=== PATIENT | female | born 1945 | race Caucasian/White ===

== ENCOUNTER → 2017-04-13 | Outpatient (REF) | payer MEDICARE, BC ==
[~2017-04-13] MED LIST: CELE1CAP7 PO; PRED20TA PO; TRAM50TA2 PO
[2017-04-16 00:06] LABS: Lyme Disease IgG/IgM Antibodie <0.91 ISR (0.00-0.90); Lyme Disease IgM Ab Quantitati <0.80 index (0.00-0.79)
== END ==
LOC: M LAB REF 16:16
PROVIDERS: ATTEND Nurse Practitioner Family
DX: R21 Rash and other nonspecific skin eruption (principal)

== ENCOUNTER 2017-05-26 08:44 | Emergency (ER) | payer MEDICARE, BC ==
[~2017-05-26] VITALS: Ht 160 cm; Wt 63.6 kg
[2017-05-26] MEDS ORDERED: TRAM50TA2 PO (08:54)
[2017-05-26] MEDS ORDERED: CELE1CAP7 PO (08:54)
[2017-05-26] MEDS ORDERED: methylPREDNISolone INJ 125 MG/2 ML VIAL (J2930) IM ONE (09:15)
[2017-05-26] MEDS ORDERED: KETOROLAC 30 MG/ML VIAL (J1885) IM ONE (09:15)
[2017-05-26] MEDS ORDERED: PRED20TA PO (09:53)
[2017-05-26 09:58] VITALS: BP 156/91
== END 2017-05-26 10:09 | disposition home or self-care (01) ==
LOC: M ED 08:44
DX: M54.32 Sciatica, left side (principal); M19.90 Unspecified osteoarthritis, unspecified site
CPT/HCPCS: 96372; 99283; J1885; J2930

== ENCOUNTER 2017-06-01 14:19 | Emergency (ER) | payer MEDICARE, BC ==
[~2017-06-01] VITALS: Ht 160 cm; Wt 64.5 kg
[2017-06-01] MEDS ORDERED: methylPREDNISolone INJ 125 MG/2 ML VIAL (J2930) IV ONE (17:00)
[2017-06-01] MEDS ORDERED: KETOROLAC 60 MG/2 ML VIAL (J1885) IM ONE (17:00)
[2017-06-01] MEDS ORDERED: ZOFR4TAB3 PO (17:18)
[2017-06-01] MEDS ORDERED: methylPREDNISolone INJ 125 MG/2 ML VIAL (J2930) IM ONE (17:30)
[2017-06-01] MEDS ORDERED: methylPREDNISolone INJ 125 MG/2 ML VIAL (J2930) As Ordered ONE (17:32)
[2017-06-01] MEDS ORDERED: KETOROLAC 60 MG/2 ML VIAL (J1885) As Ordered ONE (17:32)
[2017-06-01 17:58] VITALS: BP 150/88
== END 2017-06-01 18:24 | disposition home or self-care (01) ==
LOC: M ED 14:19
DX: M54.30 Sciatica, unspecified side (principal)
CPT/HCPCS: 96372; 99283; J1885; J2930

== ENCOUNTER → 2018-01-20 | Outpatient (REF) | payer MEDICARE, BC ==
[2018-01-20 19:33] LABS: GAMMA GLUTAMYLTRANSPEPTIDASE 21 U/L (5-55)
[2018-01-20 19:33] LABS: C REACTIVE PROTEIN QUANTITATIV < 0.30 MG/DL (0.00-0.30)
== END ==
LOC: M LAB REF 16:40
DX: R74.0 Nonspecific elevation of levels of transaminase and lactic acid dehydrogenase [LDH] (principal); M51.36 Other intervertebral disc degeneration, lumbar region
CPT/HCPCS: 82977

== ENCOUNTER → 2018-03-06 | Outpatient (REF) | payer MEDICARE, BC ==
[2018-03-06 19:33] LABS: GAMMA GLUTAMYLTRANSPEPTIDASE 30 U/L (5-55)
== END ==
LOC: M LAB REF 18:55
DX: R79.9 Abnormal finding of blood chemistry, unspecified (principal)
CPT/HCPCS: 82977

== ENCOUNTER → 2019-02-05 | Outpatient (REF) | payer MEDICARE, BC ==
[~2019-02-05] MED LIST changes: +ZOFR4TAB14 PO
[2019-02-05 17:54] LABS: PERCENT SATURATION 11.6 % (13.2-45.0)
[2019-02-05 17:58] LABS: FOLATE 17.3 NG/ML
== END ==
LOC: M LAB REF 16:41
PROVIDERS: ATTEND Family Medicine
DX: D64.9 Anemia, unspecified (principal)

== ENCOUNTER → 2019-12-17 | Outpatient (REF) | payer MEDICARE, BC | LOC: M LAB REF 16:06 | PROVIDERS: ATTEND Family Medicine | DX: R30.0 Dysuria (principal) ==

== ENCOUNTER → 2020-05-16 | Outpatient (REF) | payer MEDICARE, BC | LOC: M LAB REF 16:39 | PROVIDERS: ATTEND Registered Nurse | DX: N39.0 Urinary tract infection, site not specified (principal) ==

== ENCOUNTER → 2020-05-22 | Outpatient (REF) | payer MEDICARE, BC | LOC: M LAB REF 16:09 | PROVIDERS: ATTEND Physician Assistant Medical | DX: N39.0 Urinary tract infection, site not specified (principal) ==

== ENCOUNTER → 2021-01-30 | Outpatient (REF) | payer MEDICARE, BC ==
[2021-01-30 18:52] LABS: PERCENT SATURATION 6.8 % (13.2-45.0)
[2021-01-30 18:59] LABS: FOLATE 9.2 NG/ML
== END ==
LOC: M LAB REF 16:57
PROVIDERS: ATTEND Family Medicine
DX: D64.9 Anemia, unspecified (principal)

== ENCOUNTER → 2021-04-20 | Outpatient (REF) | payer MEDICARE, BC | LOC: M LAB REF 16:44 | PROVIDERS: ATTEND Family Medicine | DX: N39.0 Urinary tract infection, site not specified (principal) ==

== ENCOUNTER 2021-05-01 17:20 | Inpatient (IN) | payer MEDICARE, BC ==
[~2021-05-01] VITALS: Ht 160 cm; Wt 65.2 kg
--- OUTSIDE RECORDS SUMMARY | 2021-05-01 17:32 | CCD | Continuity of Care Document ---
Author Author Love VALDEZ [facility] Unknown Address [address] [place] [address] [place] [address] Phone [phone] Problems Description No Information Available Social History Type Date Description Comments Sex Unknown ETOH Use Denies alcohol use Tobacco Use Start: Unknown Patient has never smoked Allergies, Adverse Reactions, Alerts Description No Known Drug Allergies Medications Active Medications SIG Qnty Indications Ordering Provide r Date Amoxicillin 875mg Tablets take one tablet every 12 hrs.x 10 days. 20tabs J01.10 Jarett Ocasio JR., M.D. 03/31/2021 Valsartan Unknown Pantoprazole Sodium Unknown Vitamin D 3 Unknown Biotin Unknown Vitamin C Unknown Geritol Complete Unknown 00 Nyquil Severe Cold/Flu Unknown Tylenol 11:00 am today Unknown History Medications No Active Medications Unknown - 03/31/2021 Immunizations Description No Information Available Vital Signs Date Vital Result Comment 03/31/2021 3:23pm BP Systolic 153 mmHg BP Diastolic 90 mmHg Heart Rate 64 /min Respiratory Rate 6 /min O2 % BldC Oximetry 96 % Body Temperature 98.4 F Weight 145.00 lb Height 64 inches 5'4" BMI (Body Mass Index) 24.9 kg/m2 Pain Level 5 02/18/2015 5:39pm BP Systolic 174 mmHg BP Diastolic 95 mmHg Heart Rate 59 /min Respiratory Rate 18 /min O2 % BldC Oximetry 97 % Body Temperature 97.0 F Weight 148.00 lb Height 64 inches 5'4" BMI (Body Mass Index) 25.4 kg/m2 Pain Level 8 Results Description No Information Available Procedures Date Code Description Status 03/31/2021 32905 Office/Outpatient New Low MDM 30 -44 Minutes Completed Medical Devices Description No Information Available Encounters Type Date Location Provider Dx Diagnosis Office Visit 03/31/2021 1:15p Main Office CATRACHITO Iyv J01 .10 Acute frontal sinusitis, unspecified R05 Cough Z20.828 Contact w and exposure to ot h viral communicable diseases Assessments Date Code Description Provider 03/31/2021 J01.10 Acute frontal sinusitis, unspeci fied CATRACHITO Ivy 03/31/2021 R05 Cough CATRACHITO Doshi 03/31/2021 Z20.828 Contact with and ([place] spected) exposure to other viral communicable diseases CATRACHITO Ivy Plan of Treatment No Information Available Functional Status Description No Information Available Mental Status Description No Information Available Referrals Description No Information Available
--- OUTSIDE RECORDS SUMMARY | 2021-05-01 17:32 | CCD | Continuity of Care Document ---
Author Author Lab Schedule, [facility] Unknown Address [address] [address] Phone Unavailable Care Team Providers Care Matrix Bath Operator Name Role Phone Renard Abdi MD AUT[facility] [phone] [facility] [phone] Problems Active Problems Provider Date Osteoarthritis Onset: 04/20/2008 Hypertensive disorder Onset: 01/30/2008 Allergic rhinitis Onset: 01/27/2008 Squamous cell carcinoma Onset: 8 Insomnia Onset: Depressive disorder Onset: Osteopenia Onset: Finding of frequency of urination Onset: Social History Type Date Description Comments Sex Unknown ETOH Use Occasionally consumes wine Tobacco Use Start: Unknown Patient has never smoked Allergies and adverse reactions Active Allergies Criticality Reaction | Severity Comments Date Celexa Unable to assess criticality Mild, Nausea n/v 01/20/2012 Zoloft Unable to assess criticality Mild, Nausea n/v 01/20/2012 Medications Active Medications SIG Qnty Indications Ordering Provide r Date Levofloxacin 250mg Tablets 1 tablet by mouth daily for 7 days (normal Creatinine) 7tabs Renard Abdi M.D. 04/23/2021 Hydrocodone Polistirex/Chlorpheniramine Polistirex 10- 8mg/5ML Suer 1 teaspoon twice daily as needed cough 50ml Renard Abdi M.D. 04/03/2021 Trazodone HCL 50mg Tablets take one half tablet by mouth at bedtime 30tabs Renard Abdi M.D. 04/21/2020 Detrol LA 4mg Caps ER 24HR 1 by mouth every evening 90caps CATRACHITO Pagan JR 020 Vitamin D-3 25mcg (1000 Ut) Capsul es 2 by mouth every day otc Renard Abdi M.D. 020 Vitamin B-12 1000mcg Tablets 1 by mouth every day 90taraymond Abdi M.D. 02/02/2019 Celebrex 200mg Capsules 1 by mouth every day 90dario Abdi M.D. 03/03/2018 Ventolin HFA 108(90Base) mcg/Act A erosol 2 puffs every 4 hours as needed for shortness of breath 3units Phyl Xiao, PLUG CUTTER 05/03/2017 Multivitamins Capsules 1 by mouth every day 30dario Abdi M.D. 12/08/2015 Aspir-[address] 1 by mouth every day Renard Abdi M.D. 05/22/2015 Flonase Allergy Relief 50mcg/Act Suspension take as directed. as needed 29.7ml Renard acevedo M.D. 03/15/2013 Lisinopril 10mg Tablets one pill by mouth daily 90tabs Renard Abdi M.D. History Medications Macrobid 100mg Capsules 1 by mouth twice a day x 7 days 14caps Renard Abdi M.D. 04/20/2021 - 04/23/2021 Medications Administered in Office Medication SIG Qnty Indications Ordering Provider Date Administration Of Flu Vaccine Inj ection Renard Abdi M.D. 04/21/2020 Immunizations CPT Code Status Date Vaccine Lot # [id number] Given 04/21/2020 Influenza Vaccin e Quadrivalent Preser/Antibiotic Free Im Use [id number] Given 07/20/2010 Zoster Vaccine 66857 Given 07/22/2008 Adacel- Tetanus Diphtheria P ertussis 68822 Refused 12/08/2017 Pneumovax 23 47587 Refused 12/08/2017 Prevnar 13 19729 Refused 04/25/2013 Influenza Virus Vaccine 41414 Refused 04/11/2012 Influenza Virus Vaccine 34189 Refused 04/17/2008 Influenza Virus Vaccine Vital Signs Date Vital Result Comment 05/22/2020 1:58pm BP Systolic 140 mmHg BP Diastolic 70 mmHg Heart Rate 75 /min Height 65 inches 5'5" Weight 148.00 lb O2 % BldC Oximetry 96 % RM Air BMI (Body Mass Index) 24.6 kg/m2 05/16/2020 1:49pm BP Systolic 142 mmHg RT Arm BP Diastolic 68 mmHg RT Arm Heart Rate 80 /min Height 65 inches 5'5" Weight 148.00 lb BMI (Body Mass Index) 24.6 kg/m2 Results Test Acquired Date Facility Test Result H/L Range Note Laboratory test finding 04/20/2021 [place] [id number] [place] [id number] [phone] Urine Culture FULL REPORT IN L <SEE NOTE> Normal 1, 2 Ua Dipstick Only 04/20/2021 [facility] Mud Trucker: [place] [address] [phone] Urine Color YELLOW Yellow 3 Urine Appearance TURBID Abnormal Clear Urine PH 8.0 units 5.0 - 9.0 Urine Specific [place] 1.010 1.005 - 1.030 Urine Leukocytes MODERATE Abnormal Negative Urine Blood MODERATE Abnormal Negative Urine Protein NEGATIVE Negative -Trace Urine Glucose NEGATIVE mg/dL Negative Urine Nitrite POSITIVE Abnormal Negative Urine Ketone NEGATIVE mg/dL Negative Urine Bilirubin NEGATIVE Negative Urine Urobilinogen 0.2 mg/dL 0.2 - 1.0 Total Iron Binding Capacit 01/30/2021 [place] [id number] [phone] Iron (Fe) 34 g/dL Low 50-170 Total Iron Binding Capacity 498 g/dL High 250-450 Percent Saturation 6.8 % Low 13.2-45.0 Laboratory test finding 01/30/2021 [place] [id number] [phone] Ferritin 8 NG/ML Normal 8-252 Vitamin B12 & Folate 01/30/[address] [address] [phone] Vitamin B12 Level 781 pg/mL Normal 4 Folate 9.2 NG/ML Normal 5 Complete Blood Count 01/30/2021 [facility] Mud Trucker: Dr Jarett Ocasio [place] [id number] [phone] WBC 3.9 x10*3/UL Low 4.1 - 10.9 6 RBC 4.52 x10*6/UL 4.20 - 6.30 Hemoglobin 10.1 g/dL Low 12.0 - 18.0 Hematocrit 32.3 % Low 37.0 - 51.0 MCV 71.4 fL Low 80.0 - 97.0 MCH 22.4 pg Low 26.0 - 32.0 MCHC 31.4 g/dL 31.0 - 38.0 RDW 16.2 % High 11.6 - 13.7 PLT 254 x10*3/UL 140 - 440 MPV 9.7 FL 7.8 - 11.0 Lymph % 36.3 % 10.0 - 58.5 Mid % 8.9 % 1.7 - 9.3 Neut % 54.8 % 37.0 - 92.0 Lymph # 1.4 x10*3/UL 0.6 - 4.1 Mid # 0.4 x10*3/UL 0.1 - 0.6 Neut # 2.1 x10*3/UL 2.0 - 7.8 Comprehensive Chem Profile 01/30/2021 [facility]: [place] [address] [phone] Glucose 79 mg/dL 74 - 99 7 BUN 25 mg/dL High 7 - 18 Creatinine 0.8 mg/dL 0.6 - 1.3 Sodium 142 mEq/L 136 - 145 Potassium 4.2 mEq/L 3.5 - 5.1 Chloride 106 mEq/L 98 - 107 Carbon Dioxide 30 mEq/L 21 - 32 Calcium 9.7 mg/dL 8.5 - 10.1 Alk. Phosphatase 70 mg/dL 46 - 116 Total Bilirubin 0.5 mg/dL 0.2 - 1.0 Ast (Sgot) 42 U/L High 15 - 37 Alt (SGPT) 48 U/L 12 - 78 Albumin 4.0 g/dL 3.4 - 5.0 Total Protein 7.7 g/dL 6.4 - 8.2 A/G Ratio 1.08 CALC 1.00 - 1.90 GFR >= 60 mL/min >60 GFR >= 60 mL/min >60 8 Laboratory test finding 01/30/2021 [facility] Mud Trucker: [place] [address] [phone] Thyroid Stimulating Hormone 1.91 uIU/mL 0.3 6 - 3.74 Ua Dipstick Only 01/30/2021 [facility] Mud Trucker: [place] [address] [phone] Urine Color YELLOW Yellow Urine Appearance SL. HAZY Abnormal Clear Urine PH 5.0 units 5.0 - 9.0 Urine Specific [place] 1.015 1.005 - 1.030 Urine Leukocytes MODERATE Abnormal Negative Urine Blood MODERATE Abnormal Negative Urine Protein 1+ Abnormal Negative -Trace Urine Glucose NEGATIVE mg/dL Negative Urine Nitrite NEGATIVE Negative Urine Ketone NEGATIVE mg/dL Negative Urine Bilirubin NEGATIVE Negative Urine Urobilinogen 0.2 mg/dL 0.2 - 1.0 1 on Macrobid - will change to Levaquin until sees urology (had cx'd appt prior and saw doctors in [place] but no information). JW 2 FULL REPORT IN LAB NOTES (e[facility] W and [place]). ORGANISM 1: KLEBSIELLA PNEUMONIAE COLONY COUNT >100,000 ORGANISM 1: KLEBSIELLA PNEUMONIAE KLEBSIELLA PNEUMONIAE: REACTION TRIMETHOPRIM/SULFAMETHOXAZOLE IV 160mg TMP & 800mg SMXq6h <=20 S TRIMETHOPRIM/SULFAMETHOXAZOLE PO Bactrim DS Bid <=20 S AMPICILLIN IV 500mg q6h >=32 R AMPICILLIN PO 500mg q6h fasting >=32 R GENTAMICIN IV 80mg q8h <=1 S NITROFURANTOIN PO 100mg BID 64 I CEFAZOLIN IV 1gm q8h <=4 S LEVOFLOXACIN IV 500mg qd <=0.12 S LEVOFLOXACIN PO 250mg qd <=0.12 S LEVOFLOXACIN PO 500mg qd <=0.12 S TOBRAMYCIN IV 80mg q8h <=1 S CEFTRIAXONE IV 1gm q24h <=1 S CEFTAZIDIME IV 1gm q8h <=1 S AMPICILLIN/SULBACTAM IV 1.5g q6h 8 S PIPERACILLIN/TAZOBACTAM IV 2.25 gm q6h <=4 S AZTREONAM IV 1gm q8h <=1 S ERTAPENEM IV 1gm qd <=0.5 S MEROPENEM IV 1 gm q8h <=0.25 S MEROPENEM IV 500 mg q8h <=0.25 S TIGECYCLINE IV 50mg q12h 1 S CEFEPIME IV 1 gm q12h <=1 S CEFEPIME IV 2 gm q12h <=1 S EXTD BRD SPCTRM BETA LACTAMASE IV NEGATIVE FOR ESBL 3 started macrobid - [facility] - Nitrate positive, renal function normal on recent check. JW 4 VITAMIN B12 NORMAL RANGE NORMAL 247 - 911 PG/ML INDETERMINATE 211 - 246 PG/ML DEFICIENT LESS THAN 211 PG/ML 5 FOLATE NORMAL RANGE NORMAL GREATER THAN 5.4 NG/ML INDETERMINATE 3.4-5.4 NG/ML DEFICIENT LESS THAN 3.4 NG/ML 6 attempted to reach her (see triage), has appt but is to get records from [place] since most of year there. 7 100-125 mg/dL PRE-DIABET ES/FASTING >126 mg/dL DIABETES/FASTING 8 CHRONIC KIDNEY DISEASE STAGI NG PER NKF STAGE I & II GFR >= 60 NORMAL TO MILDLY DECREASED STAGE III GFR 30-59 MODERATELY DECREASED STAGE IV GFR 15-29 SEVERELY DECREASED STAGE V GFR <15 VERY LITTLE GFR LEFT ESRD GFR <15 ON AERIAL HURRICANE HUNTER Procedures Date Code Description Status 07/27/2016 225051450 Bone Mineral Density Test Comple melly 06/14/2012 [id number] Mammogram Completed Medical Devices Description No Information Available Encounters Description No Information Available Assessments Date Code Description Provider 01/30/2021 D64.9 Anemia, unspecified Renard pandya M.D. 01/30/2021 I12.9 Hypertensive chronic kidney disease with stage 1 through stage 4 chronic kidney disease, or unspecified chronic kidney disease Lab Schedule 01/30/2021 I12.9 Hypertensive chronic kidney disease with stage 1 through stage 4 chronic kidney disease, or unspecified chronic kidney disease Renard Abdi M.D. 01/30/2021 N18.30 Chronic kidney disease, stage 3 unspecified Lab Schedule 01/30/2021 N18.30 Chronic kidney disease, stage 3 unspecified Renard Abdi M.D. 01/30/2021 E78.5 Hyperlipidemia, unspecified Lab Schedule 01/30/2021 E78.5 Hyperlipidemia, unspecified Tee Abdi M.D. Plan of Treatment 04/21/2020 - Renard Abdi M.D.* I12.9 Hypertensive chronic kidney disease w stg 1-4/unsp chr kdny * N18.30 Chronic kidney disease, stage 3 unspecified * E78.5 Hyperlipidemia, unspecified * I35.8 Other nonrheumatic aortic valve disorders * G47.09 Other insomnia * M79.605 Pain in left leg * Z85.828 Personal history of other malignant neoplasm of skin * Z23 Encounter for immunization * * Comments:* 1. Hypertension: Patient is doing well on current medications. We will continue to follow.2. Hyperlipidemia: Patient is doing well. We will follow.3. Malignant neoplasm of skin: No new symptoms. She follows up with hiv/aids care nurse at [place].4. Hypertensive chronic kidney disease: Stable. We will monitor.5. Chronic kidney disease: Stable. We will monitor.6. Nonrheumatic aortic valve disorders: No new symptoms at present. We will monitor.7. Insomnia: Not sleeping well. Zoloft does not work. Prescribed Trazodone. We will monitor.8. Pain in left leg: Improved. Follows with doctor at [place]. We will monitor.Ongoing cares: I am going to see her again in 5 months with comprehensive chem profile, lipid profile. If she has new problems or issues sooner, she will let us know. Functional Status Description No Information Available Mental Status Description No Information Available Referrals Refer to Reason for Referral Status Appt Date [facility] CONSULT FOR RECURRENT UTI'S Patient No tified 03/27/2021 [id number] eZv GRAY, [place] [address] [phone]
--- OUTSIDE RECORDS SUMMARY | 2021-05-01 17:32 | CCD | Continuity of Care Document ---
Author Author Love VALDEZ [facility] Unknown Address [address] [place] [address] [place] [address] Phone [phone] Problems Description No Information Available Social History [...] Available Procedures Date Code Description Status 03/31/2021 01126 Office/Outpatient New Low MDM 30 -44 Minutes Completed Medical Devices Description No Information Available Encounters Type Date Location Provider Dx Diagnosis Office Visit 03/31/2021 1:15p Main Office CATRACHITO Ivy J01 .10 Acute frontal sinusitis, unspecified R05 [...]
--- OUTSIDE RECORDS SUMMARY | 2021-05-01 17:32 | CCD | Continuity of Care Document ---
Author Author Love NGUYEN M.D. Organization Unknown Address [address] [facility] [address] [place] [address] Phone [phone] Care Team Providers Care Cut And Cover Line Worker Name Role Phone Renard Nguyen MD [facility] [phone] Problems Active Problems Provider Date Osteoarthritis Onset: 04/20/2008 Hypertensive disorder Onset: 01/30/2008 Allergic rhinitis Onset: 01/27/2008 Squamous cell carcinoma Onset: 8 Insomnia Onset: Depressive disorder Onset: Osteopenia Onset: Finding of frequency of urination Onset: Social History Type Date Description Comments Sex Unknown ETOH Use Occasionally consumes wine Tobacco Use Start: Unknown Patient has never smoked Allergies, Adverse Reactions, Alerts Active Allergies Criticality Reaction | Severity Comments Date Celexa Unable to assess criticality Mild, Nausea n/v 01/20/2012 Zoloft Unable to assess criticality Mild, Nausea n/v 01/20/2012 Medications Active Medications SIG Qnty Indications Ordering Provide r Date Keflex 250mg Capsules 1 by mouth two times a day x 5 days 10caps CATRACHITO Pagan JR 020 Prednisone 20mg Tablets 1 by mouth every morning for 7 days 7tabs CATRACHITO Pagan JR 11/2019 Trazodone HCL 50mg Tablets take one half tablet by mouth at bedtime 30tabs Renard Nguyen M.D. 04/21/2020 Tussionex Pennkinetic Extended Release 10-8mg/5ML Suer 1/2 to 1 teaspoon at twice a day as needed cough 115ml R05 Renard Nguyen M.D. 04/21/2020 Detrol LA 4mg Caps ER 24HR 1 by mouth every evening 90caps CATRACHITO Pagan JR 020 Vitamin D-3 25mcg (1000 Ut) Capsul es 2 by mouth every day otc Renard Nguyen M.D. 020 Vitamin B-12 1000mcg Tablets 1 by mouth every day 90taraymond Nguyen M.D. 02/02/2019 Celebrex 200mg Capsules 1 by mouth every day 90dario Nguyen M.D. 03/03/2018 Tramadol HCL 50mg Tablets 1tab twice a day as needed pain 60tabs Renard Nguyen M.D. 05/24/2017 Ventolin HFA 108(90Base) mcg/Act A erosol 2 puffs every 4 hours as needed for shortness of breath 3units Dinesh Xiao, ROLLING MILL PLUGGER 05/03/2017 Multivitamins Capsules 1 by mouth every day 30capmoira Nguyen M.D. 12/08/[address]ir-[address] 1 by mouth every day Renard Nguyen M.D. 05/22/2015 Flonase Allergy Relief 50mcg/Act Suspension take as directed. as needed 29.7ml Renard acevedo M.D. 03/15/2013 Lisinopril 10mg Tablets one pill by mouth daily 90tabs Renard Nguyen M.D. Medications Administered in Office Medication SIG Qnty Indications Ordering Provider Date Administration Of Flu Vaccine Inj ection Renard Nguyen M.D. 04/21/2020 Immunizations CPT Code Status Date Vaccine Lot # [id number] Given 04/21/2020 Influenza Vaccin e Quadrivalent Preser/Antibiotic Free Im Use [id number] 56379 Given 07/20/2010 Zoster Vaccine 61716 Given 07/22/2008 Adacel- Tetanus Diphtheria P ertussis (Age64 & Under) 31210 Refused 12/08/2017 Pneumovax 23 10744 Refused 12/08/2017 Prevnar 13 58795 Refused 04/25/2013 Influenza Virus Vaccine 61536 Refused 04/11/2012 Influenza Virus Vaccine 02200 Refused 04/17/2008 Influenza Virus Vaccine Vital Signs [...] Date Facility Test Result H/L Range Note Total Iron Binding Capacit 01/30/2021 [facility] [address] [place], [place] [id number] [phone] Iron (Fe) 34 g/dL Low 50-170 Total Iron Binding Capacity 498 g/dL High 250-450 Percent Saturation 6.8 % Low 13.2-45.0 Laboratory test finding 01/30/2021 [facility] [address] [place], [place] [id number] [phone] Ferritin 8 NG/ML Normal 8-252 Vitamin B12 & Folate 01/30/2021 [facility] [address] [place], [place] [address] [phone] Vitamin B12 Level 781 pg/mL Normal 1 Folate 9.2 NG/ML Normal 2 Complete Blood Count 01/30/2021 [facility] Home Health Lvn: [place] [address] [phone] WBC 3.9 x10*3/UL Low 4.1 - 10.9 RBC 4.52 x10*6/UL 4.20 - 6.30 Hemoglobin [...] 2.0 - 7.8 Comprehensive Chem Profile 01/30/2021 [facility], [facility] Lvn: [place] [address] [phone] Glucose 79 mg/dL 74 - 99 3 BUN 25 mg/dL High 7 - 18 [...] mL/min >60 GFR >= 60 mL/min >60 4 Laboratory test finding 01/30/2021 [facility], Home Health Lvn: [place] [address] [phone] Thyroid Stimulating Hormone 1.91 uIU/mL 0.3 6 - 3.74 Ua Dipstick Only 01/30/2021 [facility] , Home Health Lvn: [place] [address] [phone] Urine Color YELLOW Yellow Urine Appearance SL. HAZY Abnormal Clear Urine PH 5.0 units 5.0 - 9.0 Urine Specific [place] 1.015 1.005 - 1.030 Urine Leukocytes MODERATE Abnormal Negative Urine Blood MODERATE Abnormal Negative Urine Protein 1+ Abnormal Negative -Trace Urine Glucose NEGATIVE mg/dL Negative Urine Nitrite NEGATIVE Negative Urine Ketone NEGATIVE mg/dL Negative Urine Bilirubin NEGATIVE Negative Urine Urobilinogen 0.2 mg/dL 0.2 - 1.0 1 VITAMIN B12 NORMAL RANGE NORMAL 247 - 911 PG/ML INDETERMINATE 211 - 246 PG/ML DEFICIENT LESS THAN 211 PG/ML 2 FOLATE NORMAL RANGE NORMAL GREATER THAN 5.4 NG/ML INDETERMINATE 3.4-5.4 NG/ML DEFICIENT LESS THAN 3.4 NG/ML 3 100-125 mg/dL PRE-DIABET ES/FASTING >126 mg/dL DIABETES/FASTING 4 CHRONIC KIDNEY DISEASE STAGI NG PER NKF STAGE I & II GFR >= 60 NORMAL TO MILDLY DECREASED STAGE III GFR 30-59 MODERATELY DECREASED STAGE IV GFR 15-29 SEVERELY DECREASED STAGE V GFR <15 VERY LITTLE GFR LEFT ESRD GFR <15 ON SUPERVISOR EDGING Procedures Date Code Description Status 07/27/2016 [id number] Bone Mineral Density Test Comple melly 06/14/2012 [id number] Mammogram Completed Medical Devices Description No Information Available Encounters Description No Information Available Assessments Date Code Description Provider 01/30/2021 D64.9 Anemia, unspecified Rneard pandya M.D. 01/30/2021 I12.9 Hypertensive chronic kidney disease with stage 1 through stage 4 chronic kidney disease, or unspecified chronic kidney disease Lab Schedule 01/30/2021 I12.9 Hypertensive chronic kidney disease with stage 1 through stage 4 chronic kidney disease, or unspecified chronic kidney disease Renard Nguyen M.D. 01/30/2021 N18.30 Chronic kidney disease, stage 3 unspecified Lab Schedule 01/30/2021 N18.30 Chronic kidney disease, stage 3 unspecified Renard Nguyen M.D. 01/30/2021 E78.5 Hyperlipidemia, unspecified Lab Schedule 01/30/2021 E78.5 Hyperlipidemia, unspecified Tee Nguyen M.D. Plan of Treatment Future Appointment(s):* 03/30/2021 1:00 pm - [facility] 04/21/2020 - Renard Nguyen M.D.* I12.9 Hypertensive chronic kidney disease w [...] No new symptoms. She follows up with certified bench jeweler technician at [place].4. Hypertensive chronic kidney disease: Stable. We will monitor.5. Chronic kidney disease: Stable. We will monitor.6. Nonrheumatic aortic valve disorders: No new symptoms at present. We will monitor.7. Insomnia: Not sleeping well. Zoloft does not work. Prescribed Trazodone. We will monitor.8. Pain in left leg: Improved. Follows with doctor at [place]. We will monitor.Ongoing cares: I am going to see her again in 5 months with comprehensive chem profile, lipid profile. If she has new problems or issues sooner, she will let us know. Functional Status Description No Information Available Mental Status Description No Information Available Referrals Refer to Reason for Referral Status Appt Date [facility] CONSULT FOR RECURRENT UTI'S Patient No tified 03/27/2021 [id number] Zev RGAY, [place] [address] [phone]
--- OUTSIDE RECORDS SUMMARY | 2021-05-01 17:32 | CCD ---
Continuity of Care Document (CCD) Created on: 04/24/2021 TobiasLove flores External Reference #: [id number] : [id number] Sex: Female Author Author Lab Schedule, [facility] Unknown Address [address] [address] Phone Unavailable Care Team Providers Care Locomotive Oiler Name Role Phone Renard Abdi MD AUTM [phone] [facility] AUTM Problems Active Problems Provider Date Osteoarthritis Onset: [...] for shortness of breath 3units Phyl Xiao, CURRICULUM MANAGER 05/03/2017 Multivitamins Capsules 1 by mouth every [...] CPT Code Status Date Vaccine Lot # [id number] Given 04/21/2020 Influenza Vaccin e Quadrivalent Preser/Antibiotic Free Im Use [id number] 86437 Given 07/20/2010 Zoster Vaccine 32558 Given 07/22/2008 Adacel- Tetanus Diphtheria P ertussis 18257 Refused 12/08/2017 Pneumovax 23 03389 Refused 12/08/2017 Prevnar 13 83918 Refused 04/25/2013 Influenza Virus Vaccine 50326 Refused 04/11/2012 Influenza Virus Vaccine 06526 Refused 04/17/2008 Influenza Virus Vaccine Vital Signs [...] H/L Range Note Laboratory test finding 04/20/2021 [place] [id number] [place] [id number] [phone] Urine Culture FULL REPORT IN L <SEE NOTE> Normal 1, 2 Ua Dipstick Only 04/20/2021 [facility] Educational Recruiter: [place] [address] [phone] Urine Color YELLOW Yellow 3 Urine Appearance TURBID Abnormal Clear Urine PH 8.0 units 5.0 - 9.0 Urine Specific [place] 1.010 1.005 - 1.030 Urine Leukocytes MODERATE Abnormal Negative Urine Blood MODERATE Abnormal Negative Urine Protein NEGATIVE Negative -Trace Urine Glucose NEGATIVE mg/dL Negative Urine Nitrite POSITIVE Abnormal Negative Urine Ketone NEGATIVE mg/dL Negative Urine Bilirubin NEGATIVE Negative Urine Urobilinogen 0.2 mg/dL 0.2 - 1.0 Total Iron Binding Capacit 01/30/2021 [place] [id number] [phone] Iron (Fe) 34 g/dL Low 50-170 Total Iron Binding Capacity 498 g/dL High 250-450 Percent Saturation 6.8 % Low 13.2-45.0 Laboratory test finding 01/30/2021 [place] [id number] [phone] Ferritin 8 NG/ML Normal 8-252 Vitamin B12 & Folate 01/30/[address] [address] [phone] Vitamin B12 Level 781 pg/mL Normal 4 Folate 9.2 NG/ML Normal 5 Complete Blood Count 01/30/2021 [facility] Educational Recruiter: Dr Jarett Ocasio [place] [id number] [phone] WBC 3.9 x10*3/UL Low 4.1 - 10.9 [...] 2.0 - 7.8 Comprehensive Chem Profile 01/30/2021 [facility] Educational Recruiter: Dr J[place] [address] [phone] Glucose 79 mg/dL 74 - 99 7 [...] mL/min >60 8 Laboratory test finding 01/30/2021 [facility] Educational Recruiter: [place] [address] [phone] Thyroid Stimulating Hormone 1.91 uIU/mL 0.3 6 - 3.74 Ua Dipstick Only 01/30/2021 [facility] Educational Recruiter: [place] [address] [phone] Urine Color YELLOW Yellow Urine Appearance SL. HAZY Abnormal Clear Urine PH 5.0 units 5.0 - 9.0 Urine Specific [place] 1.015 1.005 - 1.030 Urine Leukocytes MODERATE [...] cx'd appt prior and saw doctors in [place] but no information). JW 2 FULL REPORT [...] ESBL 3 started macrobid - sent to [facility] - Nitrate positive, renal function normal on recent check. JW 4 VITAMIN B12 NORMAL RANGE NORMAL 247 - 911 PG/ML INDETERMINATE 211 - 246 PG/ML DEFICIENT LESS THAN 211 PG/ML 5 FOLATE NORMAL RANGE NORMAL GREATER THAN 5.4 NG/ML INDETERMINATE 3.4-5.4 NG/ML DEFICIENT LESS THAN 3.4 NG/ML 6 attempted to reach her (see triage), has appt but [place] to get records from [place] since most of year there. 7 100-125 mg/dL PRE-DIABET ES/FASTING >126 mg/dL DIABETES/FASTING 8 CHRONIC KIDNEY DISEASE STAGI NG PER NKF STAGE I & II GFR >= 60 NORMAL TO MILDLY DECREASED STAGE III GFR 30-59 MODERATELY DECREASED STAGE IV GFR 15-29 SEVERELY DECREASED STAGE V GFR <15 VERY LITTLE GFR LEFT ESRD GFR <15 ON MOBILE MECHANIC Procedures Date Code Description Status 07/27/2016 [id number] Bone Mineral Density Test Comple melly 06/14/2012 [id number] Mammogram Completed Medical Devices Description No Information Available Encounters Description No Information Available Assessments Date Code Description Provider 04/20/2021 R35.0 Frequency of micturition Renard Abdi M.D. 04/20/2021 R35.0 Frequency of micturition Lab [facility] 01/30/2021 D64.9 Anemia, unspecified Renard pandya M.D. [...] No new symptoms. She follows up with government sales manager at [place].4. Hypertensive chronic kidney disease: Stable. [...] to Reason for Referral Status Appt Date [facility] CONSULT FOR RECURRENT UTI'S Patient No tified 03/27/2021 [id number], [facility] [place] [address] [phone]
--- OUTSIDE RECORDS SUMMARY | 2021-05-01 17:32 | CCD | Continuity of Care Document ---
Author Author Lab Schedule, [facility] Unknown Address [address] [address] Phone Unavailable Care Team Providers Care Workday Manager Name Role Phone Renard Abdi MD AUTM [phone] Problems Active Problems Provider Date Osteoarthritis Onset: [...] at bedtime 30tabs Renard Abdi M.D. 04/21/2020 Tussionex Pennkinetic Extended Release 10-8mg/5ML Suer 07/19 to 1 teaspoon at twice a day as needed cough 115ml R05 Renard Abdi M.D. 04/21/2020 Detrol LA 4mg Caps ER 24HR 1 by mouth every evening 90caps CATRACHITO Pagan JR 020 Vitamin D-3 25mcg (1000 Ut) Capsul es 2 by mouth every day otc Renard Abdi M.D. 020 Vitamin B-12 1000mcg Tablets 1 by mouth every day 90taraymond Abdi M.D. 02/02/2019 Celebrex 200mg Capsules 1 by mouth every day 90dario Abdi M.D. 03/03/2018 Tramadol HCL 50mg Tablets 1tab twice a day as needed pain 60tabs Renard Abdi M.D. 05/24/2017 Ventolin HFA 108(90Base) mcg/Act A erosol 2 puffs every 4 hours as needed for shortness of breath 3units MAGDALENA Villarreal 05/03/2017 Multivitamins Capsules 1 by mouth every day 30caps Renard Abdi M.D. 12/08/2015 [address]ir-[address] 1 by mouth every day Renard Abdi M.D. 05/22/2015 Flonase Allergy Relief 50mcg/Act Suspension take as directed. as needed 29.7ml Renard acevedo M.D. 03/15/2013 Lisinopril 10mg Tablets one pill by mouth daily 90tabs Renard Abdi M.D. Medications Administered in Office Medication SIG Qnty Indications Ordering Provider Date Administration Of Flu Vaccine Inj ection Renard Abdi M.D. 04/21/2020 Immunizations CPT Code Status Date Vaccine Lot # [id number] Given 04/21/2020 Influenza Vaccin e Quadrivalent Preser/Antibiotic Free Im Use [id number] 02676 Given 07/20/2010 Zoster Vaccine 23630 Given 07/22/2008 Adacel- Tetanus Diphtheria P ertussis (Age64 & Under) 01323 Refused 12/08/2017 Pneumovax 23 04299 Refused 12/08/2017 Prevnar 13 85222 Refused 04/25/2013 Influenza Virus Vaccine 46645 Refused 04/11/2012 Influenza Virus Vaccine 41969 Refused 04/17/2008 Influenza Virus Vaccine Vital Signs [...] Range Note Total Iron Binding Capacit 01/30/2021 [facility] [address] [place] [address] [phone] Iron (Fe) 34 g/dL Low 50-170 Total Iron Binding Capacity 498 g/dL High 250-450 Percent Saturation 6.8 % Low 13.2-45.0 Laboratory test finding 01/30/2021 [facility] [address] [place] [address] [phone] Ferritin 8 NG/ML Normal 8-252 Vitamin B12 & Folate 01/30/2021 [facility] enter [address] [place] [address] [phone] Vitamin B12 Level 781 pg/mL Normal 1 Folate 9.2 NG/ML Normal 2 Complete Blood Count 01/30/2021 [facility] Flare Breaker: [place] [address] [phone] WBC 3.9 x10*3/UL Low 4.1 - 10.9 3 RBC 4.52 x10*6/UL 4.20 - 6.30 Hemoglobin [...] 2.0 - 7.8 Comprehensive Chem Profile 01/30/2021 [facility] Flare Breaker: [place] [address] [phone] Glucose 79 mg/dL 74 - 99 4 BUN 25 mg/dL High 7 - 18 [...] mL/min >60 GFR >= 60 mL/min >60 5 Laboratory test finding 01/30/2021 [facility], Flare Breaker: [place] [address] [phone] Thyroid Stimulating Hormone 1.91 uIU/mL 0.3 6 - 3.74 Ua Dipstick Only 01/30/2021 [facility] , Flare Breaker: [place] [address] [phone] Urine Color YELLOW Yellow Urine Appearance SL. HAZY Abnormal Clear Urine PH 5.0 units 5.0 - 9.0 Urine Specific [place] 1.015 1.005 - 1.030 Urine Leukocytes MODERATE [...] NG/ML DEFICIENT LESS THAN 3.4 NG/ML 3 attempted to reach her (see triage), has appt but is to get records from [place] since most of year there. 4 100-125 mg/dL PRE-DIABET ES/FASTING >126 mg/dL DIABETES/FASTING 5 CHRONIC KIDNEY DISEASE STAGI NG PER NKF STAGE I & II GFR >= 60 NORMAL TO MILDLY DECREASED STAGE III GFR 30-59 MODERATELY DECREASED STAGE IV GFR 15-29 SEVERELY DECREASED STAGE V GFR <15 VERY LITTLE GFR LEFT ESRD GFR <15 ON COMPUTER TAPE LIBRARIAN Procedures Date Code Description Status 07/27/2016 [id number] Bone Mineral Density Test Comple melly 06/14/2012 [id number] Mammogram Completed Medical Devices Description No Information [...] unspecified Tee Abdi M.D. Plan of Treatment Future Appointment(s):* 03/30/2021 1:00 pm - Renard Abdi M.D. at [facility] 04/21/2020 - Renard Abdi M.D.* I12.9 Hypertensive [...] No new symptoms. She follows up with community outreach manager at [place].4. Hypertensive chronic kidney disease: Stable. We will monitor.5. Chronic kidney disease: Stable. We will monitor.6. Nonrheumatic aortic valve disorders: No new symptoms at present. We will monitor.7. Insomnia: Not sleeping well. Zoloft does not work. Prescribed Trazodone. We will monitor.8. Pain in left leg: Improved. Follows with doctor at [place]. We will monitor.Ongoing cares: I am going to see her again in 5 months with comprehensive chem profile, lipid profile. If she has new problems or issues sooner, she will let us know. Functional Status Description No Information Available Mental Status Description No Information Available Referrals Refer to Reason for Referral Status Appt Date [facility] CONSULT FOR RECURRENT UTI'S Patient No tified 03/27/2021 [id number], [facility] [place] [address] [phone]
--- OUTSIDE RECORDS SUMMARY | 2021-05-01 17:32 | CCD | Continuity of Care Document ---
Author Author Lab Schedule, [facility] Unknown Address [address] [address] Phone Unavailable Care Team Providers Care Supply Requirements Officer Name Role Phone Renard Abdi MD AUTM [phone] Problems Active Problems Provider Date Osteoarthritis Onset: [...] SIG Qnty Indications Ordering Provide r Date Macrobid 100mg Capsules 1 by mouth twice a day x 7 days 14caps Renard Abdi M.D. 04/20/2021 Hydrocodone Polistirex/Chlorpheniramine Polistirex 10- 8mg/5ML Suer 1 [...] 1000mcg Tablets 1 by mouth every day 90arpit Abdi M.D. 02/02/2019 Celebrex 200mg Capsules 1 by mouth every day 90dario Abdi M.D. 03/03/2018 Ventolin HFA 108(90Base) mcg/Act A erosol 2 puffs every 4 hours as needed for shortness of breath 3units Phyl MAGDALENA Xiao 05/03/2017 Multivitamins Capsules 1 by mouth every day 30dario Abdi M.D. 12/08/2015 [address]ir-[address] 1 by mouth every day Renard Abdi M.D. 05/22/2015 Flonase Allergy Relief 50mcg/Act Suspension take as directed. as needed 29.7ml Renard acevedo M.D. 03/15/2013 Lisinopril 10mg Tablets one pill by mouth daily 90taraymond Abdi M.D. Amoxicillin 500mg Capsules two times a day for 7 days Unknown Medications Administered in Office Medication SIG Qnty Indications Ordering Provider Date Administration Of Flu Vaccine Inj ection Renard Abdi M.D. 04/21/2020 Immunizations CPT Code Status Date Vaccine Lot # [id number] Given 04/21/2020 Influenza Vaccin e Quadrivalent Preser/Antibiotic Free Im Use [id number] 83095 Given 07/20/2010 Zoster Vaccine 82550 Given 07/22/2008 Adacel- Tetanus Diphtheria P ertussis 36677 Refused 12/08/2017 Pneumovax 23 14299 Refused 12/08/2017 Prevnar 13 36615 Refused 04/25/2013 Influenza Virus Vaccine 72561 Refused 04/11/2012 Influenza Virus Vaccine 83669 Refused 04/17/2008 Influenza Virus Vaccine Vital Signs [...] H/L Range Note Laboratory test finding 04/20/2021 [place] [address] [phone] Urine Culture <pending> Ua Dipstick Only 04/20/2021 [facility] Purchasing Engineer: Dr Jarett Ocasio [place] [id number] [phone] Urine Color YELLOW Yellow 1 Urine Appearance TURBID Abnormal Clear Urine PH 8.0 units 5.0 - 9.0 Urine Specific [place] 1.010 1.005 - 1.030 Urine Leukocytes MODERATE Abnormal Negative Urine Blood MODERATE Abnormal Negative Urine Protein NEGATIVE Negative -Trace Urine Glucose NEGATIVE mg/dL Negative Urine Nitrite POSITIVE Abnormal Negative Urine Ketone NEGATIVE mg/dL Negative Urine Bilirubin NEGATIVE Negative Urine Urobilinogen 0.2 mg/dL 0.2 - 1.0 Total Iron Binding Capacit 01/30/2021 [place] [id number] [phone] Iron (Fe) 34 g/dL Low 50-170 Total Iron Binding Capacity 498 g/dL High 250-450 Percent Saturation 6.8 % Low 13.2-45.0 Laboratory test finding 01/30/[address] [address] [phone] Ferritin 8 NG/ML Normal 8-252 Vitamin B12 & Folate 01/30/2021 [facility] enter [address] [place] [address] [phone] Vitamin B12 Level 781 pg/mL Normal 2 Folate 9.2 NG/ML Normal 3 Complete Blood Count 01/30/2021 [facility] Purchasing Engineer: Dr Jarett Ocasio [place] [id number] [phone] WBC 3.9 x10*3/UL Low 4.1 - 10.9 4 RBC 4.52 x10*6/UL 4.20 - 6.30 Hemoglobin [...] 2.0 - 7.8 Comprehensive Chem Profile 01/30/2021 [facility], Purchasing Engineer: [place] [address] [phone] Glucose 79 mg/dL 74 - 99 5 BUN 25 mg/dL High 7 - 18 [...] mL/min >60 GFR >= 60 mL/min >60 6 Laboratory test finding 01/30/2021 [facility], Purchasing Engineer: [place] [address] [phone] Thyroid Stimulating Hormone 1.91 uIU/mL 0.3 6 - 3.74 Ua Dipstick Only 01/30/2021 [facility] Purchasing Engineer: Dr Jarett Ocasio [place] [id number] [phone] Urine Color YELLOW Yellow Urine Appearance SL. HAZY Abnormal Clear Urine PH 5.0 units 5.0 - 9.0 Urine Specific [place] 1.015 1.005 - 1.030 Urine Leukocytes MODERATE Abnormal Negative Urine Blood MODERATE Abnormal Negative Urine Protein 1+ Abnormal Negative -Trace Urine Glucose NEGATIVE mg/dL Negative Urine Nitrite NEGATIVE Negative Urine Ketone NEGATIVE mg/dL Negative Urine Bilirubin NEGATIVE Negative Urine Urobilinogen 0.2 mg/dL 0.2 - 1.0 1 started macrobid - sent to [facility] - Nitrate positive, renal function normal on recent check. JW 2 VITAMIN B12 NORMAL RANGE NORMAL 247 - 911 PG/ML INDETERMINATE 211 - 246 PG/ML DEFICIENT LESS THAN 211 PG/ML 3 FOLATE NORMAL RANGE NORMAL GREATER THAN 5.4 NG/ML INDETERMINATE 3.4-5.4 NG/ML DEFICIENT LESS THAN 3.4 NG/ML 4 attempted to reach her (see triage), has appt but is to get records from [place] since most of year there. 5 100-125 mg/dL PRE-DIABET ES/FASTING >126 mg/dL DIABETES/FASTING 6 CHRONIC KIDNEY DISEASE STAGI NG PER NKF STAGE I & II GFR >= 60 NORMAL TO MILDLY DECREASED STAGE III GFR 30-59 MODERATELY DECREASED STAGE IV GFR 15-29 SEVERELY DECREASED STAGE V GFR <15 VERY LITTLE GFR LEFT ESRD GFR <15 ON PET WALKER Procedures Date Code Description Status 07/27/2016 [id number] Bone Mineral Density Test Comple melly 06/14/2012 [id number] Mammogram Completed Medical Devices Description No Information [...] No new symptoms. She follows up with loader malt house at [place].4. Hypertensive chronic kidney disease: Stable. We will monitor.5. Chronic kidney disease: Stable. We will monitor.6. Nonrheumatic aortic valve disorders: No new symptoms at present. We will monitor.7. Insomnia: Not sleeping well. Zoloft does not work. Prescribed Trazodone. We will monitor.8. Pain in left leg: Improved. Follows with doctor at [place]. We will monitor.Ongoing cares: I am going to see her again in 5 months with comprehensive chem profile, lipid profile. If she has new problems or issues sooner, she will let us know. Functional Status Description No Information Available Mental Status Description No Information Available Referrals Refer to Reason for Referral Status Appt Date [facility] CONSULT FOR RECURRENT UTI'S Patient No tified 03/27/2021 [id number], [place] [address] [phone]
--- OUTSIDE RECORDS SUMMARY | 2021-05-01 17:32 | CCD | Continuity of Care Document ---
Author Author Lab Schedule, [facility] Unknown Address [address] [address] Phone Unavailable Care Team Providers Care Belling Machine Operator Name Role Phone Renard Abdi MD AUTM [phone] Problems Active Problems Provider Date Osteoarthritis Onset: [...] take as directed. as needed 29.7ml Renard aecvedo M.D. 03/15/2013 Lisinopril 10mg Tablets one pill by mouth daily 90tabs Renard Abdi M.D. Medications Administered in Office Medication SIG Qnty Indications Ordering Provider Date Administration Of Flu Vaccine Inj ection Renard Abdi M.D. 04/21/2020 Immunizations CPT Code Status Date Vaccine Lot # [id number] Given 04/21/2020 Influenza Vaccin e Quadrivalent Preser/Antibiotic Free Im Use [id number] 06995 Given 07/20/2010 Zoster Vaccine 35995 Given 07/22/2008 Adacel- Tetanus Diphtheria P ertussis (Age64 & Under) 95880 Refused 12/08/2017 Pneumovax 23 88826 Refused 12/08/2017 Prevnar 13 55030 Refused 04/25/2013 Influenza Virus Vaccine 93415 Refused 04/11/2012 Influenza Virus Vaccine 30136 Refused 04/17/2008 Influenza Virus Vaccine Vital Signs [...] Range Note Total Iron Binding Capacit 01/30/2021 [facility] [address] [place] [address] [phone] Iron (Fe) 34 g/dL Low 50-170 Total Iron Binding Capacity 498 g/dL High 250-450 Percent Saturation 6.8 % Low 13.2-45.0 Laboratory test finding 01/30/2021 [facility] [address] [place] [address] [phone] Ferritin 8 NG/ML Normal 8-252 Vitamin B12 & Folate 01/30/2021 [facility] enter [address] [place] [address] [phone] Vitamin B12 Level 781 pg/mL Normal 1 Folate 9.2 NG/ML Normal 2 Complete Blood Count 01/30/2021 [facility] Teacher Physically Impaired: [place] [address] [phone] WBC 3.9 x10*3/UL Low 4.1 - 10.9 [...] 2.0 - 7.8 Comprehensive Chem Profile 01/30/2021 [facility] Teacher Physically Impaired: Dr [place] [address] [phone] Glucose 79 mg/dL 74 - 99 3 [...] mL/min >60 4 Laboratory test finding 01/30/2021 [facility], Teacher Physically Impaired: Dr J[place] [address] [phone] Thyroid Stimulating Hormone 1.91 uIU/mL 0.3 6 - 3.74 Ua Dipstick Only 01/30/2021 [facility] , Teacher Physically Impaired: [place] [address] [phone] Urine Color YELLOW Yellow Urine Appearance SL. HAZY Abnormal Clear Urine PH 5.0 units 5.0 - 9.0 Urine Specific [place] 1.015 1.005 - 1.030 Urine Leukocytes MODERATE [...] LITTLE GFR LEFT ESRD GFR <15 ON COMMERCIAL LEASE ADMINISTRATOR Procedures Date Code Description Status 07/27/2016 [id number] Bone Mineral Density Test Comple melly 06/14/2012 [id number] Mammogram Completed Medical Devices Description No Information [...] 1:00 pm - Renard Abdi M.D. at [facility] 04/21/2020 - Renard Abdi M.D.* [...] No new symptoms. She follows up with animal cytologist at [place].4. Hypertensive chronic kidney disease: Stable. We will monitor.5. Chronic kidney disease: Stable. We will monitor.6. Nonrheumatic aortic valve disorders: No new symptoms at present. We will monitor.7. Insomnia: Not sleeping well. Zoloft does not work. Prescribed Trazodone. We will monitor.8. Pain in left leg: Improved. Follows with doctor at [place]. We will monitor.Ongoing cares: I am going to see her again in 5 months with comprehensive chem profile, lipid profile. If she has new problems or issues sooner, she will let us know. Functional Status Description No Information Available Mental Status Description No Information Available Referrals Refer to Reason for Referral Status Appt Date [facility] CONSULT FOR RECURRENT UTI'S Patient No tified 03/27/2021 [id number], [place] [address] [phone]
--- OUTSIDE RECORDS SUMMARY | 2021-05-01 17:32 | CCD | Continuity of Care Document ---
Author Author Lab Schedule, [facility] Unknown Address [address] [address] Phone Unavailable Care Team Providers Care Chiller Hand Name Role Phone Renard Abdi MD AUTM [phone] Problems Active Problems Provider Date Osteoarthritis Onset: [...] SIG Qnty Indications Ordering Provide r Date Hydrocodone Polistirex/Chlorpheniramine Polistirex 10- 8mg/5ML Suer 1 [...] 1000mcg Tablets 1 by mouth every day 90tabs Anahi PearlD. 02/02/2019 Celebrex 200mg Capsules 1 by mouth every day neeraj Abdi M.D. 03/03/2018 Ventolin HFA 108(90Base) mcg/Act A erosol 2 puffs every 4 hours as needed for shortness of breath 3units Dinesh Xiao, [place] [employer]OSS 05/03/2017 Multivitamins Capsules 1 by mouth every day 30dario Abdi M.D. 12/08/2015 Aspir-[address] 1 by mouth every day Renard Abdi M.D. 05/22/2015 Flonase Allergy Relief 50mcg/Act Suspension take as directed. as needed 29.7ml Renard acevedo M.D. 03/15/2013 Lisinopril 10mg Tablets one pill by mouth daily modesta Abdi M.D. Amoxicillin 500mg Capsules two times a day for 7 days Unknown Medications Administered in Office Medication SIG Qnty Indications Ordering Provider Date Administration Of Flu Vaccine Inj ection Renard Abdi M.D. 04/21/2020 Immunizations CPT Code Status Date Vaccine Lot # [id number] Given 04/21/2020 Influenza Vaccin e Quadrivalent Preser/Antibiotic Free Im Use [id number] Given 07/20/2010 Zoster Vaccine 73713 Given 07/22/2008 Adacel- Tetanus Diphtheria P ertussis [id number] Refused 12/08/2017 Pneumovax 23 [id number] Refused 12/08/2017 Prevnar 13 11205 Refused 04/25/2013 Influenza Virus Vaccine 71361 Refused 04/11/2012 Influenza Virus Vaccine [id number] Refused 04/17/2008 Influenza Virus Vaccine Vital Signs [...] Range Note Total Iron Binding Capacit 01/30/2021 [facility] [address] [place] [address] [phone] Iron (Fe) 34 g/dL Low 50-170 Total Iron Binding Capacity 498 g/dL High 250-450 Percent Saturation 6.8 % Low 13.2-45.0 Laboratory test finding 01/30/2021 [facility] [address], [place] [id number] [phone] Ferritin 8 NG/ML Normal 8-252 Vitamin B12 & Folate 01/30/2021 [facility] C enter [address] [place] [address] [phone] Vitamin B12 Level 781 pg/mL Normal 1 Folate 9.2 NG/ML Normal 2 Complete Blood Count 01/30/2021 [facility] ofelia pizarro Livestock Farmer: [place] [address] [phone] WBC 3.9 x10*3/UL Low 4.1 - 10.9 [...] 2.0 - 7.8 Comprehensive Chem Profile 01/30/2021 [facility] Livestock Farmer: [place] [address] [phone] Glucose 79 mg/dL 74 - 99 4 [...] mL/min >60 5 Laboratory test finding 01/30/2021 [facility] [employer] [facility], Livestock Farmer: [place] [address] [phone] Thyroid Stimulating Hormone 1.91 uIU/mL 0.3 6 - 3.74 Ua Dipstick Only 01/30/2021 [facility] , Livestock Farmer: [place] [address] [phone] Urine Color YELLOW Yellow Urine Appearance SL. HAZY Abnormal Clear Urine PH 5.0 units 5.0 - 9.0 Urine Specific [place] 1.015 1.005 - 1.030 Urine Leukocytes MODERATE [...] appt but [place] to get records from [place] since most of year there. 4 100-125 mg/dL PRE-DIABET ES/FASTING >126 mg/dL DIABETES/FASTING 5 CHRONIC KIDNEY DISEASE STAGI NG PER NKF STAGE I & II GFR >= 60 NORMAL TO MILDLY DECREASED STAGE III GFR 30-59 MODERATELY DECREASED STAGE IV GFR 15-29 SEVERELY DECREASED STAGE V GFR <15 VERY LITTLE GFR LEFT ESRD GFR <15 ON STAIN SPRAYER Procedures Date Code Description Status 07/27/2016 [id number] Bone Mineral Density Test Comple melly 06/14/2012 [id number] Mammogram Completed Medical Devices Description No Information [...] No new symptoms. She follows up with ball machine operator at [place].4. Hypertensive chronic kidney disease: Stable. We will monitor.5. Chronic kidney disease: Stable. We will monitor.6. Nonrheumatic aortic valve disorders: No new symptoms at present. We will monitor.7. Insomnia: Not sleeping well. Zoloft does not work. Prescribed Trazodone. We will monitor.8. Pain in left leg: Improved. Follows with doctor at [place]. We will monitor.Ongoing cares: I am going to see her again in 5 months with comprehensive chem profile, lipid profile. If she has new problems or issues sooner, she will let us know. Functional Status Description No Information Available Mental Status Description No Information Available Referrals Refer to Reason for Referral Status Appt Date [facility] CONSULT FOR RECURRENT UTI'S Patient No tified 03/27/2021 [id number] [address], [facility] [place] [address] [phone]
--- OUTSIDE RECORDS SUMMARY | 2021-05-01 17:32 | CCD | Continuity of Care Document ---
Author Author [facility] Unknown Address [address] [place] [address], [address] [place] [address] Phone [phone] Care Team Providers [employer] Consultant Name Role Phone Renard Abdi MD [facility] [phone] Problems Active Problems Provider Date Essential hypertension CATRACHITO Gomes Onset: 02/02/2021 Social History Type Date Description Comments Sex Unknown Allergies, Adverse Reactions, Alerts Description No Known Drug Allergies Medications Active Medications SIG Qnty Indications Ordering Provide r Date Naprosyn 500mg Tablets 1 by mouth twice a day 60tabs M25.561 Mendoza Morgan MD 02/02/2021 Immunizations Description No Information Available Vital Signs Date Vital Result Comment 02/02/2021 4:11pm Body Temperature 96.9 F Height 63 inches 5'3" Weight 148.00 lb BMI (Body Mass Index) 26.2 kg/m2 Results Description No Information Available Procedures Date Code Description Status 02/02/2021 13908 Office/Outpatient New Moderate M DM 45-59 Minutes Completed 02/02/2021 08183 X-Ray Knee Complete W/Obliques & Tunnel And/Or Standing Views Completed Medical Devices Description No Information Available Encounters Type Date Location Provider Dx Diagnosis Office Visit 02/02/2021 3:15p [place] CATRACHITO Gomes M25.561 Pain in right knee M17.11 Unilateral primary osteoarth ritis, right knee Assessments Date Code Description Provider 02/02/2021 M25.561 Pain in right knee CATRACHITO García 02/02/2021 M17.11 Unilateral primary osteoarthriti s, right knee CATRACHITO Gomes Plan of Treatment Future Appointment(s):* 02/19/2021 3:00 pm - CATRACHITO Gomes at [place] 02/02/2021 - CATRACHITO Gomes* M25.561 Pain in right knee* New Medication:* Naprosyn 500 mg - 1 by mouth twice a day * Follow up:* in 2 weeks with IID * M17.11 Unilateral primary osteoarthritis, right knee Functional Status Description No Information Available Mental Status Description No Information Available Referrals Description No Information Available
--- OUTSIDE RECORDS SUMMARY | 2021-05-01 17:32 | CCD | Continuity of Care Document ---
Author Author [facility] Unknown Address [address] [place] [address] [place] [address] Phone [phone] Problems Description No Information Available Social History [...] Available Procedures Date Code Description Status 03/31/2021 68258 Office/Outpatient New Low MDM 30 -44 Minutes [...]
--- OUTSIDE RECORDS SUMMARY | 2021-05-01 17:32 | CCD | Continuity of Care Document ---
Author Author [facility] Unknown Address [address] [place] [address] [place] [address] Phone [phone] Problems Description No Information Available Social History [...] Available Procedures Date Code Description Status 03/31/2021 24933 Office/Outpatient New Low MDM 30 -44 Minutes [...]
--- OUTSIDE RECORDS SUMMARY | 2021-05-01 17:32 | CCD | Continuity of Care Document ---
Author Author [facility] Unknown Address [address] [place] [address] [place] [address] Phone [phone] Problems Description No Information Available Social History [...] Available Procedures Date Code Description Status 03/31/2021 27197 Office/Outpatient New Low MDM 30 -44 Minutes [...]
--- OUTSIDE RECORDS SUMMARY | 2021-05-01 17:33 | CCD ---
Author Author [facility] Organization [facility] Address Unknown Phone Unavailable Care Team Providers Care Outreach Manager Name Role Phone Annette, Angelica MEDICAL RADIATION TECH Unavailable Unavailable Annette, Angelica MEDICAL RADIATION TECH Unavailable Unavailable Annette, Angelica MEDICAL RADIATION TECH Unavailable Unavailable Annette, Angelica MEDICAL RADIATION TECH Unavailable Unavailable Annette, Angelica MEDICAL RADIATION TECH Unavailable Unavailable Annette, Angelica MEDICAL RADIATION TECH Unavailable Unavailable Annette, Angelica MEDICAL RADIATION TECH Unavailable Unavailable Annette, Angelica MEDICAL RADIATION TECH Unavailable Unavailable Annette, Angelica MEDICAL RADIATION TECH Unavailable Unavailable Annette, Angelica MEDICAL RADIATION TECH Unavailable Unavailable Annette, Angelica MEDICAL RADIATION TECH Unavailable Unavailable Annette, Angelica MEDICAL RADIATION TECH Unavailable Unavailable Annette, Angelica MEDICAL RADIATION TECH Unavailable Unavailable Annette, Angelica MEDICAL RADIATION TECH Unavailable Unavailable Annette, Angelica MEDICAL RADIATION TECH Unavailable Unavailable Annette, Angelica MEDICAL RADIATION TECH Unavailable Unavailable Annette, Angelica MEDICAL RADIATION TECH Unavailable Unavailable Annette, Angelica MEDICAL RADIATION TECH Unavailable Unavailable Annette, Angelica MEDICAL RADIATION TECH Unavailable Unavailable Annette, Angelica MEDICAL RADIATION TECH Unavailable Unavailable Annette, Angelica MEDICAL RADIATION TECH Unavailable Unavailable Annette, Angelica MEDICAL RADIATION TECH Unavailable Unavailable Annette, Angelica MEDICAL RADIATION TECH Unavailable Unavailable Annette, Angelica MEDICAL RADIATION TECH Unavailable Unavailable Annette, Angelica MEDICAL RADIATION TECH Unavailable Unavailable Annette, Angelica MEDICAL RADIATION TECH Unavailable Unavailable Annette, Angelica MEDICAL RADIATION TECH Unavailable Unavailable Annette, Angelica MEDICAL RADIATION TECH Unavailable Unavailable Annette, Angelica MEDICAL RADIATION TECH Unavailable Unavailable Annette, Angelica MEDICAL RADIATION TECH Unavailable Unavailable Annette, Angelica MEDICAL RADIATION TECH Unavailable Unavailable Annette, Angelica MEDICAL RADIATION TECH Unavailable Unavailable Annette, Angelica MEDICAL RADIATION TECH Unavailable Unavailable Annette, Angleica MEDICAL RADIATION TECH Unavailable Unavailable Annette, Angelica MEDICAL RADIATION TECH Unavailable Unavailable Trinidad F Renard JARRELL Unavailable Unavailable Trinidad F Renard JARRELL Unavailable Unavailable Trinidad F Renard JARRELL Unavailable Unavailable White F Renard JARRELL Unavailable Unavailable White F Renard JARRELL Unavailable Unavailable White F Renard JARRELL Unavailable Unavailable White F Renard JARRELL Unavailable Unavailable White F Renard JARRELL Unavailable Unavailable Trinidad F Renard JARRELL Unavailable Unavailable White F Renard JARRELL Unavailable Unavailable White F Renard JARRELL Unavailable Unavailable White F Renard JARRELL Unavailable Unavailable White F Renard JARRELL Unavailable Unavailable White F Renard JARRELL Unavailable Unavailable White F Renard JARRELL Unavailable Unavailable Trinidad F Renard JARRELL Unavailable Unavailable Trinidad F Renard JARRELL Unavailable Unavailable Trinidad F Renard JARRELL Unavailable Unavailable Trinidad F Renard JARRELL Unavailable Unavailable White F Renard JARRELL Unavailable Unavailable Trinidad F Renard JARRELL Unavailable Unavailable Trinidad F Renard JARRELL Unavailable Unavailable Trinidad F Renard JARRELL Unavailable Unavailable Trinidad F Renard JARRELL Unavailable Unavailable Trinidad F Renard JARRELL Unavailable Unavailable Trinidad F Renard AJRRELL Unavailable Unavailable Trinidad F Renard JARRELL Unavailable Unavailable Trinidad F Renard JARRELL Unavailable Unavailable Trinidad F Renard JARRELL Unavailable Unavailable Trinidad F Renard JARRELL Unavailable Unavailable Trinidad F Renard JARRELL Unavailable Unavailable Trinidad F Renard JARRELL Unavailable Unavailable Gosia Abdi MD Unavailable Unavailable Gosia Abdi MD Unavailable Unavailable Trinidad F Renard JARRELL Unavailable Unavailable Trinidad F Renard JARRELL Unavailable Unavailable Trinidad F Renard JARRELL Unavailable Unavailable Trinidad F Renard JARRELL Unavailable Unavailable Gosia Abdi MD Unavailable Unavailable Gosia Abdi MD Unavailable Unavailable Gosia Abdi MD Unavailable Unavailable Gosia Abdi MD Unavailable Unavailable Gosia Abdi MD Unavailable Unavailable Trinidad F Renard JARRELL Unavailable Unavailable Trinidad F Renard JARRELL Unavailable Unavailable Trinidad F Renard JARRELL Unavailable Unavailable Trinidad F Renard JARRELL Unavailable Unavailable Trinidad F Renard JARRELL Unavailable Unavailable Trinidad F Renard JARRELL Unavailable Unavailable Trinidad F Renard JARRELL Unavailable Unavailable Trinidad F Renard JARRELL Unavailable Unavailable Trinidad F Renard JARRELL Unavailable Unavailable Trinidad F Renard JARRELL Unavailable Unavailable Trinidad F Renard JARRELL Unavailable Unavailable Trinidad F Renard JARRELL Unavailable Unavailable Trinidad F Renard JARRELL Unavailable Unavailable Trinidad F Renard JARRELL Unavailable Unavailable Trinidad F Renard JARRELL Unavailable Unavailable WhiteGosia MD Unavailable Unavailable Gosia Abdi MD Unavailable Unavailable Gosia Abdi MD Unavailable Unavailable Gosia Abdi MD Unavailable Unavailable Gosia Abdi MD Unavailable Unavailable Gosia Abdi MD Unavailable Unavailable Gosia Abdi MD Unavailable Unavailable Gosia Abdi MD Unavailable Unavailable Gosia Abdi MD Unavailable Unavailable Gosia Abdi MD Unavailable Unavailable Gosia Abdi MD Unavailable Unavailable Gosia Abdi MD Unavailable Unavailable Gosia Abdi MD Unavailable Unavailable Gosia Abdi MD Unavailable Unavailable Gosia Abdi MD Unavailable Unavailable Gosia Abdi MD Unavailable Unavailable Gosia Abdi MD Unavailable Unavailable Gosia Abdi MD Unavailable Unavailable Gosia Abdi MD Unavailable Unavailable LETTIERE, A KUNAL PA Unavailable Unavailable LETTIERE, A KUNAL PA Unavailable Unavailable LETTIERE, A KUNAL PA Unavailable Unavailable LETTIERE, A KUNAL PA Unavailable Unavailable LETTIERE, A KUNAL PA Unavailable Unavailable LETTIERE, A KUNAL PA Unavailable Unavailable LETTIERE, A KUNAL PA Unavailable Unavailable LETTIERE, A KUNAL PA Unavailable Unavailable LETTIERE, A KUNAL PA Unavailable Unavailable LETTIERE, A KUNAL PA Unavailable Unavailable LETTIERE, A KUNAL PA Unavailable Unavailable LETTIERE, A KUNAL PA Unavailable Unavailable LETTIERE, A KUNAL PA Unavailable Unavailable LETTIERE, A KUNAL PA Unavailable Unavailable LETTIERE, A KUNAL PA Unavailable Unavailable LETTIERE, A KUNAL PA Unavailable Unavailable LETTIERE, A KUNAL PA Unavailable Unavailable LETTIERE, A KUNAL PA Unavailable Unavailable LETTIERE, A KUNAL PA Unavailable Unavailable LETTIERE, A KUNAL PA Unavailable Unavailable LETTIERE, A KUNAL PA Unavailable Unavailable LETTIERE, A KUNAL PA Unavailable Unavailable LETTIERE, A KUNAL PA Unavailable Unavailable LETTIERE, A KUNAL PA Unavailable Unavailable LETTIERE, A KUNAL PA Unavailable Unavailable LETTIERE, A KUNAL PA Unavailable Unavailable LETTIERE, A KUNAL PA Unavailable Unavailable LETTIERE, A KUNAL PA Unavailable Unavailable LETTIERE, A KUNAL PA Unavailable Unavailable LETTIERE, A KUNAL PA Unavailable Unavailable LETTIERE, A KUNAL PA Unavailable Unavailable PICKERAL JR, J NED PA-C Unavailable Unavailable PICKERAL JR, J NED PA-C Unavailable Unavailable PICKERAL JR, J NED PA-C Unavailable Unavailable PICKERAL JR, J NED PA-C Unavailable Unavailable PICKERAL JR, J NED PA-C Unavailable Unavailable PICKERAL JR, J NED PA-C Unavailable Unavailable PICKERAL JR, J NED PA-C Unavailable Unavailable PICKERAL JR, J NED PA-C Unavailable Unavailable PICKERAL JR, J NED PA-C Unavailable Unavailable PICKERAL JR, J NED PA-C Unavailable Unavailable PICKERAL JR, J NED PA-C Unavailable Unavailable PICKERAL JR, J NED PA-C Unavailable Unavailable PICKERAL JR, J NED PA-C Unavailable Unavailable PICKERAL JR, J NED PA-C Unavailable Unavailable PICKERAL JR, J NED PA-C Unavailable Unavailable PICKERAL JR, J NED PA-C Unavailable Unavailable PICKERAL JR, J NED PA-C Unavailable Unavailable PICKERAL JR, J NED PA-C Unavailable Unavailable PICKERAL JR, J NED PA-C Unavailable Unavailable PICKERAL JR, J NED PA-C Unavailable Unavailable PICKERAL JR, J NED PA-C Unavailable Unavailable PICKERAL JR, J NED PA-C Unavailable Unavailable PICKERAL JR, J NED PA-C Unavailable Unavailable PICKERAL JR, J NED PA-C Unavailable Unavailable PICKERAL JR, J NED PA-C Unavailable Unavailable PICKERAL JR, J NED PA-C Unavailable Unavailable PICKERAL JR, J NED PA-C Unavailable Unavailable DRAZEK, I GISSELL PA Unavailable Unavailable DRAZEK, I GISSELL PA Unavailable Unavailable DRAZEK, I GISSELL PA Unavailable Unavailable DRAZEK, I GISSELL PA Unavailable Unavailable DRAZEK, I GISSELL PA Unavailable Unavailable DRAZEK, I GISSELL PA Unavailable Unavailable DRAZEK, I GISSELL PA Unavailable Unavailable DRAZEK, I GISSELL PA Unavailable Unavailable DRAZEK, I GISSELL PA Unavailable Unavailable DRAZEK, I GISSELL PA Unavailable Unavailable DRAZEK, I GISSELL PA Unavailable Unavailable DRAZEK, I GISSELL PA Unavailable Unavailable DRAZEK, I GISSELL PA Unavailable Unavailable DRAZEK, I GISSELL PA Unavailable Unavailable DRAZEK, I GISSELL PA Unavailable Unavailable DRAZEK, I GISSELL PA Unavailable Unavailable DRAZEK, I GISSELL PA Unavailable Unavailable DRAZEK, I GISSELL PA Unavailable Unavailable DRAZEK, I GISSELL PA Unavailable Unavailable DRAZEK, I GISSELL PA Unavailable Unavailable DRAZEK, I GISSELL PA Unavailable Unavailable DRAZEK, I GISSELL PA Unavailable Unavailable DRAZEK, I GISSELL PA Unavailable Unavailable DRAZEK, I GISSELL PA Unavailable Unavailable DRAZEK, I GISSELL PA Unavailable Unavailable DRAZEK, I GISSELL PA Unavailable Unavailable DRAZEK, I GISSELL PA Unavailable Unavailable DRAZEK, I GISSELL PA Unavailable Unavailable DRAZEK, I GISSELL PA Unavailable Unavailable DRAZEK, I GISSELL PA Unavailable Unavailable Re-disclosure Warning The records that you are about to access may contain information from federally-assisted alcohol or drug abuse programs. If such information is present, then the following federally mandated warning applies: This information has been disclosed to you from records protected by federal confidentiality rules (42 CFR part 2). The federal rules prohibit you from making any further disclosure of this information unless further disclosure is expressly permitted by the written consent of the person to whom it pertains or as otherwise permitted by 42 CFR part 2. A general authorization for the release of medical or other information is NOT sufficient for this purpose. The Federal rules restrict any use of the information to criminally investigate or prosecute any alcohol or drug abuse patient.The records that you are about to access may contain highly sensitive health information, the redisclosure of which is protected by Article 27-F of the [facility] Public Health law. If you continue you may have access to information: Regarding HIV / AIDS; Provided by facilities licensed or operated by the [facility] Office of Mental Health; or Provided by the [facility] Office for People With Developmental Disabilities. If such information is present, then the following [facility] mandated warning applies: This information has been disclosed to you from confidential records which are protected by state law. State law prohibits you from making any further disclosure of this information without the specific written consent of the person to whom it pertains, or as otherwise permitted by law. Any unauthorized further disclosure in violation of state law may result in a fine or long-term sentence or both. A general authorization for the release of medical or other information is NOT sufficient authorization for further disc losure. Family History Family Member Name Family Member Gender Family Member Status Date o f Status Description Data Source(s) Unknown Female Problem [facility] ([facility]) Unknown Unknown Encounters Encounter Providers Location Date Indications Data Source(s ) Outpatient Attender: KUNAL ryan 03/31/2021 01:15:00 PM EDT [facility] ([facility] Outpatient Attender: GISSELL WINSTON Physical [facility] 02/02/2021 0 3:15:00 PM EDT [facility] ([facility] Outpatient Attender: NED Weber 1 07/22/2019 01:00:00 PM EST [facility] ([facility] ) Outpatient Attender: Angelica Weber 01:40:00 PM EDT [facility] ([facility] ) Outpatient Attender: Renard Weber 04/21 01:30:00 PM EDT [facility] ([facility] ) Outpatient Attender: NED Weber 0 04/14/2020 03:00:00 PM EDT [facility] ([facility] ) Outpatient Attender: Renard Weber 03/05 11:30:00 AM EDT [facility] ([facility] ) Immunizations Vaccine Date Status Description Data Source(s) COVID-19 VACC, MRNA(PFIZER)/PF 01/10/2021 12:00:00 AM EDT completed [facility] COVID-19 VACCINE Pfizer 01/09/2021 12:00:00 AM EDT completed [facility] Vaccine Series Complete: NOThis Data was Submitted to [facility] Via [facility]. Influenza, injectable, MDCK, preservative free, destiny valent 04/21/2020 01:37:00 PM EDT completed [facility] Medications Medication Brand Name Start Date Product Form Dose Route Admi nistrative Instructions Pharmacy Instructions Status Indications Reaction Description Data Source(s) 50 mg 04/28/2021 12:00:00 AM EDT tablet 30 TAKE ONE TABLET BY MOUTH THREE TIMES A DAY NEEDED FOR SEVERE PAIN MAXIMUM DAILY DOSE = 3 TAKE ONE TABLET BY MOUTH THREE TIMES A DAY NEEDED FOR SEVERE PAIN MAXIMUM DAILY DOSE = 3 SOLD: 04/28/2021 [facility] 4 mg 04/28/2021 12:00:00 AM EDT tablets,dose pack 21 USE DIRECTED USE DIRECTED SOLD: 04/28/2021 [facility] 250 mg 04/23/2021 12:00:00 AM EDT tablet 7 TAKE ONE TABLET BY MOUTH EVERY DAY FOR 7 DAYS TAKE ONE TABLET BY MOUTH EVERY DAY FOR 7 DAYS SOLD: 04/26/2021 [facility] Levofloxacin 250 MG Oral Tablet Levofloxacin 04/23/2021 12:00:00 AM E DT ORAL active [facility] ([facility]) NITROFURANTOIN, MACROCRYSTALS 25 MG / Ni trofurantoin, Monohydrate 75 MG Oral Capsule [Macrobid] Macrobid 04/20/2021 12:00:00 AM EDT ORAL completed [facility] ([facility] ) NITROFURANTOIN, MACROCRYSTALS 25 MG / Ni trofurantoin, Monohydrate 75 MG Oral Capsule 100 mg NITROFURANTOIN MONOHYD/M-CRYST 04/20/2021 12:00:00 AM EDT ca psule 14 TAKE ONE CAPSULE BY MOUTH TWICE A DAY WITH FOOD FOR 7 DAYS TAKE ONE CAPSULE BY MOUTH TWICE A DAY WITH FOOD FOR 7 DAYS SOLD: 04/20/2021 [facility] 12 HR CHLORPHENIRAMINE POLISTIREX 1.6 MG /ML / HYDROCODONE POLISTIREX 2 MG/ML Extended Release Suspension 10-8 mg/5 mL HYDROCODONE/CHLORPHEN P-STIREX 04/03/2021 12:00:00 AM EDT suspension,extended rel 12 hr 50 TAKE 5ML BY MOUTH TWO TIMES A DAY NEEDED FOR COUGH MAXIMUM DAILY DOSE = 10ML TAKE 5ML BY MOUTH TWO TIMES A DAY NEEDED FOR COUGH MAXIMUM DAILY DOSE = 10ML SOLD: 04/04/2021 [facility] 12 HR CHLORPHENIRAMINE POLISTIREX 1.6 MG /ML / HYDROCODONE POLISTIREX 2 MG/ML Extended Release Suspension Hydrocodone Polistirex/Chlorpheniramine Polistirex 04/03/2021 12:00:00 AM EDT active [facility] ([facility]) Amoxicillin 875 MG Oral Tablet Amoxicillin 03/31/2021 12:00:00 AM EDT active [facility] ([facility]) No Active Medications 03/31/2021 12:00:00 AM EDT completed [facility] ([facility]) 875 mg 03/31/2021 12:00:00 AM EDT tablet 20 TAKE ONE TABLET BY MOUTH EVERY 12 HOURS FOR 10 DAYS TAKE ONE TABLET BY MOUTH EVERY 12 HOURS FOR 10 DAYS SO LD: 03/31/2021 [facility] Naproxen 500 MG Oral Tablet [Naprosyn] Naprosyn 02/02/2021 12:00:00 AM EDT ORAL active [facility] ([facility]) 500 mg 02/02/2021 12:00:00 AM EDT tablet 60 TAKE ONE TABLET BY MOUTH TWICE A DAY TAKE ONE TABLET BY MOUTH TWICE A DAY SOLD: 02/02/2021 [facility] Cephalexin 250 MG Oral Capsule [Keflex] Keflex 05/23/2020 12:00:0 0 AM EST ORAL active [facility] ([facility]) 250 mg 05/23/2020 12:00:00 AM EST capsule 10 TAKE ONE CAPSULE BY MOUTH TWICE A DAY FOR 5 DAYS TAKE ONE CAPSULE BY MOUTH TWICE A DAY FOR 5 DAYS SOLD: 05/23/2020 [facility] 20 mg 05/22/2020 12:00:00 AM EST tablet 7 TAKE ONE TABLET BY MOUTH EVERY MORNING FOR 7 DAYS TAKE ONE TABLET BY MOUTH EVERY MORNING FOR 7 DAYS SOLD : 05/23/2020 [facility] Prednisone 20 MG Oral Tablet Prednisone 05/22/2020 12:00:00 AM EST ORAL active [facility] ([facility]) NITROFURANTOIN, MACROCRYSTALS 25 MG / Ni trofurantoin, Monohydrate 75 MG Oral Capsule Nitrofurantoin Monohyd Macro 05/16/2020 12:00:00 AM EDT ORAL completed [facility] ([facility]) 100 mg 05/16/2020 12:00:00 AM EDT capsule 14 TAKE ONE CAPSULE BY MOUTH TWICE A DAY FOR 7 DAYS TAKE ONE CAPSULE BY MOUTH TWICE A DAY FOR 7 DAYS SOLD: 05/16/2020 [facility] 50 mg 04/22/2020 12:00:00 AM EDT tablet 30 TAKE 1/2 TABLET BY MOUTH AT BEDTIME TAKE 1/2 TABLET BY MOUTH AT BEDTIME SOLD: 04/29/2020 [facility] 50 mg 04/22/2020 12:00:00 AM EDT tablet 30 TAKE 1/2 TABLET BY MOUTH AT BEDTIME TAKE 1/2 TABLET BY MOUTH AT BEDTIME SOLD: 07/07/2020 [facility] Administration Of Flu Vaccine 04/21/2020 12:00:00 AM EDT completed [facility]) Medication administered onsite 10-8 mg/5 mL 04/21/2020 12:00:00 AM EDT suspension,extended rel 12 hr 115 TAKE 2 & 1/2 - 5 ML BY MOUTH TWO TIMES A DAY NEEDED FOR COUGH MAXIMUM DAILY DOSE = 10 ML TAKE 2 & 1/2 - 5 ML BY MOUTH TWO TIMES A DAY NEEDED FOR COUGH MAXIMUM DAILY DOSE = 10 ML SOLD: 04/29/2020 [facility] 12 HR CHLORPHENIRAMINE POLISTIREX 1.6 MG /ML / HYDROCODONE POLISTIREX 2 MG/ML Extended Release Suspension [Tussionex] Tussionex Pennkinetic Extended Release 04/21/2020 12:00:00 AM EDT active [facility] ([facility]) Trazodone Hydrochloride 50 MG Oral Tablet Trazodone HCL 04/21/2020 12:00:00 AM EDT ORAL active [facility] ([facility]) 12 HR CHLORPHENIRAMINE POLISTIREX 1.6 MG /ML / HYDROCODONE POLISTIREX 2 MG/ML Extended Release Suspension [Tussionex] Tussionex Pennkinetic Extended Release 04/21/2020 12:00:00 AM EDT completed [facility] ([facility]) Prednisone 10 MG Oral Tablet Prednisone 04/14/2020 12:00:00 AM EDT ORAL completed [facility] ([facility]) 10 mg 04/14/2020 12:00:00 AM EDT tablet 31 TAKE FOUR TABLETS BY MOUTH EVERY DAY FOR 3 DAYS THEN THREE DAILY FOR 3 DAYS THEN TWO DAILY FOR 3 DAYS THEN ONE DAILY FOR 3 DAYS TAKE FOUR TABLETS BY MOUTH EVERY DAY FOR 3 DAYS THEN THREE DAILY FOR 3 DAYS THEN TWO DAILY FOR 3 DAYS THEN ONE DAILY FOR 3 DAYS SOLD: 04/14/2020 [facility] Cephalexin 250 MG Oral Capsule Cephalexin 04/14/2020 12:00:00 AM EDT ORAL completed [facility] ([facility]) 24 HR tolterodine tartrate 4 MG Extended Release Oral Capsule [Detrol] Detrol LA 04/14/2020 12:00:00 AM EDT ORAL active [facility] ([facility]) 250 mg 04/14/2020 12:00:00 AM EDT capsule 10 TAKE ONE CAPSULE BY MOUTH TWICE A DAY FOR 5 DAYS TAKE ONE CAPSULE BY MOUTH TWICE A DAY FOR 5 DAYS SOLD: 04/14/2020 [facility] 50 mg 03/05/2020 12:00:00 AM EDT tablet 60 TAKE ONE TABLET BY MOUTH TWICE A DAY NEEDED FOR PAIN MAXIMUM DAILY DOSE = TWO TABLETS TAKE ONE TABLET BY MOUTH TWICE A DAY NEEDED FOR PAIN MAXIMUM DAILY DOSE = TWO TABLETS SOLD: 03/06/2020 [facility] Cholecalciferol 1000 UNT Oral Capsule Vitamin D-3 03/05/2020 12:00 :00 AM EDT ORAL active [facility] ([facility]) Codeine Phosphate 2 MG/ML / Guaifenesin 20 MG/ML Oral Solution Guaifenesin-Codeine 02/11/2020 12:00:00 AM EDT ORAL com pleted [facility] ([facility]) Prednisone 10 MG Oral Tablet Prednisone 02/11/2020 12:00:00 AM EDT ORAL completed [facility] ([facility]) Ciprofloxacin 500 MG Oral Tablet Ciprofloxacin HCL 12/31/2019 12:00 :00 AM EDT ORAL completed [facility] ([facility]) Ciprofloxacin 250 MG Oral Tablet [Cipro] Cipro 12/17/2019 12:00:00 AM EDT completed [facility] ([facility]) Insurance Providers Payer name Policy type / Coverage type Policy ID Covered alliance party ID Covered alliance party's relationship to potter Policy Potter Plan Information Medicare Natl Govt Servic Medicare Primary [id number] Self [id number] Medicare Natl Govt Servic Medicare Primary [id number] Self [id number] Medicare Natl Govt Servic Medicare Primary [id number] Self [id number] Medicare Natl Govt Servic Medicare Primary [id number] Self Medicare Natl Govt Servic Medicare Primary [id number] Self [id number] Medicare Natl Govt Servic Medicare Primary [id number] Self [id number] Medicare Natl Govt Servic Medicare Primary [id number] Self [id number] MEDICARE [id number] SP [id number] A [facility] [id number] Self [id number] [place] 200/700 [id number] [facility] [id number] Self [id number] O UNAVAILABLE UNAVAILA BLE BS [facility] [id number] Self [id number] [facility] [id number] Self [id number] [facility] [id number] Self 20 0 BS/W/Id#Prefix/W ALL #'S Medigap Part B [id number] Self Medicare Natl Gov't Servi Medicare Primary [id number] Self MEDICARE [id number] SP [id number] [employer] [place] 200/700 [id number] SP [id number] MEDICARE C [id number] S [id number] EXCELLUS BCBS B [id number] S [id number] MEDICARE C [id number] S [id number] A [facility] [id number] Self [id number] [facility] [id number] Self [id number] Problems, Conditions, and Diagnoses Code Display Name Description Problem Type Effective Dates Data Source(s) [id number] Essential hypertension Essential hypertension Problem 02/02/2021 12:00:00 AM EDT [facility] ([facility]) Surgeries/Procedures Procedure Description Date Indications Data Source(s) OFFICE OUTPATIENT NEW 30 MINUTES 03/31/2021 12:00:00 A M EDT [facility] ([facility]) RADIOLOGIC EXAM KNEE COMPLETE 4/MORE VIEWS 02/02/2021 12:00:00 AM EDT [facility] ([facility]) OFFICE OUTPATIENT NEW 45 MINUTES 02/02/2021 12:00:00 A M EDT [facility] ([facility]) Results ID Date Data Source [id number] 04/20/2021 01:12:00 PM EDT [facility] ([facility]) Name Value Range Interpretation Code Description Data Susie rce(s) Supporting Document(s) Bacteria identified in Urine by Culture Laboratory test [facility] on Macrobid - will change to [facility] sees urology (had cx'd appt prior and saw doctors in [place] but no information). JW ID Date Data Source [id number] 04/20/2021 12:54:00 PM EDT [facility] ([facility]) Name Value Range Interpretation Code Description Data Susie rce(s) Supporting Document(s) Urine Color Laboratory test result [facility] ([facility]) started macrobid - sent to [facility] - Nit rate positive, renal function normal on recent check. Urine Appearance Laboratory test result Abnormal (applies to non-numeric results) [facility] ([facility]) started macrobid [facility] - Nit rate positive, renal function normal on recent check. Urine PH 8.0 units 5.0-9.0 [facility] - Nit [facility] positive, renal function normal on recent check. Specific gravity of Urine 1.010 1.005-1.030 [facility] ([facility]) started macrobid - [facility] - Nit rate positive, renal function normal on recent check. Urine Leukocytes Laboratory test result Abnormal (applies to non-numeric results) [facility] ([facility]) started macrobid [facility] - Nit rate positive, renal function normal on recent check. Urine Blood Laboratory test result Abnormal (applies to non-numeric results) [facility] ([facility]) started macrobid - sent to [facility] - Nit rate positive, renal function normal on recent check. Urine Protein Laboratory test result 0-0 [facility] ([facility]) started macrobid - sent to [facility] - Nit rate positive, renal function normal on recent check. Urine Nitrite Laboratory test result Abnormal (applies to non-numeric results) [facility] ([facility]) started macrobid - sent to [facility] - Nit rate positive, renal function normal on recent check. Glucose [Presence] in Urine Laboratory test result [facility] ([facility]) started macrobid - sent to [facility] - Nit rate positive, renal function normal on recent check. Urine Ketone Laboratory test result [facility] ([facility]) started macrobid - sent to [facility] - Nit rate positive, renal function normal on recent check. Bilirubin.total [Mass/volume] in Serum or Plasma Laboratory test resu lt [facility] ([facility]) started macrobid - sent to [facility] - Nit rate positive, renal function normal on recent check. Urine Urobilinogen 0.2 mg/dL 0.2-1.0 [facility] ([facility]) started macrobid - sent to [facility] - Nit rate positive, renal function normal on recent check. ID Date Data Source [id number] 03/31/2021 12:00:00 AM EDT [facility] Name Value Range Interpretation Code Description Data Susie e(s) Supporting Document(s) SARS-CoV2 Rapid Antigen Negative [facility] This lab was reported by [facility]. ID Date Data Source [id number] 01/30/2021 10:30:00 AM EDT [facility] ([facility]) Name Value Range Interpretation Code Description Data Susie rce(s) Supporting Document(s) Vitamin B12 Level 781 pg/mL [facility] ([facility]) VITAMIN B12 NORMAL RANGE NORMAL 247 - 911 PG/ML INDETERMINATE 211 - 246 PG/ML DEFICIENT LESS THAN 211 PG/ML Folate 9.2 ng/mL [facility] ([facility]) FOLATE NORMAL RANGE NORMAL GREATER THAN 5.4 NG/ML INDETERMINATE 3.4-5.4 NG/ML DEFICIENT LESS THAN 3.4 NG/ML ID Date Data Source [id number] 01/30/2021 10:30:00 AM EDT [facility] ([facility]) Name Value Range Interpretation Code Description Data Susie rce(s) Supporting Document(s) Ferritin [Mass/volume] in Serum or Plasma 8 ng/mL 8-252 [facility]) ID Date Data Source [id number] 01/30/2021 10:30:00 AM EDT [facility] ([facility]) Name Value Range Interpretation Code Description Data Susie rce(s) Supporting Document(s) Iron (Fe) 34 ug/dL 50-170 [facility] ([facility]) Percent Saturation 6.8 % 13.2-45.0 [facility] ([facility] Total Iron Binding Capacity 498 ug/dL 250-450 [facility] ([facility]) ID Date Data Source [id number] 01/30/2021 10:29:00 AM EDT [facility] ([facility]) Name Value Range Interpretation Code Description Data Susie rce(s) Supporting Document(s) Urine Color Laboratory test result [facility] ([facility]) attempted to reach her (see triage), has appt but is to get records from [place] since most of year there. Urine PH 5.0 units 5.0-9.0 [facility] ([facility]) attempted to reach her (see triage), has appt but is to get records from [place] since most of year there. Urine Appearance Laboratory test result Abnormal (applies to non-numeric results) [facility] ([facility]) attempted to reach her (see triage), [place] appt but [place] to get records [place] since most of year there. Urine Blood Laboratory test result Abnormal (applies to non-numeric results) [facility] ([facility]) attempted to reach her (see triage), [place] appt [place] most [place] there. Urine Leukocytes Laboratory test result Abnormal (applies to non-numeric results) [facility] ([facility]) attempted to reach her (see triage), has appt but is to get records from [place] since most of year there. Specific gravity of Urine 1.015 1.005-1.030 [facility] ([facility]) attempted to reach her (see triage), [place] appt but [place] most [place] year there. Glucose [Presence] in Urine Laboratory test result [facility] ([facility]) attempted to reach her (see triage), [place] appt [place] there. Urine Protein Laboratory test result 0-0 Abnormal (applies to non-numeric results) [facility] ([facility]) attempted to reach her (see triage), [place] appt but [place] most [place] there. Urine Ketone Laboratory test result [facility] ([facility]) attempted to reach her (see triage), [place] appt but [place] most [place] there. Urine Nitrite Laboratory test result [facility] ([facility]) attempted to reach her (see triage), [place] appt [place] there. Urine Urobilinogen 0.2 mg/dL 0.2-1.0 [facility] ([facility]) attempted to reach her (see triage), [place] appt [place] there. Bilirubin.total [Mass/volume] in Serum or Plasma Laboratory test resu lt [facility] ([facility]) attempted to reach her (see triage), [place] appt [place] most [place] there. ID Date Data Source [id number] 01/30/2021 10:29:00 AM EDT [facility] ([facility]) Name Value Range Interpretation Code Description Data Susie rce(s) Supporting Document(s) Thyrotropin [Units/volume] in Serum or Plasma by Detec tion limit <= 0.05 mIU/L 1.91 uIU/mL 0.36-3.74 [facility] ([facility] ) attempted to reach her (see triage), [place] appt [place] most [place] there. ID Date Data Source [id number] 01/30/2021 10:29:00 AM EDT [facility] ([facility]) Name Value Range Interpretation Code Description Data Susie rce(s) Supporting Document(s) Urea nitrogen [Mass/volume] in Serum or Plasma 25 mg/dL 7-18 [facility] ([facility]) attempted to reach her (see triage), [place] appt [place] there. Glucose [Mass/volume] in Serum or Plasma 79 mg/dL 74-99 [facility] ([facility]) attempted to reach her (see triage), [place] appt [place] there. Creatinine 0.8 mg/dL 0.6-1.3 [facility] attempted to reach her (see triage), [place] appt [place] there. Potassium [Moles/volume] in Serum or Plasma 4.2 meq/L 3.5-5.1 [facility] ([facility]) attempted to reach her (see triage), [place] appt [place]. Sodium [Moles/volume] in Serum or Plasma 142 meq/L 136-145 [facility] ([facility]) attempted to reach her (see triage), [place] appt [place]. Calcium [Mass/volume] in Serum or Plasma 9.7 mg/dL 8.5-10.1 [facility] ([facility]) attempted to reach her (see triage), [place] appt [place]. Chloride [Moles/volume] in Serum or Plasma 106 meq/L 98-107 [facility] ([facility]) attempted to reach her (see triage), [place] appt [place]. Carbon dioxide, total [Moles/volume] in Serum or Plasma 30 meq/L 21 -32 [facility] ([facility]) attempted to reach her (see triage), [place] appt [place] most [place] there. Total Bilirubin 0.5 mg/dL 0.2-1.0 [facility] ([facility]) attempted to reach her (see triage), [place] appt [place] there. Alkaline phosphatase isoenzyme [Units/volume] in Serum or Pl asma 70 mg/dL 46-116 [facility] ([facility]) attempted to reach her (see triage), [place] appt [place]. Aspartate aminotransferase [Enzymatic activity/volume] in Serum or Plasma 42 U/L 15-37 [facility] ([facility] ) attempted to reach her (see triage), [place] appt [place] there. Alanine aminotransferase [Enzymatic activity/volume] in Seru m or Plasma 48 U/L 12-78 [facility] ([facility]) attempted to reach her (see triage), [place] appt [place]. Albumin [Mass/volume] in Serum or Plasma 4.0 g/dL 3.4-5.0 [facility] ([facility]) attempted to reach her (see triage), [place] appt [place]. A/G Ratio 1.08 CALC 1.00-1.90 [facility] ([facility]) attempted to reach her (see triage), [place] appt [place]. Proteinase 3 Ab [Units/volume] in Serum 7.7 g/dL 6.4-8.2 [facility] ([facility]) attempted to reach her (see triage), [place] appt [place] there. Glomerular filtration rate/1.73 sq M pre dicted among non-blacks [Volume Rate/Area] in Serum or Plasma by Creatinine-based formula (MDRD) Laboratory test result [facility] ([facility] ) attempted to reach her (see triage), [place] appt [place] most [place] there. Glomerular filtration rate/1.73 sq M pre dicted among blacks [Volume Rate/Area] in Serum or Plasma by Creatinine-based formula (MDRD) Laboratory test result [facility] ([facility]) attempted to reach her (see triage), [place] appt but [place] most [place] there. ID Date Data Source [id number] 01/30/2021 10:29:00 AM EDT [facility] ([facility]) Name Value Range Interpretation Code Description Data Susie rce(s) Supporting Document(s) Leukocytes [#/volume] in Blood by Automated count 3.9 x10*3/UL 4.1-10 .9 [facility] ([facility]) attempted to reach her (see triage), [place] appt [place] most [place] there. Erythrocytes [#/volume] in Blood by Automated count 4.52 x10*6/UL 4.2 0-6.30 [facility] ([facility]) attempted to reach her (see triage), [place] appt [place] most [place] there. Hematocrit [Volume Fraction] of Blood by Automated count 32.3 % 3 7.0-51.0 [facility] ([facility]) attempted to reach her (see triage), [place] appt but [place] most [place] there. Hemoglobin [Mass/volume] in Blood 10.1 g/dL 12.0-18.0 [facility] ([facility]) attempted to reach her (see triage), [place] appt [place] there. MCH 22.4 pg 26.0-32.0 [facility] ([facility]) attempted to reach her (see triage), has appt but [place] most [place] year there. MCV 71.4 fL 80.0-97.0 [facility] ([facility]) attempted to reach her (see triage), [place] appt [place] most [place] there. Erythrocyte distribution width [Ratio] by Automated count 16.2 % 11.6-13.7 [facility] ([facility]) attempted to reach her (see triage), [place] appt [place]. MCHC 31.4 g/dL 31.0-38.0 [facility] ([facility]) attempted to reach her (see triage), [place] appt [place] there. Platelets [#/volume] in Blood by Automated count 254 x10*3/UL 140-440 [facility] ([facility]) attempted to reach her (see triage), [place] appt [place] most [place] year there. MPV 9.7 FL 7.8-11.0 [facility] [facility] attempted to reach her (see triage), [place] appt [place] there. Lymph % 36.3 % 10.0-58.5 [facility] attempted to reach her (see triage), [place] appt but [place] most [place] there. Mid % 8.9 % 1.7-9.3 [facility] attempted to reach her (see triage), [place] appt but [place] most [place] there. Neut % 54.8 % 37.0-92.0 [facility] attempted to reach her (see triage), [place] appt [place] there. Lymph # 1.4 x10*3/UL 0.6-4.1 [facility] ([facility]) attempted to reach her (see triage), has appt but [place] most [place] there. Mid # 0.4 x10*3/UL 0.1-0.6 [facility] ([facility]) attempted to reach her (see triage), [place] appt [place] there. Neut # 2.1 x10*3/UL 2.0-7.8 [facility] ([facility]) attempted to reach her (see triage), has appt but [place] most [place] year there. ID Date Data Source [id number] 05/22/2020 02:04:00 PM EST [facility] ([facility]) Name Value Range Interpretation Code Description Data Susie rce(s) Supporting Document(s) Bacteria identified in Urine by Culture Laboratory test result [facility] ([facility]) FULL REPORT IN LAB NOTES ([facility] and [facility] ). NO GROWTH CLINICAL SIGNIFICANCE 1 ORGANISM ID Date Data Source [id number] 05/22/2020 02:04:00 PM EST [facility] ([facility]) Name Value Range Interpretation Code Description Data Susie rce(s) Supporting Document(s) Urine Appearance Laboratory test result [facility] ([facility]) Urine Color Laboratory test result [facility] ([facility]) Urine PH 6.0 units 5.0-9.0 [facility] [facility] Urine Leukocytes Laboratory test result Abnormal (applies to non-numeric results) [facility]) Specific gravity of Urine 1.020 1.005-1.030 [facility] ([facility]) Urine Blood Laboratory test result [facility] ([facility]) Glucose [Presence] in Urine Laboratory test result [facility] ([facility]) Urine Protein Laboratory test result 0-0 Abnormal (applies to non-numeric results) [facility] Urine Ketone Laboratory test result [facility] ([facility]) Urine Urobilinogen 0.2 mg/dL 0.2-1.0 [facility] ([facility]) Urine Nitrite Laboratory test result [facility] ([facility]) Bilirubin.total [Mass/volume] in Serum or Plasma Laboratory test resu lt [facility] ([facility]) ID Date Data Source [id number] 05/16/2020 01:44:00 PM EDT [facility]) Name Value Range Interpretation Code Description Data [facility] rce(s) Supporting Document(s) Bacteria identified in Urine by Culture Laboratory test result [facility] ([facility]) FULL REPORT IN LAB NOTES ([facility] and [facility] ). SPECIMEN APPEARS CONTAMINATED ID Date Data Source [id number] 05/16/2020 01:44:00 PM EDT [facility] Name Value Range Interpretation Code Description Data [facility] rce(s) Supporting Document(s) Urine PH 6.0 units 5.0-9.0 [facility] [facility]) Urine Color Laboratory test result Abnormal (applies to non-numeric results) [facility]) Urine Appearance Laboratory test result Abnormal (applies to non-numeric results) [facility]) Specific gravity of Urine 1.025 1.005-1.030 [facility] ([facility]) Urine Blood Laboratory test result Abnormal (applies to non-numeric results) [facility] ([facility]) Urine Protein Laboratory test result 0-0 Abnormal (applies to non-numeric results) [facility] ([facility]) Urine Leukocytes Laboratory test result Abnormal (applies to non-numeric results) [facility] ([facility]) Glucose [Presence] in Urine Laboratory test result [facility] ([facility]) Urine Nitrite Laboratory test result [facility] ([facility]) Urine Ketone Laboratory test result [facility] ([facility]) Urine Urobilinogen 0.2 mg/dL 0.2-1.0 [facility] ([facility]) Bilirubin.total [Mass/volume] in Serum or Plasma Laboratory test resu lt [facility] ([facility]) ID Date Data Source [id number] 04/21/2020 01:25:00 PM EDT [facility] ([facility]) Name Value Range Interpretation Code Description Data Susie rce(s) Supporting Document(s) Triglyceride [Mass/volume] in Serum or Plasma 83 mg/dL 30-150 [facility] ([facility]) Cholesterol [Mass/volume] in Serum or Plasma 150 mg/dL 131-200 [facility] ([facility]) Cholesterol in HDL [Mass/volume] in Serum or Plasma 60 mg/dL 35-60 [facility] ([facility]) Cholesterol in LDL [Mass/volume] in Serum or Plasma by calcu lation 73 CALC 50-159 [facility] ([facility]) ID Date Data Source [id number] 04/21/2020 01:25:00 PM EDT [facility] ([facility]) Name Value Range Interpretation Code Description Data Susie rce(s) Supporting Document(s) Glucose [Mass/volume] in Serum or Plasma 179 mg/dL 74-99 [facility] ([facility]) 100-125 mg/dL PRE-DIABETES/FASTING >126 mg/dL DIABETES/FASTING Urea nitrogen [Mass/volume] in Serum or Plasma 25 mg/dL 7-18 [facility] ([facility]) Creatinine 1.0 mg/dL 0.6-1.3 [facility] Sodium [Moles/volume] in Serum or Plasma 141 meq/L 136-145 [facility] ([facility]) Potassium [Moles/volume] in Serum or Plasma 4.2 meq/L 3.5-5.1 [facility] ([facility]) Chloride [Moles/volume] in Serum or Plasma 104 meq/L 98-107 [facility] ([facility]) Carbon dioxide, total [Moles/volume] in Serum or Plasma 26 meq/L 21 -32 [facility] ([facility]) Total Bilirubin 0.4 mg/dL 0.2-1.0 [facility] ([facility]) Calcium [Mass/volume] in Serum or Plasma 9.2 mg/dL 8.5-10.1 [facility] ([facility]) Alkaline phosphatase isoenzyme [Units/volume] in Serum or Pl asma 60 mg/dL 46-116 [facility] ([facility]) Alanine aminotransferase [Enzymatic activity/volume] in Seru m or Plasma 53 U/L 12-78 [facility] ([facility]) Albumin [Mass/volume] in Serum or Plasma 3.9 g/dL 3.4-5.0 [facility] ([facility]) Aspartate aminotransferase [Enzymatic activity/volume] in Serum or Plasma 44 U/L 15-37 [facility] ([facility] ) Glomerular filtration rate/1.73 sq M pre dicted among non-blacks [Volume Rate/Area] in Serum or Plasma by Creatinine-based formula (MDRD) 54 mL/min [facility]) Proteinase 3 Ab [Units/volume] in Serum 7.7 g/dL 6.4-8.2 [facility]) A/G Ratio 1.03 CALC 1.00-1.90 [facility]) Glomerular filtration rate/1.73 sq M pre dicted among blacks [Volume Rate/Area] in Serum or Plasma by Creatinine-based formula (MDRD) Laboratory test result [facility] ([facility]) <content>CHRONIC KIDNEY DISEASE STAGING PER NKF</content>
<content></content>
<content>STAGE I & II GFR >= 60 NORMAL TO MILDLY DECREASED</content>
<content>STAGE III GFR 30-59 MODERATELY DECREASED</content>
<content>STAGE IV GFR 15-29 SEVERELY DECREASED</content>
<content>STAGE V GFR <15 VERY LITTLE GFR LEFT</content>
<content>ESRD GFR <15 ON MEDICAL ANTHROPOLOGY DIRECTOR</content>
<content></content> ID Date Data Source [id number] 04/14/2020 02:51:00 PM EDT [facility] ([facility]) Name Value Range Interpretation Code Description Data Susie rce(s) Supporting Document(s) Urine Appearance Laboratory test result Abnormal (applies to non-numeric results) [facility] ([facility]) Urine PH 7.0 units 5.0-9.0 [facility]) Urine Color Laboratory test result [facility] ([facility]) Specific gravity of Urine 1.015 1.005-1.030 [facility] ([facility]) Urine Blood Laboratory test result Abnormal (applies to non-numeric results) [facility] ([facility]) Urine Leukocytes Laboratory test result Abnormal (applies to non-numeric results) [facility] ([facility]) Urine Protein Laboratory test result 0-0 Abnormal (applies to non-numeric results) [facility] ([facility]) Glucose [Presence] in Urine Laboratory test result [facility] ([facility]) Urine Nitrite Laboratory test result [facility] ([facility]) Bilirubin.total [Mass/volume] in Serum or Plasma Laboratory test resu lt [facility] ([facility]) Urine Ketone Laboratory test result [facility] ([facility]) Urine Urobilinogen 0.2 mg/dL 0.2-1.0 [facility] ([facility]) Procedure Social History No Information Vital Signs ID Date Data Source UNK Name Value Range Interpretation Code Description Data Source(s) Body height 64 [in_i] 64 [in_i] [facility] ([facility], [facility]) 5'4" Systolic blood pressure 153 mm[Hg] 153 mm[Hg] [facility] ([facility], [facility]) Diastolic blood pressure 90 mm[Hg] 90 mm[Hg] [facility] ([facility], [facility]) Heart rate 64 /min 64 /min [facility], [facility]) Respiratory rate 6 /min 6 /min [facility] ( [facility], [facility]) Oxygen saturation in Arterial blood by Pulse oximetry 96 % 96 % [facility] ([facility] [facility]) Body temperature 98.4 [degF] 98.4 [degF] [facility] ([facility], [facility]) Body weight 145.00 [lb_av] 145.00 [lb_av] [facility] ([facility], [facility]) Body mass index (BMI) [Ratio] 24.9 kg/m2 24.9 k g/m2 [facility] ([facility], [facility]) Body temperature 96.9 [degF] 96.9 [degF] [facility] ([facility] ) Body height 63 [in_i] 63 [in_i] [facility] ([facility]) 5'3" Body weight 148.00 [lb_av] 148.00 [lb_av] [facility] ([facility]) Body mass index (BMI) [Ratio] 26.2 kg/m2 26.2 k g/m2 [facility] ([facility] ) Systolic blood pressure 140 mm[Hg] 140 mm[Hg] [facility] ([facility]) Diastolic blood pressure 70 mm[Hg] 70 mm[Hg] [facility] ([facility]) Heart rate 75 /min 75 /min [facility] ([facility]) Body height 65 [in_i] 65 [in_i] [facility] ([facility]) 5'5" Oxygen saturation in Arterial blood by Pulse oximetry 96 % 96 % [facility] ([facility]) Air Body weight 148.00 [lb_av] 148.00 [lb_av] [facility] ([facility]) Body mass index (BMI) [Ratio] 24.6 kg/m2 24.6 k g/m2 [facility] ([facility]) Body mass index (BMI) [Ratio] 24.6 kg/m2 24.6 k g/m2 [facility] ([facility]) Systolic blood pressure 142 mm[Hg] 142 mm[Hg] [facility] ([facility]) RT Arm Diastolic blood pressure 68 mm[Hg] 68 mm[Hg] [facility] ([facility]) RT Arm Heart rate 80 /min 80 /min [facility] ([facility]) Body height 65 [in_i] 65 [in_i] MEDENT ([facility]) 5'5" Body weight 148.00 [lb_av] 148.00 [lb_av] MEDEN T ([facility]) Systolic blood pressure 126 mm[Hg] 126 mm[Hg] M EDENT ([facility]) Diastolic blood pressure 770 mm[Hg] 770 mm[Hg] MEDENT ([facility]) Heart rate 78 /min 78 /min MED[facility] ([facility]) Body weight 147.00 [lb_av] 147.00 [lb_av] MEDEN T ([facility]) Body mass index (BMI) [Ratio] 24.5 kg/m2 24.5 k g/m2 MED[facility] ([facility]) Body height 65 [in_i] 65 [in_i] MEDENT ([facility]) 5'5" Heart rate 73 /min 73 /min MEDENT ([facility]) Systolic blood pressure 118 mm[Hg] 118 mm[Hg] EDENT ([facility]) Diastolic blood pressure 70 mm[Hg] 70 mm[Hg] MEDENT ([facility]) Body temperature 98.2 [degF] 98.2 [degF] [facility] ([facility]) Body height 65 [in_i] 65 [in_i] [facility] 5'5" Body mass index (BMI) [Ratio] 24.3 kg/m2 24.3 k g/m2 MEDENT ([facility]) Body weight 146.00 [lb_av] 146.00 [lb_av] MEDEN T ([facility]) Systolic blood pressure 126 mm[Hg] 126 mm[Hg] [facility] Diastolic blood pressure 72 mm[Hg] 72 mm[Hg] MEDENT ([facility]) Heart rate 78 /min 78 /min MEDENT ([facility]) Body height 65 [in_i] 65 [in_i] MEDENT ([facility]) 5'5" Body weight 146.00 [lb_av] 146.00 [lb_av] HANY [facility] ([facility]) Body mass index (BMI) [Ratio] 24.3 kg/m2 24.3 k g/m2 DALY ([facility])
--- OUTSIDE RECORDS SUMMARY | 2021-05-01 17:33 | CCD ---
Continuity of Care Document (CCD) Created on: 02/06/2021 TobiasLove thao External Reference #: [id number] : [id number] Sex: Female Author Author Lab Schedule, [facility] Unknown Address [address] [address] Phone Unavailable Care Team Providers Care Journalism Professor Name Role Phone Renard Abdi MD AUTM [phone] Problems Active Problems Provider Date Osteoarthritis Onset: 04/20/2008 Hypertensive disorder Onset: 01/30/2008 Allergic rhinitis Onset: 01/27/2008 Squamous cell carcinoma Onset: 8 Insomnia Onset: Depressive disorder Onset: Osteopenia Onset: Finding of frequency of urination Onset: Social History Type Date Description Comments Sex Unknown ETOH Use Occasionally consumes wine Tobacco Use Start: Unknown Patient has never smoked Allergies, Adverse Reactions, Alerts Active Allergies Reaction Severity Comments Date Celexa Mild, Nausea n/v 01/20/2012 Zoloft Mild, Nausea n/v 01/20/2012 Medications Active Medications [...] needed for shortness of breath 3units Phyl Dameon, MAGDALENA 05/03/2017 Multivitamins Capsules 1 by mouth every [...] CPT Code Status Date Vaccine Lot # 32759 Given 04/21/2020 Influenza Vaccin e Quadrivalent Preser/Antibiotic Free Im Use [id number] Given 07/20/2010 Zoster Vaccine 53596 Given 07/22/2008 Adacel- Tetanus Diphtheria P ertussis (Age64 & Under) 08985 Refused 12/08/2017 Pneumovax 23 29289 Refused 12/08/2017 Prevnar 13 16470 Refused 04/25/2013 Influenza Virus Vaccine 85870 Refused 04/11/2012 Influenza Virus Vaccine 91364 Refused 04/17/2008 Influenza Virus Vaccine Vital Signs [...] Range Note Total Iron Binding Capacit 01/30/2021 [facility] [address] [place] [address] [id number] [phone] Iron (Fe) 34 g/dL Low 50-170 Total Iron Binding Capacity 498 g/dL High 250-450 Percent Saturation 6.8 % Low 13.2-45.0 Laboratory test finding 01/30/2021 [facility] [address] [place] [address] [phone] Ferritin 8 NG/ML Normal 8-252 Vitamin B12 & Folate 01/30/2021 [facility] [address] [place] [address] [phone] Vitamin B12 Level 781 pg/mL Normal 1 Folate 9.2 NG/ML Normal 2 Complete Blood Count 01/30/2021 [facility] Rail Flaw Detector Operator: [place] [address] [phone] WBC 3.9 x10*3/UL Low 4.1 - 10.9 [...] 2.0 - 7.8 Comprehensive Chem Profile 01/30/2021 [facility] Marisol wesley [employer] Flaw Detector Operator: Dr Jarett Ocasio [place], [place] [id number] [phone] Glucose 79 mg/dL 74 - 99 3 [...] mL/min >60 4 Laboratory test finding 01/30/2021 [facility] Joel watts [employer] Flaw Detector Operator: [place] [address] [phone] Thyroid Stimulating Hormone 1.91 uIU/mL 0.3 6 - 3.74 Ua Dipstick Only 01/30/2021 [facility] Rail Flaw Detector Operator: Dr [place] [address] [phone] Urine Color YELLOW Yellow Urine Appearance SL. HAZY Abnormal Clear Urine PH 5.0 units 5.0 - 9.0 Urine Specific [place] 1.015 1.005 - 1.030 Urine Leukocytes MODERATE [...] LITTLE GFR LEFT ESRD GFR <15 ON TRAPPER ANIMAL Procedures Date Code Description Status 07/27/2016 953981886 Bone Mineral Density Test Comple melly 06/14/2012 [id number] Mammogram Completed Medical Devices Description No Information [...] 1:00 pm - Renard Abdi M.D. at [facility] 04/21/2020 - Renard Abdi M.D.* [...] No new symptoms. She follows up with fund controller at [place].4. Hypertensive chronic kidney disease: Stable. We will monitor.5. Chronic kidney disease: Stable. We will monitor.6. Nonrheumatic aortic valve disorders: No new symptoms at present. We will monitor.7. Insomnia: Not sleeping well. Zoloft does not work. Prescribed Trazodone. We will monitor.8. Pain in left leg: Improved. Follows with doctor at [place]. We will monitor.Ongoing cares: I am going to see her again in 5 months with comprehensive chem profile, lipid profile. If she has new problems or issues sooner, she will let us know. Functional Status Description No Information Available Mental Status Description No Information Available Referrals Description No Information Available
--- OUTSIDE RECORDS SUMMARY | 2021-05-01 17:33 | CCD | Continuity of Care Document ---
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 Name Role Phone Renard Abdi MD AUT [phone] Problems Description No Information Available Social History Type Date Description Comments Sex Unknown Allergies, Adverse Reactions, Alerts Description No Information Available Medications Active Medications SIG Qnty Indications Ordering [...] Available Procedures Date Code Description Status 02/02/2021 35161 Office/Outpatient New Moderate M DM 45-59 Minutes Completed 02/02/2021 65406 X-Ray Knee Complete W/Obliques & Tunnel And/Or Standing Views Completed Medical Devices Description No Information Available Encounters Type Date Location Provider Dx Diagnosis Office Visit 02/02/2021 3:15p [place] CATRACHITO Gomes M25.561 Pain in right knee M17.11 Unilateral primary osteoarth ritis, right knee Assessments Date Code Description Provider 02/02/2021 M25.561 Pain in right knee CATRACHITO García 02/02/2021 M17.11 Unilateral primary osteoarthriti s, right knee CATRACHITO Gomes Plan of Treatment 02/02/2021 - CATRACHITO Gomes* M25.561 Pain in right knee* New Medication:* Naprosyn 500 mg - 1 by mouth twice a day * Follow up:* in 2 weeks with IID * M17.11 Unilateral primary osteoarthritis, right knee Functional Status Description No Information Available Mental Status Description No Information Available Referrals Description No Information Available
[2021-05-01] MEDS ORDERED: VALS40TA9 PO (17:35)
[2021-05-01] MEDS ORDERED: ACE65ERTAB PO (17:35)
[2021-05-01] MEDS ORDERED: hydrALAZINE 20MG/ML 1ML VIAL (J0360 PER 20MG) IV ONE (22:10)
[2021-05-01 22:48] LABS: BASO % 0.2 % (0.0-1.0); EOS % 0.1 % (0.0-3.0); HEMATOCRIT 37.7 % (36.0-47.0); HEMOGLOBIN 11.1 g/dl (12.0-15.5); LYMPH % 18.8 % (24.0-44.0); MEAN CORPUSCULAR HEMOGLOBIN 22.9 pg (27.0-33.0); MEAN CORPUSCULAR HGB CONC 29.4 g/dl (32.0-36.5); MEAN CORPUSCULAR VOLUME 77.7 fl (80.0-96.0); MONO # 0.8 10^3/uL (0.0-0.8); MONO % 7.4 % (2.0-8.0); NEUTROPHILS # 7.8 10^3/uL (1.5-8.5); PLATELET COUNT, AUTOMATED 358 10^3/uL (150-450); RED BLOOD COUNT 4.85 10^6/uL (4.00-5.40); WHITE BLOOD COUNT 10.6 10^3/uL (4.0-10.0)
[2021-05-01 23:06] LABS: BLOOD UREA NITROGEN 22 MG/DL (7-18); CALCIUM LEVEL 9.4 MG/DL (8.8-10.2); CARBON DIOXIDE LEVEL 30 MEQ/L (21-32); CHLORIDE LEVEL 103 MEQ/L (98-107); CREATININE FOR GFR 0.77 MG/DL (0.55-1.30); GLOMERULAR FILTRATION RATE > 60.0 (>39); GLUCOSE, FASTING 102 MG/DL (70-100); MAGNESIUM LEVEL 2.1 MG/DL (1.8-2.4); POTASSIUM SERUM 3.8 MEQ/L (3.5-5.1); SODIUM LEVEL 138 MEQ/L (136-145)
[2021-05-01] MEDS ORDERED: MED REC COMMENT (23:13)
[2021-05-01] MEDS ORDERED: HOME MED LIST COMPLETE! XX SCH (23:15)
--- NOTE | 2021-05-01 23:27 | REPVR ---
PROCEDURE INFORMATION: Exam: CT Head Without Contrast Exam date and time: 05/01/2021 11:04 PM Age: 76 years old Clinical indication: Other: Leg pain; Additional info: Hypertensive urgency TECHNIQUE: Imaging protocol: Computed tomography of the head without contrast. Radiation optimization: All CT scans at this facility use at least one of these dose optimization techniques: automated exposure control; mA and/or kV adjustment per patient size (includes targeted exams where dose is matched to clinical indication); or iterative reconstruction. COMPARISON: No relevant prior studies available. FINDINGS: Brain: There are mild periventricular and subcortical lucencies consistent with chronic microvascular ischemic changes. The chew-white differentiation is maintained. No hemorrhage. No edema. Cerebral ventricles: No ventriculomegaly. Paranasal sinuses: Visualized sinuses are unremarkable. No fluid levels. Mastoid air cells: Visualized mastoid air cells are well aerated. Bones/joints: Unremarkable. No acute fracture. Soft tissues: Unremarkable. IMPRESSION: No acute intracranial abnormality. Chronic microvascular ischemic changes. Electronically signed by: Ganesh Isbell On 05/01/2021 23:26:51 PM
--- NOTE | 2021-05-01 23:28 | REPVR ---
PROCEDURE INFORMATION: Exam: XR Left Hip Exam date and time: 05/01/2021 10:52 PM Age: 76 years old Clinical indication: Hip pain; Left hip; Additional info: Left thiigh parastesias, and pain TECHNIQUE: Imaging protocol: XR Left hip. Views: 2 or 3 views hip with pelvis when performed. COMPARISON: No relevant prior studies available. FINDINGS: Bones/joints: Moderate to severe degenerative changes of the left hip joint. No acute fracture. No dislocation. Soft tissues: Unremarkable. IMPRESSION: Moderate to severe degenerative changes of the left hip joint. Electronically signed by: Ganesh Isbell On 05/01/2021 23:27:45 PM
--- NOTE | 2021-05-01 23:31 | REPVR ---
PROCEDURE INFORMATION: Exam: XR Lumbosacral Spine Exam date and time: 05/01/2021 10:52 PM Age: 76 years old Clinical indication: Low back pain; Additional info: Left thiigh parastesias, and pain TECHNIQUE: Imaging protocol: XR of the lumbosacral spine. Views: 4 or 5 views. COMPARISON: No relevant prior studies available. FINDINGS: Bones/joints: Scoliosis of the lumbar spine with convexity to the right. Multilevel degenerative disc disease. Vertebral heights are maintained. No spondylolisthesis. Soft tissues: Unremarkable. IMPRESSION: No acute abnormality. Electronically signed by: Ganesh Isbell On 05/01/2021 23:30:47 PM
[2021-05-02] VITALS (19 sets, daily range): BP systolic 91–215; BP diastolic 54–108
--- OUTSIDE RECORDS SUMMARY | 2021-05-02 00:17 | CCD ---
Author Author [facility] Organization [facility] Address Unknown Phone Unavailable Care Team Providers Care Oil Speculator Name Role Phone Annette, Angelica CATHOLIC PRIEST Unavailable Unavailable Annette, Angelica CATHOLIC PRIEST Unavailable Unavailable Annette, Angelica CATHOLIC PRIEST Unavailable Unavailable Annette, Angelica CATHOLIC PRIEST Unavailable Unavailable Annette, Angelica CATHOLIC PRIEST Unavailable Unavailable Annette, Angelica CATHOLIC PRIEST Unavailable Unavailable Annette, Angelica CATHOLIC PRIEST Unavailable Unavailable Annette, Angelica CATHOLIC PRIEST Unavailable Unavailable Annette, Angelica CATHOLIC PRIEST Unavailable Unavailable Annette, Angelica CATHOLIC PRIEST Unavailable Unavailable Annette, Angelica CATHOLIC PRIEST Unavailable Unavailable Annette, Angelica CATHOLIC PRIEST Unavailable Unavailable Annette, Angelica CATHOLIC PRIEST Unavailable Unavailable Annette, Angelica CATHOLIC PRIEST Unavailable Unavailable Annette, Angelica CATHOLIC PRIEST Unavailable Unavailable Annette, Angelica CATHOLIC PRIEST Unavailable Unavailable Annette, Angelica CATHOLIC PRIEST Unavailable Unavailable Annette, Angelica CATHOLIC PRIEST Unavailable Unavailable Annette, Angelica CATHOLIC PRIEST Unavailable Unavailable Annette, Angelica CATHOLIC PRIEST Unavailable Unavailable Annette, Angelica CATHOLIC PRIEST Unavailable Unavailable Annette, Angelica CATHOLIC PRIEST Unavailable Unavailable Annette, Angelica CATHOLIC PRIEST Unavailable Unavailable Annette, Angelica CATHOLIC PRIEST Unavailable Unavailable Annette, Angelica CATHOLIC PRIEST Unavailable Unavailable Annette, Angelica CATHOLIC PRIEST Unavailable Unavailable Annette, Angelica CATHOLIC PRIEST Unavailable Unavailable Annette, Angelica CATHOLIC PRIEST Unavailable Unavailable Annette, Angelica CATHOLIC PRIEST Unavailable Unavailable Annette, Angelica CATHOLIC PRIEST Unavailable Unavailable Annette, Nagelica CATHOLIC PRIEST Unavailable Unavailable Annette, Angelica CATHOLIC PRIEST Unavailable Unavailable Annette, Angelica CATHOLIC PRIEST Unavailable Unavailable Annette, Angelica CATHOLIC PRIEST Unavailable Unavailable Annette, Angelica CATHOLIC PRIEST Unavailable Unavailable Trinidad F Renard JARRELL Unavailable Unavailable Trinidad F Renard JARRELL Unavailable Unavailable White F Renardana paula JARRELL Unavailable Unavailable White F Renardana paula JARRELL Unavailable Unavailable White F Renardana paula JARRELL Unavailable Unavailable White, F Renard Unavailable Unavailable White F Renardana paula JARRELL Unavailable Unavailable White F Renardana paula JARRELL Unavailable Unavailable White F Renardana paula JARRELL Unavailable Unavailable White F Renardana paula JARRELL Unavailable Unavailable White F Renardana paula JARRELL Unavailable Unavailable White F Renard JARRELL [...] F Renard JARRELL Unavailable Unavailable White F Renardana paula JARRELL Unavailable Unavailable White F Renardana paula JARRELL Unavailable Unavailable Trinidad F Renard JARRELL Unavailable Unavailable Trinidad F Renard JARRELL Unavailable Unavailable Trinidad F Renard JARRELL Unavailable Unavailable Trinidad F Renard JARRELL Unavailable Unavailable Trinidad F Renard JARRELL Unavailable Unavailable Trinidad F Renard JARRELL Unavailable Unavailable White F Renard MD Unavailable Unavailable Gosia Abdi MD Unavailable [...] Unavailable LETTIERE, A KUNAL PA Unavailable Unavailable Jorge LUKE JR-C Unavailable Unavailable PICKERAL JR, J NED PA-C [...] NED PA-C Unavailable Unavailable PICKERAL JR, J END PA-C Unavailable Unavailable PICKERAL JR, J NED [...] is protected by Article 27-F of the [facility] Public Health law. If you continue you may have access to information: Regarding HIV / AIDS; Provided by facilities licensed or operated by the [facility] Office of Mental Health; or Provided by the [facility] Office for People With Developmental Disabilities. If such information is present, then the following [facility] mandated warning applies: This information has been [...] law may result in a fine or fci sentence or both. A general authorization for the release of medical or other information is NOT sufficient authorization for further disc losure. Family History Family Member Name Family Member Gender Family Member Status Date o f Status Description Data Source(s) Unknown Female Problem [facility] ([facility]) Unknown Unknown Encounters Encounter Providers Location Date Indications Data Source(s ) Outpatient Attender: KUNAL ryan 03/31/2021 01:15:00 PM EDT [facility] ([facility]) Outpatient Attender: GISSELL WINSTON Physical Therapy 02/02/2021 0 3:15:00 PM EDT [facility] ([facility]) Outpatient Attender: NED Weber 1 07/22/2019 01:00:00 PM EST [facility] ([facility] ) Outpatient Attender: Angelica Weber 01:40:00 PM EDT [facility] ([facility] ) Outpatient Attender: Renard Weber 04/21 01:30:00 PM EDT [facility] ([facility] ) Outpatient Attender: NED Weber 0 04/14/2020 03:00:00 PM EDT [facility] ([facility] ) Outpatient Attender: Renard Weber 03/05 11:30:00 AM EDT [facility] ([facility] ) Immunizations Vaccine Date Status Description Data Source(s) COVID-19 VACC, MRNA(PFIZER)/PF 01/10/2021 12:00:00 AM EDT completed [facility] COVID-19 VACCINE Pfizer 01/09/2021 12:00:00 AM EDT completed [facility] Vaccine Series Complete: NOThis Data was Submitted to [facility] Via [facility]. Influenza, injectable, MDCK, preservative free, destiny valent 04/21/2020 01:37:00 PM EDT completed [facility]) Medications Medication Brand Name Start Date Product [...] 12:00:00 AM E DT ORAL active [facility] ([facility]) NITROFURANTOIN, MACROCRYSTALS 25 MG / Ni trofurantoin, Monohydrate 75 MG Oral Capsule [Macrobid] Macrobid 04/20/2021 12:00:00 AM EDT ORAL completed [facility] ([facility] ) NITROFURANTOIN, MACROCRYSTALS 25 MG / Ni trofurantoin, Monohydrate 75 MG Oral Capsule 100 mg NITROFURANTOIN MONOHYD/M-CRYST 04/20/2021 12:00:00 AM EDT ca psule 14 TAKE ONE CAPSULE BY MOUTH TWICE A DAY WITH FOOD FOR 7 DAYS TAKE ONE CAPSULE BY MOUTH TWICE A DAY WITH FOOD FOR 7 DAYS SOLD: 04/20/2021 [facility] 12 HR CHLORPHENIRAMINE POLISTIREX 1.6 MG [...] MAXIMUM DAILY DOSE = 10ML SOLD: 04/04/2021 [facility] 12 HR CHLORPHENIRAMINE POLISTIREX 1.6 MG /ML / HYDROCODONE POLISTIREX 2 MG/ML Extended Release Suspension Hydrocodone Polistirex/Chlorpheniramine Polistirex 04/03/2021 12:00:00 AM EDT active [facility] ([facility]) Amoxicillin 875 MG Oral Tablet Amoxicillin 03/31/2021 12:00:00 AM EDT active [facility] ([facility]) No Active Medications 03/31/2021 12:00:00 AM EDT completed [facility] ([facility]) 875 mg 03/31/2021 12:00:00 AM EDT tablet 20 TAKE ONE TABLET BY MOUTH EVERY 12 HOURS FOR 10 DAYS TAKE ONE TABLET BY MOUTH EVERY 12 HOURS FOR 10 DAYS SO LD: 03/31/2021 [facility] Naproxen 500 MG Oral Tablet [Naprosyn] [...] 12:00:00 AM EST ORAL active [facility] ([facility]) NITROFURANTOIN, MACROCRYSTALS 25 MG / Ni trofurantoin, Monohydrate 75 MG Oral Capsule Nitrofurantoin Monohyd Macro 05/16/2020 12:00:00 AM EDT ORAL completed [facility] ([facility]) 100 mg 05/16/2020 12:00:00 AM EDT [...] Vaccine 04/21/2020 12:00:00 AM EDT completed [facility]) Medication administered onsite 10-8 mg/5 [...] Release 04/21/2020 12:00:00 AM EDT active [facility] ([facility]) Trazodone Hydrochloride 50 MG Oral Tablet Trazodone HCL 04/21/2020 12:00:00 AM EDT ORAL active [facility] ([facility]) 12 HR CHLORPHENIRAMINE POLISTIREX 1.6 MG /ML / HYDROCODONE POLISTIREX 2 MG/ML Extended Release Suspension [Tussionex] Tussionex Pennkinetic Extended Release 04/21/2020 12:00:00 AM EDT completed [facility] ([facility]) Prednisone 10 MG Oral Tablet Prednisone 04/14/2020 12:00:00 AM EDT ORAL completed [facility] ([facility]) 10 mg 04/14/2020 12:00:00 AM EDT [...] 04/14/2020 12:00:00 AM EDT ORAL completed [facility] ([facility]) 24 HR tolterodine tartrate 4 MG Extended Release Oral Capsule [Detrol] Detrol LA 04/14/2020 12:00:00 AM EDT ORAL active [facility] ([facility]) 250 mg 04/14/2020 12:00:00 AM EDT [...] 12:00 :00 AM EDT ORAL active [facility] ([facility]) Codeine Phosphate 2 MG/ML / Guaifenesin 20 MG/ML Oral Solution Guaifenesin-Codeine 02/11/2020 12:00:00 AM EDT ORAL com pleted [facility] ([facility]) Prednisone 10 MG Oral Tablet Prednisone 02/11/2020 12:00:00 AM EDT ORAL completed [facility] ([facility]) Ciprofloxacin 500 MG Oral Tablet Ciprofloxacin HCL 12/31/2019 12:00 :00 AM EDT ORAL completed [facility] ([facility]) Ciprofloxacin 250 MG Oral Tablet [Cipro] Cipro 12/17/2019 12:00:00 AM EDT completed [facility] ([facility]) Insurance Providers Payer name Policy type / Coverage type Policy ID Covered constitution party ID Covered constitution party's relationship to potter Policy Potter Plan Information Medicare Natl Govt Servic Medicare Primary [id number] Self [id number] Medicare Natl Govt Servic Medicare Primary [id number] Self [id number] Medicare Natl Govt Servic Medicare Primary [id number] Self [id number] Medicare Natl Govt Servic Medicare Primary [id number] Self Medicare Natl Govt Servic Medicare Primary [id number] Self [id number] Medicare Natl Govt Servic Medicare Primary [id number] Self [id number] Medicare Natl Govt Servic Medicare Primary [id number] Self [id number] MEDICARE [id number] SP [id number] A BS [facility] [id number] Self [id number] [place] 200/700 [id number] [id number] BS [facility] [id number] Self [id number] O UNAVAILABLE UNAVAILA BLE BS [facility] [id number] Self [id number] BS [facility] [id number] Self [id number] [facility] 200 [id number] Self 20 0 BS/W/Id#Prefix/W ALL #'S Medigap Part B [id number] Self Medicare Natl Gov't Servi Medicare Primary [id number] Self MEDICARE [id number] SP [id number] [place] 200/700 [id number] SP [id number] MEDICARE C [id number] S [id number] EXCELLUS BCBS B [id number] S [id number] MEDICARE C [id number] S [id number] A BS [facility] [id number] Self [id number] [facility] [id number] Self [id number] Problems, Conditions, and Diagnoses Code Display Name Description Problem Type Effective Dates Data Source(s) [id number] Essential hypertension Essential hypertension Problem 02/02/2021 12:00:00 AM EDT [facility] ([facility] ) Surgeries/Procedures Procedure Description Date Indications Data Source(s) OFFICE OUTPATIENT NEW 30 MINUTES 03/31/2021 12:00:00 A M EDT [facility] ([facility]) RADIOLOGIC EXAM KNEE COMPLETE 4/MORE VIEWS 02/02/2021 12:00:00 AM EDT [facility] ([facility]) OFFICE OUTPATIENT NEW 45 MINUTES 02/02/2021 12:00:00 A M EDT [facility] ([facility]) Results ID Date Data Source [id number] 04/20/2021 01:12:00 PM EDT [facility] ([facility]) Name Value Range Interpretation Code Description Data Susie rce(s) Supporting Document(s) Bacteria identified in Urine by Culture Laboratory test result [facility] ([facility]) on Macrobid - will change to [facility] sees urology (had cx'd appt prior and saw doctors in [place] but no information). JW ID Date Data Source [id number] 04/20/2021 12:54:00 PM EDT [facility] ([facility]) Name Value Range Interpretation Code Description Data Susie rce(s) Supporting Document(s) Urine Color Laboratory test result [facility] ([facility]) [facility] positive, renal function normal on recent check. JW Urine Appearance Laboratory test result Abnormal (applies to non-numeric results) [facility], renal function normal on recent check. Urine PH 8.0 units 5.0-9.0 [facility] started macrobid - sent to [facility] - Nit rate positive, renal function normal on recent check. Specific gravity of Urine 1.010 1.005-1.030 [facility] ([facility]) started macrobid - sent to [facility] - Nit rate positive, renal function normal on recent check. Urine Leukocytes Laboratory test result Abnormal (applies to non-numeric results) [facility] ([facility]) started macrobid - sent to [facility] - Nit rate positive, renal function normal on recent check. Urine Blood Laboratory test result Abnormal (applies to non-numeric results) [facility] ([facility]) started macrobid - sent to [facility] - Nit rate positive, renal function normal on recent check. Urine Protein Laboratory test result 0-0 [facility] ([facility]) started macrobid - sent to [facility] - Nit rate positive, renal function normal on recent check. Urine Nitrite Laboratory test result Abnormal (applies to non-numeric results) [facility] ([facility]) started macrobid - sent to [facility] - Nit rate positive, renal function normal on recent check. Glucose [Presence] in Urine Laboratory test result [facility] ([facility]) started macrobid - sent to [facility] - Nit rate positive, renal function normal on recent check. Urine Ketone Laboratory test result [facility] ([facility]) started macrobid - sent to [facility] - Nit rate positive, renal function normal on recent check. Bilirubin.total [Mass/volume] in Serum or Plasma Laboratory test resu lt [facility] ([facility]) started macrobid - sent to [facility] - Nit rate positive, renal function normal on recent check. Urine Urobilinogen 0.2 mg/dL 0.2-1.0 [facility] ([facility]) started macrobid - sent to [facility] - Nit rate positive, renal function normal on recent check. JW ID Date Data Source [id number] 03/31/2021 12:00:00 AM EDT [facility] Name Value Range Interpretation Code Description Data Susie rce(s) Supporting Document(s) SARS-CoV2 Rapid Antigen Negative [facility] [place] ID Date Data Source [id number] 01/30/2021 10:30:00 AM EDT [facility] ([facility]) Name Value Range Interpretation Code Description Data Susie rce(s) Supporting Document(s) Vitamin B12 Level 781 pg/mL [facility] ([facility]) VITAMIN B12 NORMAL RANGE NORMAL 247 - 911 PG/ML INDETERMINATE 211 - 246 PG/ML DEFICIENT LESS THAN 211 PG/ML Folate 9.2 ng/mL [facility] ([facility]) FOLATE NORMAL RANGE NORMAL GREATER THAN 5.4 NG/ML INDETERMINATE 3.4-5.4 NG/ML DEFICIENT LESS THAN 3.4 NG/ML ID Date Data Source [id number] 01/30/2021 10:30:00 AM EDT [facility] ([facility]) Name Value Range Interpretation Code Description Data Susie rce(s) Supporting Document(s) Ferritin [Mass/volume] in Serum or Plasma 8 ng/mL 8-252 [facility] ([facility]) ID Date Data Source [id number] 01/30/2021 10:30:00 AM EDT [facility] ([facility]) Name Value Range Interpretation Code Description Data Susie rce(s) Supporting Document(s) Iron (Fe) 34 ug/dL 50-170 [facility] ([facility]) Percent Saturation 6.8 % 13.2-45.0 [facility] Total Iron Binding Capacity 498 ug/dL 250-450 [facility] ([facility]) ID Date Data Source [id number] 01/30/2021 10:29:00 AM EDT [facility] Name Value Range Interpretation Code Description Data Susie rce(s) Supporting Document(s) Urine Color Laboratory test result [facility] T ([facility]) attempted to reach her (see triage), has appt but is to get records from [place] since most of year there. Urine PH 5.0 units 5.0-9.0 [facility] ([facility]) attempted to reach her (see triage), has appt but [place] to get records [place] since most of year there. Urine Appearance Laboratory test result Abnormal (applies to non-numeric results) [facility] ([facility]) attempted to reach her (see triage), has appt but [place] to [place] most of year there. Urine Blood Laboratory test result Abnormal (applies to non-numeric results) [facility] ([facility]) attempted to reach her (see triage), has appt but [place] to [place] most of year there. Urine Leukocytes Laboratory test result Abnormal (applies to non-numeric results) [facility] ([facility]) attempted to reach her (see triage), has appt but [place] most of year there. Specific gravity of Urine 1.015 1.005-1.030 [facility] ([facility]) attempted to reach her (see triage), has appt but [place] most of year there. Glucose [Presence] in Urine Laboratory test result [facility] ([facility]) attempted to reach her (see triage), has appt but [place] most of year there. Urine Protein Laboratory test result 0-0 Abnormal (applies to non-numeric results) [facility] ([facility]) attempted to reach her (see triage), has appt but [place] most of year there. Urine Ketone Laboratory test result [facility]E NT ([facility]) attempted to reach her (see triage), has appt but [place] most of year there. Urine Nitrite Laboratory test result [facility] ([facility]) attempted to reach her (see triage), has appt but [place] most of year there. Urine Urobilinogen 0.2 mg/dL 0.2-1.0 [facility] ([facility]) attempted to reach her (see triage), has appt but [place] most of year there. Bilirubin.total [Mass/volume] in Serum or Plasma Laboratory test resu lt [facility] ([facility]) attempted to reach her (see triage), [place] appt but [place] most of year there. ID Date Data Source [id number] 01/30/2021 10:29:00 AM EDT [facility] ([facility]) Name Value Range Interpretation Code Description Data Susie rce(s) Supporting Document(s) Thyrotropin [Units/volume] in Serum or Plasma by Detec tion limit <= 0.05 mIU/L 1.91 uIU/mL 0.36-3.74 [facility] ([facility] ) attempted to reach her (see triage), [place] appt but [place] most [place] year there. ID Date Data Source [id number] 01/30/2021 10:29:00 AM EDT [facility] ([facility]) Name Value Range Interpretation Code Description Data Susie rce(s) Supporting Document(s) Urea nitrogen [Mass/volume] in Serum or Plasma 25 mg/dL 7-18 [facility] ([facility]) attempted to reach her (see triage), [place] appt but [place] most [place] year there. Glucose [Mass/volume] in Serum or Plasma 79 mg/dL 74-99 [facility] ([facility]) attempted to reach her (see triage), has appt but [place] most [place] year there. Creatinine 0.8 mg/dL 0.6-1.3 [facility] attempted to reach her (see triage), has appt but [place] most of year there. Potassium [Moles/volume] in Serum or Plasma 4.2 meq/L 3.5-5.1 [facility] ([facility]) attempted to reach her (see triage), has appt but [place] most of year there. Sodium [Moles/volume] in Serum or Plasma 142 meq/L 136-145 [facility] ([facility]) attempted to reach her (see triage), has appt but [place] most of year there. Calcium [Mass/volume] in Serum or Plasma 9.7 mg/dL 8.5-10.1 [facility] ([facility]) attempted to reach her (see triage), has appt but [place] most of year there. Chloride [Moles/volume] in Serum or Plasma 106 meq/L 98-107 [facility] ([facility]) attempted to reach her (see triage), has appt but [place] most of year there. Carbon dioxide, total [Moles/volume] in Serum or Plasma 30 meq/L 21 -32 [facility] ([facility]) attempted to reach her (see triage), has appt but [place] most of year there. Total Bilirubin 0.5 mg/dL 0.2-1.0 [facility] ([facility]) attempted to reach her (see triage), has appt but [place] most of year there. Alkaline phosphatase isoenzyme [Units/volume] in Serum or Pl asma 70 mg/dL 46-116 [facility] ([facility]) attempted to reach her (see triage), has appt but [place] most of year there. Aspartate aminotransferase [Enzymatic activity/volume] in Serum or Plasma 42 U/L 15-37 [facility] ([facility] ) attempted to reach her (see triage), has appt but [place] most of year there. Alanine aminotransferase [Enzymatic activity/volume] in Seru m or Plasma 48 U/L 12-78 [facility] ([facility]) attempted to reach her (see triage), has appt but [place] most of year there. Albumin [Mass/volume] in Serum or Plasma 4.0 g/dL 3.4-5.0 [facility] ([facility]) attempted to reach her (see triage), has appt but [place] most of year there. A/G Ratio 1.08 CALC 1.00-1.90 [facility] attempted to reach her (see triage), has appt but [place] most of year there. Proteinase 3 Ab [Units/volume] in Serum 7.7 g/dL 6.4-8.2 [facility] ([facility]) attempted to reach her (see triage), has appt but [place] most of year there. Glomerular filtration rate/1.73 sq M pre dicted among non-blacks [Volume Rate/Area] in Serum or Plasma by Creatinine-based formula (MDRD) Laboratory test result [facility] ([facility] ) attempted to reach her (see triage), has appt but [place] most of year there. Glomerular filtration rate/1.73 sq M pre dicted among blacks [Volume Rate/Area] in Serum or Plasma by Creatinine-based formula (MDRD) Laboratory test result [facility] ([facility]) attempted to reach her (see triage), has appt but [place] most of year there. ID Date Data Source [id number] 01/30/2021 10:29:00 AM EDT [facility] ([facility]) Name Value Range Interpretation Code Description Data Susie rce(s) Supporting Document(s) Leukocytes [#/volume] in Blood by Automated count 3.9 x10*3/UL 4.1-10 .9 [facility] ([facility]) attempted to reach her (see triage), has appt but [place] most of year there. Erythrocytes [#/volume] in Blood by Automated count 4.52 x10*6/UL 4.2 0-6.30 [facility] ([facility]) attempted to reach her (see triage), has appt but [place] most of year there. Hematocrit [Volume Fraction] of Blood by Automated count 32.3 % 3 7.0-51.0 [facility] ([facility]) attempted to reach her (see triage), has appt but is to get records [place] most of year there. Hemoglobin [Mass/volume] in Blood 10.1 g/dL 12.0-18.0 MED[facility] ([facility]) attempted to reach her (see triage), [place] appt [place]. MCH 22.4 pg 26.0-32.0 [facility] ([facility]) attempted to reach her (see triage), [place] appt [place]. MCV 71.4 fL 80.0-97.0 [facility] ([facility]) attempted to reach her (see triage), has appt [place]. Erythrocyte distribution width [Ratio] by Automated count 16.2 % 11.6-13.7 [facility] ([facility]) attempted to reach her (see triage), [place] appt [place]. MCHC 31.4 g/dL 31.0-38.0 [facility] ([facility]) attempted to reach her (see triage), [place] appt [place]. Platelets [#/volume] in Blood by Automated count 254 x10*3/UL 140-440 [facility] ([facility]) attempted to reach her (see triage), [place] appt [place]. MPV 9.7 [place] 7.8-11.0 [facility] attempted to reach her (see triage), [place] appt [place]. Lymph % 36.3 % 10.0-58.5 [facility] attempted to reach her (see triage), [place] appt [place]. Mid % 8.9 % 1.7-9.3 [facility] attempted to reach her (see triage), [place] appt [place]. Neut % 54.8 % 37.0-92.0 [facility] attempted to reach her (see triage), [place] appt [place]. Lymph # 1.4 x10*3/UL 0.6-4.1 [facility] ([facility]) attempted to reach her (see triage), [place] appt [place]. Mid # 0.4 x10*3/UL 0.1-0.6 [facility] ([facility]) attempted to reach her (see triage), [place] appt [place]. Neut # 2.1 x10*3/UL 2.0-7.8 [facility] ([facility]) attempted to reach her (see triage), [place] appt [place] of [place]. ID Date Data Source [id number] 05/22/2020 02:04:00 PM EST [facility] ([facility]) Name Value Range Interpretation Code Description Data Susie rce(s) Supporting Document(s) Bacteria identified in Urine by Culture Laboratory test result MED[facility] ([facility]) FULL REPORT IN LAB NOTES (eCW and [facility] ). NO GROWTH CLINICAL SIGNIFICANCE 1 ORGANISM ID Date Data Source [id number] 05/22/2020 02:04:00 PM EST [facility] Name Value Range Interpretation Code Description Data Susie rce(s) Supporting Document(s) Urine Appearance Laboratory test result [facility] Urine Color Laboratory test result MEDEN T ([facility]) Urine PH 6.0 units 5.0-9.0 [facility] Urine Leukocytes Laboratory test result Abnormal (applies to non-numeric results) [facility] Specific gravity of Urine 1.020 1.005-1.030 [place] DENT ([facility] Urine Blood Laboratory test result MED[facility] T ([facility] Glucose [Presence] in Urine Laboratory test result [facility] Urine Protein Laboratory test result 0-0 Abnormal (applies to non-numeric results) [facility] ([facility] Urine Ketone Laboratory test result MEDE NT ([facility] Urine Urobilinogen 0.2 mg/dL 0.2-1.0 [facility] ([facility] Urine Nitrite Laboratory test result MED ENT ([facility] Bilirubin.total [Mass/volume] in Serum or Plasma Laboratory test resu lt [facility] ([facility]) ID Date Data Source [id number] 05/16/2020 01:44:00 PM EDT [facility] ([facility] Name Value Range Interpretation Code Description Data Susie rce(s) Supporting Document(s) Bacteria identified in Urine by Culture Laboratory test result [facility]) FULL REPORT IN LAB NOTES (eCW and [facility] ). SPECIMEN APPEARS CONTAMINATED ID Date Data Source [id number] 05/16/2020 01:44:00 PM EDT [facility] ([facility] Name Value Range Interpretation Code Description Data Susie rce(s) Supporting Document(s) Urine PH 6.0 units 5.0-9.0 [facility] Urine Color Laboratory test result Abnormal (applies to non-numeric results) [facility] ([facility]) Urine Appearance Laboratory test result Abnormal (applies to non-numeric results) [facility] Specific gravity of Urine 1.025 1.005-1.030 [place] [facility] ([facility] Urine Blood Laboratory test result Abnormal (applies to non-numeric results) [facility] ([facility]) Urine Protein Laboratory test result 0-0 Abnormal (applies to non-numeric results) [facility] ([facility]) Urine Leukocytes Laboratory test result Abnormal (applies to non-numeric results) [facility] ([facility]) Glucose [Presence] in Urine Laboratory test result [facility] ([facility]) Urine Nitrite Laboratory test result MED ENT ([facility]) Urine Ketone Laboratory test result MEDE NT ([facility]) Urine Urobilinogen 0.2 mg/dL 0.2-1.0 [facility] ([facility]) Bilirubin.total [Mass/volume] in Serum or Plasma Laboratory test resu lt [facility] ([facility]) ID Date Data Source [id number] 04/21/2020 01:25:00 PM EDT [facility] ([facility]) Name Value Range Interpretation Code Description Data Susie rce(s) Supporting Document(s) Triglyceride [Mass/volume] in Serum or Plasma 83 mg/dL 30-150 [facility] ([facility]) Cholesterol [Mass/volume] in Serum or Plasma 150 mg/dL 131-200 [facility] ([facility]) Cholesterol in HDL [Mass/volume] in Serum or Plasma 60 mg/dL 35-60 [facility] Cholesterol in LDL [Mass/volume] in Serum or Plasma by calcu lation 73 CALC 50-159 [facility] ([facility]) ID Date Data Source [id number] 04/21/2020 01:25:00 PM EDT [facility] ([facility] Name Value Range Interpretation Code Description Data Susie rce(s) Supporting Document(s) Glucose [Mass/volume] in Serum or Plasma 179 mg/dL 74-99 [facility] ([facility]) 100-125 mg/dL PRE-DIABETES/FASTING >126 mg/dL DIABETES/FASTING Urea nitrogen [Mass/volume] in Serum or Plasma 25 mg/dL 7-18 [facility] ([facility]) Creatinine 1.0 mg/dL 0.6-1.3 [facility] ([facility]) Sodium [Moles/volume] in Serum or Plasma 141 meq/L 136-145 [facility] ([facility]) Potassium [Moles/volume] in Serum or Plasma 4.2 meq/L 3.5-5.1 [facility] ([facility]) Chloride [Moles/volume] in Serum or Plasma 104 meq/L 98-107 [facility] ([facility]) Carbon dioxide, total [Moles/volume] in Serum or Plasma 26 meq/L 21 -32 [facility] ([facility]) Total Bilirubin 0.4 mg/dL 0.2-1.0 [facility] ([facility]) Calcium [Mass/volume] in Serum or Plasma 9.2 mg/dL 8.5-10.1 [facility] ([facility]) Alkaline phosphatase isoenzyme [Units/volume] in Serum or Pl asma 60 mg/dL 46-116 [facility] ([facility]) Alanine aminotransferase [Enzymatic activity/volume] in Seru m or Plasma 53 U/L 12-78 [facility] ([facility]) Albumin [Mass/volume] in Serum or Plasma 3.9 g/dL 3.4-5.0 [facility] ([facility]) Aspartate aminotransferase [Enzymatic activity/volume] in Serum or Plasma 44 U/L 15-37 [facility] ([facility] ) Glomerular filtration rate/1.73 sq M pre dicted among non-blacks [Volume Rate/Area] in Serum or Plasma by Creatinine-based formula (MDRD) 54 mL/min [facility] ([facility]) Proteinase 3 Ab [Units/volume] in Serum 7.7 g/dL 6.4-8.2 [facility] ([facility]) A/G Ratio 1.03 CALC 1.00-1.90 [facility]) Glomerular filtration rate/1.73 sq M pre dicted among blacks [Volume Rate/Area] in Serum or Plasma by Creatinine-based formula (MDRD) Laboratory test result [facility] ([facility]) <content>CHRONIC KIDNEY DISEASE STAGING PER NKF</content>
<content></content>
<content>STAGE I & II GFR >= 60 NORMAL TO MILDLY DECREASED</content>
<content>STAGE III GFR 30-59 MODERATELY DECREASED</content>
<content>STAGE IV GFR 15-29 SEVERELY DECREASED</content>
<content>STAGE V GFR <15 VERY LITTLE GFR LEFT</content>
<content>ESRD GFR <15 ON EARLY CHILDHOOD</content>
<content></content> ID Date Data Source [id number] 04/14/2020 02:51:00 PM EDT [facility] ([facility]) Name Value Range Interpretation Code Description Data Susie rce(s) Supporting Document(s) Urine Appearance Laboratory test result Abnormal (applies to non-numeric results) [facility] ([facility]) Urine PH 7.0 units 5.0-9.0 [facility]) Urine Color Laboratory test result MEDEN T ([facility]) Specific gravity of Urine 1.015 1.005-1.030 [facility] DENT ([facility]) Urine Blood Laboratory test result Abnormal (applies to non-numeric results) [facility] ([facility]) Urine Leukocytes Laboratory test result Abnormal (applies to non-numeric results) [facility] ([facility]) Urine Protein Laboratory test result 0-0 Abnormal (applies to non-numeric results) [facility] ([facility]) Glucose [Presence] in Urine Laboratory test result [facility] ([facility]) Urine Nitrite Laboratory test result MED ENT ([facility]) Bilirubin.total [Mass/volume] in Serum or Plasma Laboratory test resu lt [facility] ([facility]) Urine Ketone Laboratory test result MEDE NT ([facility]) Urine Urobilinogen 0.2 mg/dL 0.2-1.0 [facility] ([facility]) Procedure Social History No Information Vital Signs ID Date Data Source UNK Name Value Range Interpretation Code Description Data Source(s) Systolic blood pressure 153 mm[Hg] 153 mm[Hg] M EDENT ([facility], [facility]) Body height 64 [in_i] 64 [in_i] [facility] ([facility]) 5'4" Diastolic blood pressure 90 mm[Hg] 90 mm[Hg] [facility]) Heart rate 64 /min 64 /min [facility] ([facility]) Respiratory rate 6 /min 6 /min [facility] ( [facility]) Oxygen saturation in Arterial blood by Pulse oximetry 96 % 96 % [facility] ([facility]) Body temperature 98.4 [degF] 98.4 [degF] [facility] ([facility]) Body weight 145.00 [lb_av] 145.00 [lb_av] MEDEN T ([facility], [facility]) Body mass index (BMI) [Ratio] 24.9 kg/m2 24.9 k g/m2 [facility] ([facility]) Body temperature 96.9 [degF] 96.9 [degF] [facility] ([facility] ) Body height 63 [in_i] 63 [in_i] [facility] ([facility] ) 5'3" Body weight 148.00 [lb_av] 148.00 [lb_av] MEDEN T ([facility] ) Body mass index (BMI) [Ratio] 26.2 kg/m2 26.2 k g/m2 [facility] ([facility] ) Systolic blood pressure 140 mm[Hg] 140 mm[Hg] EDENT ([facility]) Diastolic blood pressure 70 mm[Hg] 70 mm[Hg] [facility] ([facility]) Heart rate 75 /min 75 /min [facility]) Body height 65 [in_i] 65 [in_i] [facility] ([facility]) 5'5" Oxygen saturation in Arterial blood by Pulse oximetry 96 % 96 % [facility] ([facility]) Air Body mass index (BMI) [Ratio] 24.6 kg/m2 24.6 k g/m2 [facility] ([facility]) Body weight 148.00 [lb_av] 148.00 [lb_av] MEDEN T ([facility]) Body mass index (BMI) [Ratio] 24.6 kg/m2 24.6 k g/m2 [facility] ([facility]) Heart rate 80 /min 80 /min [facility] ([facility]) Body height 65 [in_i] 65 [in_i] [facility] ([facility]) 5'5" Body weight 148.00 [lb_av] 148.00 [lb_av] MEDEN T ([facility]) Systolic blood pressure 142 mm[Hg] 142 mm[Hg] M EDENT ([facility]) RT Arm Diastolic blood pressure 68 mm[Hg] 68 mm[Hg] [facility] ([facility]) RT Arm Systolic blood pressure 126 mm[Hg] 126 mm[Hg] [facility] Diastolic blood pressure 770 mm[Hg] 770 mm[Hg] [facility] ([facility]) Body height 65 [in_i] 65 [in_i] [facility] ([facility]) 5'5" Heart rate 78 /min 78 /min [facility] ([facility]) Body weight 147.00 [lb_av] 147.00 [lb_av] MEDEN T ([facility]) Body mass index (BMI) [Ratio] 24.5 kg/m2 24.5 k g/m2 [facility] ([facility]) Systolic blood pressure 118 mm[Hg] 118 mm[Hg] [facility] Diastolic blood pressure 70 mm[Hg] 70 mm[Hg] [facility] ([facility]) Heart rate 73 /min 73 /min [facility] ([facility]) Body temperature 98.2 [degF] 98.2 [degF] [facility] ([facility]) Body height 65 [in_i] 65 [in_i] [facility] ([facility]) 5'5" Body weight 146.00 [lb_av] 146.00 [lb_av] MEDEN T ([facility]) Body mass index (BMI) [Ratio] 24.3 kg/m2 24.3 k g/m2 [facility] ([facility]) Systolic blood pressure 126 mm[Hg] 126 mm[Hg] M EDENT ([facility]) Diastolic blood pressure 72 mm[Hg] 72 mm[Hg] DALY ([facility]) Heart rate 78 /min 78 /min DALY ([facility]) Body height 65 [in_i] 65 [in_i] [facility] 5'5" Body weight 146.00 [lb_av] 146.00 [lb_av] HANY T ([facility]) Body mass index (BMI) [Ratio] 24.3 kg/m2 24.3 k g/m2 [facility]
[2021-05-02 00:23] LABS: RSV AMPLIFICATION NEGATIVE (NEGATIVE)
[2021-05-02] MEDS ORDERED: ENALAPRILAT INJ 2.5MG/2ML VIAL IV ONE (00:40)
--- OUTSIDE RECORDS SUMMARY | 2021-05-02 00:59 | CCD ---
Author Author [facility] Organization [facility] Address Unknown Phone Unavailable Care Team Providers Care Corral Boss Name Role Phone Annette, Angelica SILL WORKER Unavailable Unavailable Annette, Angelica SILL WORKER Unavailable Unavailable Annette, Angelica SILL WORKER Unavailable Unavailable Annette, Angelica SILL WORKER Unavailable Unavailable Annette, Angelica SILL WORKER Unavailable Unavailable Annette, Angelica SILL WORKER Unavailable Unavailable Nanette, Angelica SILL WORKER Unavailable Unavailable Annette, Angelica SILL WORKER Unavailable Unavailable Annette, Angelica SILL WORKER Unavailable Unavailable Annette, Angelica SILL WORKER Unavailable Unavailable Annette, Angelica SILL WORKER Unavailable Unavailable Annette, Angelica SILL WORKER Unavailable Unavailable Annette, Angelica SILL WORKER Unavailable Unavailable Annette, Angelica SILL WORKER Unavailable Unavailable Anntete, Angelica SILL WORKER Unavailable Unavailable Annette, Angelica SILL WORKER Unavailable Unavailable Annette, Angelica SILL WORKER Unavailable Unavailable Annette, Angelica SILL WORKER Unavailable Unavailable Annette, Angelica SILL WORKER Unavailable Unavailable Annette, Angelica SILL WORKER Unavailable Unavailable Annette, Angelica SILL WORKER Unavailable Unavailable Annette, Angelica SILL WORKER Unavailable Unavailable Annette, Angelica SILL WORKER Unavailable Unavailable Annette, Angelica SILL WORKER Unavailable Unavailable Annette, Angelica SILL WORKER Unavailable Unavailable Annette, Angelica SILL WORKER Unavailable Unavailable Annette, Angelica SILL WORKER Unavailable Unavailable Annette, Angelica SILL WORKER Unavailable Unavailable Annette, Angelica SILL WORKER Unavailable Unavailable Annette, Angelica SILL WORKER Unavailable Unavailable Annette, Angelica SILL WORKER Unavailable Unavailable Annette, Angelica SILL WORKER Unavailable Unavailable Annette, Angelica SILL WORKER Unavailable Unavailable Annette, Angelica SILL WORKER Unavailable Unavailable Annette, Angelica SILL WORKER Unavailable Unavailable Trinidad F Renard JARRELL Unavailable [...] I GISSELL PA Unavailable Unavailable DRAZEK, I GISSLEL PA Unavailable Unavailable DRAZEK, I GISSELL PA [...] is protected by Article 27-F of the [facility] Public Health law. If you continue you may have access to information: Regarding HIV / AIDS; Provided by facilities licensed or operated by the [facility] Office of Mental Health; or Provided by the [facility] Office for People With Developmental Disabilities. If such information is present, then the following [facility] mandated warning applies: This information has been [...] law may result in a fine or penitentiary sentence or both. A general authorization for the release of medical or other information is NOT sufficient authorization for further disc losure. Family History Family Member Name Family Member Gender Family Member Status Date o f Status Description Data Source(s) Unknown Female Problem [facility] ([facility]) Unknown Unknown Encounters Encounter Providers Location Date Indications Data Source(s ) Outpatient Attender: KUNAL ryan 03/31/2021 01:15:00 PM EDT [facility] ([facility] Outpatient Attender: GISSELL WINSTON Physical Therapy 02/02/2021 0 3:15:00 PM EDT [facility] ([facility]) Outpatient Attender: NED Weber 1 07/22/2019 01:00:00 PM EST [facility] ([facility] ) Outpatient Attender: Angelica Weber 01:40:00 PM EDT [facility] ([facility] ) Outpatient Attender: Renard Weber 04/21 01:30:00 PM EDT [facility] ([facility] ) Outpatient Attender: NED Weber 0 04/14/2020 03:00:00 PM EDT [facility] ([facility] ) Outpatient Attender: Renard Weber 03/05 11:30:00 AM EDT [facility] ([facility] ) Immunizations Vaccine Date Status Description Data Source(s) COVID-19 VACC, MRNA(PFIZER)/PF 01/10/2021 12:00:00 AM EDT completed [facility] COVID-19 VACCINE Pfizer 01/09/2021 12:00:00 AM EDT completed [facility] Vaccine Series Complete: NOThis Data was Submitted to [facility] Via [facility]. Influenza, injectable, MDCK, preservative free, destiny valent 04/21/2020 01:37:00 PM EDT completed [facility]) Medications Medication Brand Name Start [...] 12:00:00 AM E DT ORAL active [facility] ([facility]) NITROFURANTOIN, MACROCRYSTALS 25 MG / Ni trofurantoin, Monohydrate 75 MG Oral Capsule [Macrobid] Macrobid 04/20/2021 12:00:00 AM EDT ORAL completed [facility] ([facility] ) NITROFURANTOIN, MACROCRYSTALS 25 MG / Ni trofurantoin, Monohydrate 75 MG Oral Capsule 100 mg NITROFURANTOIN MONOHYD/M-CRYST 04/20/2021 12:00:00 AM EDT ca psule 14 TAKE ONE CAPSULE BY MOUTH TWICE A DAY WITH FOOD FOR 7 DAYS TAKE ONE CAPSULE BY MOUTH TWICE A DAY WITH FOOD FOR 7 DAYS SOLD: 04/20/2021 [facility] 12 HR CHLORPHENIRAMINE POLISTIREX 1.6 MG [...] MAXIMUM DAILY DOSE = 10ML SOLD: 04/04/2021 [facility] 12 HR CHLORPHENIRAMINE POLISTIREX 1.6 MG /ML / HYDROCODONE POLISTIREX 2 MG/ML Extended Release Suspension Hydrocodone Polistirex/Chlorpheniramine Polistirex 04/03/2021 12:00:00 AM EDT active [facility] ([facility]) Amoxicillin 875 MG Oral Tablet Amoxicillin 03/31/2021 12:00:00 AM EDT active [facility] ([facility]) No Active Medications 03/31/2021 12:00:00 AM EDT [...] Release 04/21/2020 12:00:00 AM EDT active [facility] ([facility]) Trazodone Hydrochloride 50 MG Oral Tablet Trazodone HCL 04/21/2020 12:00:00 AM EDT ORAL active [facility] ([facility]) 12 HR CHLORPHENIRAMINE POLISTIREX 1.6 MG /ML / HYDROCODONE POLISTIREX 2 MG/ML Extended Release Suspension [Tussionex] Tussionex Pennkinetic Extended Release 04/21/2020 12:00:00 AM EDT completed [facility] ([facility]) Prednisone 10 MG Oral Tablet Prednisone 04/14/2020 12:00:00 AM EDT ORAL completed [facility] ([facility]) 10 mg 04/14/2020 [...] 04/14/2020 12:00:00 AM EDT ORAL completed [facility] ([facility]) 24 HR tolterodine tartrate 4 MG Extended Release Oral Capsule [Detrol] Detrol LA 04/14/2020 12:00:00 AM EDT ORAL active [facility] ([facility]) 250 mg 04/14/2020 12:00:00 AM EDT [...] 12:00 :00 AM EDT ORAL active [facility] ([facility]) Codeine Phosphate 2 MG/ML / Guaifenesin 20 MG/ML Oral Solution Guaifenesin-Codeine 02/11/2020 12:00:00 AM EDT ORAL com pleted [facility] ([facility]) Prednisone 10 MG Oral Tablet Prednisone 02/11/2020 12:00:00 AM EDT ORAL completed [facility] ([facility]) Ciprofloxacin 500 MG Oral Tablet Ciprofloxacin HCL 12/31/2019 12:00 :00 AM EDT ORAL completed [facility] ([facility]) Ciprofloxacin 250 MG Oral Tablet [Cipro] Cipro 12/17/2019 12:00:00 AM EDT completed [facility] ([facility]) Insurance Providers Payer name Policy type / Coverage type Policy ID Covered constitution party ID Covered constitution party's relationship to potter Policy Potter Plan Information Medicare Natl Govt Servic Medicare Primary [id number] Self [id number] Medicare Natl Govt Servic Medicare Primary [id number] Self [id number] Medicare Natl Govt Servic Medicare Primary [id number] Self [id number] Medicare Natl Govt Servic Medicare Primary [id number] Self Medicare Natl Govt Servic Medicare Primary [id number] Self [id number] Medicare Natl Govt Servic Medicare Primary [id number] Self [id number] Medicare Natl Govt Servic Medicare Primary [id number] Self [id number] MEDICARE [id number] SP [id number] A BS [facility] [id number] Self [id number] [place] 200/700 [id number] HU2 [id number] BS [facility] [id number] Self [id number] O UNAVAILABLE UNAVAILA BLE BS [facility] [id number] Self [id number] BS [facility] [id number] Self [id number] [facility] [id number] Self 20 0 BS/W/Id#Prefix/W ALL #'S Medigap Part B [id number] Self Medicare Natl Gov't Servi Medicare Primary [id number] Self MEDICARE [id number] SP [id number] [employer] [place] 200/700 [id number] SP [id number] MEDICARE C [id number] S [id number] EXCELLUS BCBS B [id number] S [id number] MEDICARE C [id number] S [id number] A BS [facility] [id number] Self [id number] [facility] [id number] Self [id number] Problems, Conditions, and Diagnoses Code Display Name Description Problem Type Effective Dates Data Source(s) 76811486 Essential hypertension Essential hypertension Problem 02/02/2021 12:00:00 AM EDT [facility] ([facility] ) Surgeries/Procedures Procedure Description Date Indications Data Source(s) OFFICE OUTPATIENT NEW 30 MINUTES 03/31/2021 12:00:00 A M EDT [facility] ([facility]) RADIOLOGIC EXAM KNEE COMPLETE 4/MORE VIEWS 02/02/2021 12:00:00 AM EDT [facility] ([facility]) OFFICE OUTPATIENT NEW 45 MINUTES 02/02/2021 12:00:00 A M EDT [facility] ([facility]) Results ID Date Data Source [id number] 04/20/2021 01:12:00 PM EDT [facility] ([facility]) Name Value Range Interpretation Code Description Data Susie rce(s) Supporting Document(s) Bacteria identified in Urine by Culture [facility] on Macrobid - will change to [facility] sees urology (had cx'd appt prior and saw doctors in [place] but no information). JW ID Date Data Source [id number] 04/20/2021 12:54:00 PM EDT [facility] ([facility]) Name Value Range Interpretation Code Description Data Susie rce(s) Supporting Document(s) Urine Color Laboratory test result [facility] ([facility]) started macrobid - sent to [facility] - Nit rate positive, renal function normal on recent check. JW Urine Appearance Laboratory test result Abnormal (applies to non-numeric results) [facility] started macrobid - sent to [facility] - Nit rate positive, renal function normal on recent check. Urine PH 8.0 units 5.0-9.0 [facility] started macrobid - sent to [facility] - Nit rate positive, renal function normal on recent check. Specific gravity of Urine 1.010 1.005-1.030 [facility] ([facility]) started macrobid - sent to [facility] - Nit rate positive, renal function normal on recent check. Urine Leukocytes Laboratory test result Abnormal (applies to non-numeric results) [facility] ([facility]) started macrobid - sent to [facility] - Nit rate positive, renal function normal on recent check. Urine Blood Laboratory test result Abnormal (applies to non-numeric results) [facility] ([facility]) started macrobid - sent to [facility] - Nit rate positive, renal function normal on recent check. Urine Protein Laboratory test result 0-0 [facility] ([facility]) started macrobid - sent to [facility] - Nit rate positive, renal function normal on recent check. Urine Nitrite Laboratory test result Abnormal (applies to non-numeric results) [facility] ([facility]) started macrobid - sent to [facility] - Nit rate positive, renal function normal on recent check. Glucose [Presence] in Urine Laboratory test result [facility] ([facility]) started macrobid - sent to [facility] - Nit rate positive, renal function normal on recent check. Urine Ketone Laboratory test result [facility] ([facility]) started macrobid - sent to [facility] - Nit rate positive, renal function normal on recent check. Bilirubin.total [Mass/volume] in Serum or Plasma Laboratory test resu lt [facility]) started macrobid - sent to [facility] - Nit rate positive, renal function normal on recent check. Urine Urobilinogen 0.2 mg/dL 0.2-1.0 [facility]) started macrobid - sent to [facility] - Nit rate positive, renal function normal on recent check. JW ID Date Data Source [id number] 03/31/2021 12:00:00 AM [facility]T [facility] Name Value Range Interpretation Code Description Data Susie rce(s) Supporting Document(s) SARS-CoV2 Rapid Antigen Negative [facility] ID Date Data Source [id number] 01/30/2021 10:30:00 AM EDT [facility]) Name Value Range Interpretation Code Description Data Susie rce(s) Supporting Document(s) Vitamin B12 Level 781 pg/mL [facility] ([facility]) VITAMIN B12 NORMAL RANGE NORMAL 247 - 911 PG/ML INDETERMINATE 211 - 246 PG/ML DEFICIENT LESS THAN 211 PG/ML Folate 9.2 ng/mL [facility] ([facility]) FOLATE NORMAL RANGE NORMAL GREATER THAN 5.4 NG/ML INDETERMINATE 3.4-5.4 NG/ML DEFICIENT LESS THAN 3.4 NG/ML ID Date Data Source [id number] 01/30/2021 10:30:00 AM EDT [facility] ([facility]) Name Value Range Interpretation Code Description Data Susie rce(s) Supporting Document(s) Ferritin [Mass/volume] in Serum or Plasma 8 ng/mL 8-252 [facility] ([facility]) ID Date Data Source [id number] 01/30/2021 10:30:00 AM EDT [facility] ([facility]) Name Value Range Interpretation Code Description Data Susie rce(s) Supporting Document(s) Iron (Fe) 34 ug/dL 50-170 [facility] ([facility]) Percent Saturation 6.8 % 13.2-45.0 [facility] Total Iron Binding Capacity 498 ug/dL 250-450 [facility] ([facility]) ID Date Data Source [id number] 01/30/2021 10:29:00 AM EDT [facility] Name Value Range Interpretation Code Description Data Susie rce(s) Supporting Document(s) Urine Color Laboratory test result [facility] ([facility]) attempted to reach her (see triage), has appt but is to get records from [place] since most of year there. Urine PH 5.0 units 5.0-9.0 [facility] attempted to reach her (see triage), has appt but is to get records from [place] since most of year there. Urine Appearance Laboratory test result Abnormal (applies to non-numeric results) [facility]) attempted to reach her (see triage), has appt but [place] most of year there. Urine Blood Laboratory test result Abnormal (applies to non-numeric results) [facility]) attempted to reach her (see triage), has appt but [place] most of year there. Urine Leukocytes Laboratory test result Abnormal (applies to non-numeric results) [facility] ([facility]) attempted to reach her (see triage), has appt but [place] most of year there. Specific gravity of Urine 1.015 1.005-1.030 [facility] ([facility]) attempted to reach her (see triage), [place] appt [place] there. Glucose [Presence] in Urine Laboratory test result [facility] ([facility]) attempted to reach her (see triage), has appt but [place] most [place] there. Urine Protein Laboratory test result 0-0 Abnormal (applies to non-numeric results) [facility] ([facility]) attempted to reach her (see triage), [place] appt but [place] there. Urine Ketone Laboratory test result [facility] ([facility]) attempted to reach her (see triage), has appt but [place] most of year there. Urine Nitrite Laboratory test result [facility] ([facility]) attempted to reach her (see triage), [place] appt but [place] there. Urine Urobilinogen 0.2 mg/dL 0.2-1.0 [facility] ([facility]) attempted to reach her (see triage), [place] appt but [place] there. Bilirubin.total [Mass/volume] in Serum or Plasma Laboratory test resu lt [facility] attempted to reach her (see triage), [place] appt but [place] there. ID Date Data Source [id number] 01/30/2021 10:29:00 AM EDT [facility]) Name Value Range Interpretation Code Description Data Susie rce(s) Supporting Document(s) Thyrotropin [Units/volume] in Serum or Plasma by Detec tion limit <= 0.05 mIU/L 1.91 uIU/mL 0.36-3.74 [facility] ([facility] ) attempted to reach her (see triage), [place] appt [place] there. ID Date Data Source [id number] 01/30/2021 10:29:00 AM EDT [facility] ([facility]) Name Value Range Interpretation Code Description Data Susie rce(s) Supporting Document(s) Urea nitrogen [Mass/volume] in Serum or Plasma 25 mg/dL 7-18 [facility] ([facility]) attempted to reach her (see triage), [place] appt [place] most [place] there. Glucose [Mass/volume] in Serum or Plasma 79 mg/dL 74-99 [facility] ([facility]) attempted to reach her (see triage), [place] appt but [place] most [place] there. Creatinine 0.8 mg/dL 0.6-1.3 [facility] attempted to reach her (see triage), [place] appt but [place] most [place] year there. Potassium [Moles/volume] in Serum or Plasma 4.2 meq/L 3.5-5.1 [facility] ([facility]) attempted to reach her (see triage), [place] appt but [place] most [place] there. Sodium [Moles/volume] in Serum or Plasma 142 meq/L 136-145 [facility] ([facility]) attempted to reach her (see triage), has appt but [place] year there. Calcium [Mass/volume] in Serum or Plasma 9.7 mg/dL 8.5-10.1 [facility] ([facility]) attempted to reach her (see triage), has appt but [place] most [place] year there. Chloride [Moles/volume] in Serum or Plasma 106 meq/L 98-107 [facility] ([facility]) attempted to reach her (see triage), has appt but [place] most [place] year there. Carbon dioxide, total [Moles/volume] in Serum or Plasma 30 meq/L 21 -32 [facility] ([facility]) attempted to reach her (see triage), has appt but [place] most [place] year there. Total Bilirubin 0.5 mg/dL 0.2-1.0 [facility] ([facility]) attempted to reach her (see triage), has appt but [place] most of year there. Alkaline phosphatase isoenzyme [Units/volume] in Serum or Pl asma 70 mg/dL 46-116 [facility] ([facility]) attempted to reach her (see triage), has appt but [place] there. Aspartate aminotransferase [Enzymatic activity/volume] in Serum or Plasma 42 U/L 15-37 [facility] ([facility] ) attempted to reach her (see triage), has appt but [place] most [place] year there. Alanine aminotransferase [Enzymatic activity/volume] in Seru m or Plasma 48 U/L 12-78 [facility] ([facility]) attempted to reach her (see triage), has appt but [place] most [place] year there. Albumin [Mass/volume] in Serum or Plasma 4.0 g/dL 3.4-5.0 [facility] ([facility]) attempted to reach her (see triage), [place] appt but [place] most [place] year there. A/G Ratio 1.08 CALC 1.00-1.90 [facility] attempted to reach her (see triage), [place] appt but [place] most [place] year there. Proteinase 3 Ab [Units/volume] in Serum 7.7 g/dL 6.4-8.2 [facility] ([facility]) attempted to reach her (see triage), [place] appt [place]. Glomerular filtration rate/1.73 sq M pre dicted among non-blacks [Volume Rate/Area] in Serum or Plasma by Creatinine-based formula (MDRD) Laboratory test result [facility] ([facility] ) attempted to reach her (see triage), has appt but [place] most [place] there. Glomerular filtration rate/1.73 sq M pre dicted among blacks [Volume Rate/Area] in Serum or Plasma by Creatinine-based formula (MDRD) Laboratory test result [facility] ([facility]) attempted to reach her (see triage), has appt but [place] most of year there. ID Date Data Source [id number] 01/30/2021 10:29:00 AM EDT [facility] ([facility]) Name Value Range Interpretation Code Description Data Susie rce(s) Supporting Document(s) Leukocytes [#/volume] in Blood by Automated count 3.9 x10*3/UL 4.1-10 .9 [facility] ([facility]) attempted to reach her (see triage), [place] appt but [place] there. Erythrocytes [#/volume] in Blood by Automated count 4.52 x10*6/UL 4.2 0-6.30 [facility] ([facility]) attempted to reach her (see triage), has appt but [place] there. Hematocrit [Volume Fraction] of Blood by Automated count 32.3 % 3 7.0-51.0 [facility] ([facility]) attempted to reach her (see triage), has appt but [place] most [place] year there. Hemoglobin [Mass/volume] in Blood 10.1 g/dL 12.0-18.0 [facility] ([facility]) attempted to reach her (see triage), has appt but [place]. MCH 22.4 pg 26.0-32.0 [facility] ([facility]) attempted to reach her (see triage), has appt but [place] most [place] year there. MCV 71.4 fL 80.0-97.0 [facility] ([facility]) attempted to reach her (see triage), has appt but [place] most [place] there. Erythrocyte distribution width [Ratio] by Automated count 16.2 % 11.6-13.7 [facility] ([facility]) attempted to reach her (see triage), has appt but [place] most [place]. MCHC 31.4 g/dL 31.0-38.0 [facility] ([facility]) attempted to reach her (see triage), has appt but [place] most [place] year there. Platelets [#/volume] in Blood by Automated count 254 x10*3/UL 140-440 [facility] ([facility]) attempted to reach her (see triage), has appt but [place] most [place] year there. MPV 9.7 FL 7.8-11.0 [facility] attempted to reach her (see triage), has appt but [place]. Lymph % 36.3 % 10.0-58.5 [facility] attempted to reach her (see triage), has appt but [place] most of year there. Mid % 8.9 % 1.7-9.3 [facility] attempted to reach her (see triage), has appt but [place] most [place] year there. Neut % 54.8 % 37.0-92.0 [facility] attempted to reach her (see triage), has appt but [place] most [place] year there. Lymph # 1.4 x10*3/UL 0.6-4.1 [facility] ([facility]) attempted to reach her (see triage), [place] since most of year there. Mid # 0.4 x10*3/UL 0.1-0.6 [facility] ([facility]) attempted to reach her (see triage), has appt but is to get records from [place] since most of year there. Neut # 2.1 x10*3/UL 2.0-7.8 [facility] ([facility]) attempted to reach her (see triage), has appt but is to get records from [place] since most of year there. ID Date Data Source [id number] 05/22/2020 02:04:00 PM EST [facility] ([facility]) Name Value Range Interpretation Code Description Data Susie rce(s) Supporting Document(s) Bacteria identified in Urine by Culture Laboratory test result [facility] ([facility]) FULL REPORT IN LAB NOTES (eCW and [facility] ). NO GROWTH CLINICAL SIGNIFICANCE 1 ORGANISM ID Date Data Source [id number] 05/22/2020 02:04[facility]00 PM [facility] Name Value Range Interpretation Code Description Data Susie rce(s) Supporting Document(s) Urine Appearance Laboratory test result [facility]) Urine Color Laboratory test result [facility] T ([facility]) Urine PH 6.0 units 5.0-9.0 [facility] Urine Leukocytes Laboratory test result Abnormal (applies to non-numeric results) [facility] Specific gravity of Urine 1.020 1.005-1.030 [place] [facility] ([facility]) Urine Blood Laboratory test result [facility]) Glucose [Presence] in Urine Laboratory test result [facility]) Urine Protein Laboratory test result 0-0 Abnormal (applies to non-numeric results) [facility] Urine Ketone Laboratory test result MEDE NT ([facility]) Urine Urobilinogen 0.2 mg/dL 0.2-1.0 [facility] ([facility] Urine Nitrite Laboratory test result [facility] ([facility]) Bilirubin.total [Mass/volume] in Serum or Plasma Laboratory test resu lt [facility] ([facility]) ID Date Data Source [id number] 05/16/2020 01:44:00 PM EDT [facility] ([facility] Name Value Range Interpretation Code Description Data Susie rce(s) Supporting Document(s) Bacteria identified in Urine by Culture [facility] FULL REPORT IN LAB NOTES ([facility]CW and [facility] ). SPECIMEN APPEARS CONTAMINATED ID Date Data Source [id number] 05/16/2020 01:44:00 PM EDT [facility] ([facility] Name Value Range Interpretation Code Description Data Susie rce(s) Supporting Document(s) Urine PH 6.0 units 5.0-9.0 [facility] Urine Color Laboratory test result Abnormal (applies to non-numeric results) [facility] Urine Appearance Laboratory test result Abnormal (applies to non-numeric results) [facility] Specific gravity of Urine 1.025 1.005-1.030 [place] [facility] ([facility]) Urine Blood Laboratory test result Abnormal (applies to non-numeric results) [facility] ([facility]) Urine Protein Laboratory test result 0-0 Abnormal (applies to non-numeric results) [facility] ([facility]) Urine Leukocytes Laboratory test result Abnormal (applies to non-numeric results) [facility] ([facility]) Glucose [Presence] in Urine Laboratory test result [facility] ([facility]) Urine Nitrite Laboratory test result [facility] ([facility]) Urine Ketone Laboratory test result MEDE NT ([facility]) Urine Urobilinogen 0.2 mg/dL 0.2-1.0 [facility] ([facility]) Bilirubin.total [Mass/volume] in Serum or Plasma [facility] ID Date Data Source [id number] 04/21/2020 01:25:00 PM EDT [facility] ([facility]) Name Value Range Interpretation Code Description Data Susie rce(s) Supporting Document(s) Triglyceride [Mass/volume] in Serum or Plasma 83 mg/dL 30-150 [facility] ([facility]) Cholesterol [Mass/volume] in Serum or Plasma 150 mg/dL 131-200 [facility] ([facility]) Cholesterol in HDL [Mass/volume] in Serum or Plasma 60 mg/dL 35-60 [facility] Cholesterol in LDL [Mass/volume] in Serum or Plasma by calcu lation 73 CALC 50-159 [facility] ([facility]) ID Date Data Source [id number] 04/21/2020 01:25:00 PM EDT [facility] ([facility] Name Value Range Interpretation Code Description Data Susie rce(s) Supporting Document(s) Glucose [Mass/volume] in Serum or Plasma 179 mg/dL 74-99 [facility] ([facility]) 100-125 mg/dL PRE-DIABETES/FASTING >126 mg/dL DIABETES/FASTING Urea nitrogen [Mass/volume] in Serum or Plasma 25 mg/dL 7-18 [facility] ([facility]) Creatinine 1.0 mg/dL 0.6-1.3 [facility] ([facility]) Sodium [Moles/volume] in Serum or Plasma 141 meq/L 136-145 [facility] ([facility]) Potassium [Moles/volume] in Serum or Plasma 4.2 meq/L 3.5-5.1 [facility] ([facility]) Chloride [Moles/volume] in Serum or Plasma 104 meq/L 98-107 [facility] ([facility]) Carbon dioxide, total [Moles/volume] in Serum or Plasma 26 meq/L 21 -32 [facility] ([facility]) Total Bilirubin 0.4 mg/dL 0.2-1.0 [facility] ([facility]) Calcium [Mass/volume] in Serum or Plasma 9.2 mg/dL 8.5-10.1 [facility] ([facility]) Alkaline phosphatase isoenzyme [Units/volume] in Serum or Pl asma 60 mg/dL 46-116 [facility] ([facility]) Alanine aminotransferase [Enzymatic activity/volume] in Seru m or Plasma 53 U/L 12-78 [facility] ([facility]) Albumin [Mass/volume] in Serum or Plasma 3.9 g/dL 3.4-5.0 [facility] ([facility]) Aspartate aminotransferase [Enzymatic activity/volume] in Serum or Plasma 44 U/L 15-37 [facility] ([facility] ) Glomerular filtration rate/1.73 sq M pre dicted among non-blacks [Volume Rate/Area] in Serum or Plasma by Creatinine-based formula (MDRD) 54 mL/min [facility] ([facility]) Proteinase 3 Ab [Units/volume] in Serum 7.7 g/dL 6.4-8.2 [facility] ([facility]) A/G Ratio 1.03 CALC 1.00-1.90 [facility]) Glomerular filtration rate/1.73 sq M pre dicted among blacks [Volume Rate/Area] in Serum or Plasma by Creatinine-based formula (MDRD) Laboratory test result [facility] ([facility]) <content>CHRONIC KIDNEY DISEASE STAGING PER NKF</content>
<content></content>
<content>STAGE I & II GFR >= 60 NORMAL TO MILDLY DECREASED</content>
<content>STAGE III GFR 30-59 MODERATELY DECREASED</content>
<content>STAGE IV GFR 15-29 SEVERELY DECREASED</content>
<content>STAGE V GFR <15 VERY LITTLE GFR LEFT</content>
<content>ESRD GFR <15 ON WELFARE WORKER</content>
<content></content> ID Date Data Source [id number] 04/14/2020 02:51:00 PM EDT [facility] ([facility]) Name Value Range Interpretation Code Description Data Susie rce(s) Supporting Document(s) Urine Appearance Laboratory test result Abnormal (applies to non-numeric results) [facility] ([facility]) Urine PH 7.0 units 5.0-9.0 [facility]) Urine Color Laboratory test result [facility] T ([facility]) Specific gravity of Urine 1.015 1.005-1.030 [place] [facility] ([facility]) Urine Blood Laboratory test result Abnormal (applies to non-numeric results) [facility] ([facility]) Urine Leukocytes Laboratory test result Abnormal (applies to non-numeric results) [facility] ([facility]) Urine Protein Laboratory test result 0-0 Abnormal (applies to non-numeric results) [facility] ([facility]) Glucose [Presence] in Urine Laboratory test result [facility] ([facility]) Urine Nitrite Laboratory test result [facility] ([facility]) Bilirubin.total [Mass/volume] in Serum or Plasma Laboratory test resu lt [facility] ([facility]) Urine Ketone Laboratory test result [facility]E NT ([facility]) Urine Urobilinogen 0.2 mg/dL 0.2-1.0 [facility] ([facility]) Procedure Social History No Information Vital Signs ID Date Data Source [id number] Name Value Range Interpretation Code Description Data Source(s) Body height 64 [in_i] 64 [in_i] [facility] ([facility]) 5'4" Systolic blood pressure 153 mm[Hg] 153 mm[Hg] M [facility] ([facility]) Diastolic blood pressure 90 mm[Hg] 90 mm[Hg] [facility] Heart rate 64 /min 64 /min [facility]) Respiratory rate 6 /min 6 /min [facility]) Oxygen saturation in Arterial blood by Pulse oximetry 96 % 96 % [facility]) Body temperature 98.4 [degF] 98.4 [degF] [facility]) Body weight 145.00 [lb_av] 145.00 [lb_av] [facility] ([facility], [facility]) Body mass index (BMI) [Ratio] 24.9 kg/m2 24.9 k g/m2 [facility] ([facility], [facility]) Body temperature 96.9 [degF] 96.9 [degF] [facility] ([facility] ) Body height 63 [in_i] 63 [in_i] [facility] ([facility] ) 5'3" Body weight 148.00 [lb_av] 148.00 [lb_av] [facility] T ([facility] ) Body mass index (BMI) [Ratio] 26.2 kg/m2 26.2 k g/m2 [facility] ([facility] ) Systolic blood pressure 140 mm[Hg] 140 mm[facility]Hg[facility] Diastolic blood pressure 70 mm[Hg] 70 mm[Hg] [facility] Heart rate 75 /min 75 /min [facility] Body height 65 [in_i] 65 [in_i] [facility] ([facility]) 5'5" Body weight 148.00 [lb_av] 148.00 [lb_av] [facility] T ([facility]) Body mass index (BMI) [Ratio] 24.6 kg/m2 24.6 k g/m2 [facility] ([facility]) Oxygen saturation in Arterial blood by Pulse oximetry 96 % 96 % [facility] ([facility]) Air Body mass index (BMI) [Ratio] 24.6 kg/m2 24.6 k g/m2 [facility] ([facility]) Systolic blood pressure 142 mm[Hg] 142 mm[Hg] M EDENT ([facility]) RT Arm Diastolic blood pressure 68 mm[Hg] 68 mm[Hg] [facility] ([facility]) RT Arm Heart rate 80 /min 80 /min [facility] ([facility]) Body height 65 [in_i] 65 [in_i] [facility] ([facility]) 5'5" Body weight 148.00 [lb_av] 148.00 [lb_av] [facility] T ([facility]) Systolic blood pressure 126 mm[Hg] 126 mm[Hg] M EDENT ([facility]) Diastolic blood pressure 770 mm[Hg] 770 mm[Hg] [facility] ([facility]) Body height 65 [in_i] 65 [in_i] [facility] ([facility]) 5'5" Heart rate 78 /min 78 /min [facility] ([facility]) Body weight 147.00 [lb_av] 147.00 [lb_av] [facility] T ([facility]) Body mass index (BMI) [Ratio] 24.5 kg/m2 24.5 k g/m2 [facility] ([facility]) Heart rate 73 /min 73 /min [facility] ([facility]) Systolic blood pressure 118 mm[Hg] 118 mm[facility]Hg] [facility] Diastolic blood pressure 70 mm[Hg] 70 mm[Hg] [facility] ([facility]) Body weight 146.00 [lb_av] 146.00 [lb_av] [facility] T ([facility]) Body temperature 98.2 [degF] 98.2 [degF] [facility] ([facility]) Body height 65 [in_i] 65 [in_i] [facility] ([facility]) 5'5" Body mass index (BMI) [Ratio] 24.3 kg/m2 24.3 k g/m2 [facility] ([facility]) Systolic blood pressure 126 mm[Hg] 126 mm[Hg] M EDENT ([facility]) Diastolic blood pressure 72 mm[Hg] 72 mm[Hg] [facility] ([facility]) Heart rate 78 /min 78 /min [facility] ([facility]) Body height 65 [in_i] 65 [in_i] [facility] 5'5" Body weight 146.00 [lb_av] 146.00 [lb_av] [facility] T ([facility]) Body mass index (BMI) [Ratio] 24.3 kg/m2 24.3 k g/m2 [facility]
[2021-05-02] MEDS ORDERED: ACETAMINOPHEN TAB 650MG DOSE (2X325MG) PO PRN (02:25)
[2021-05-02] MEDS ORDERED: MAALOX 30 ML SUSP *UDC PO PRN (02:25)
[2021-05-02] MEDS ORDERED: MOM 30ML SUSPENSION UDC PO PRN (02:25)
[2021-05-02] MEDS ORDERED: DICLOFENAC EPOLAMINE 1.3 % PATCH TOP ONE (02:25)
[2021-05-02] MEDS ORDERED: MORPHINE 2 MG/ML 1ML VIAL (J2270) IV PRN (02:25)
[2021-05-02] MEDS ORDERED: LIDOCAINE 5% (LIDODERM) PATCH TD ONE (02:25)
--- NOTE | 2021-05-02 03:02 | HPEPDOC ---
[facility] Medical History & Physical Date of Admission May 02, 2021 Date of Service: May 02, 2021 Primary Care Physician: JM NGUYEN M.D. Other Provider Dr. Irma Pisano, urology History and Physical CHIEF COMPLAINT: LLE pain HISTORY OF PRESENT ILLNESS: is a lesli 76yo female with notable PMHx of HTN, recurrent UTIs, and OA who presented to the [facility] ED on the evening of 05/01/21 with a chief complaint of left lower extremity pain. The patient's pain began on Tuesday, 04/27 and she describes the pain as a constant burning over the anterior left thigh that becomes a sharp /10 pain when she ambulates. The pain is present basically from the patella up to the ASIS and she denies any associated gait instability, numbness, tingling, or recent falls. She reports this type of pain is similar to one she experienced in the same leg 3 years ago; although that ti me the distribution of the pain extended more inferiorly to the mid yancey. When she presented to the ED for that pain 3 years ago she received injections of Solu-Medrol and Toradol which helped somewhat, but the intervention that ultimately helped resolve the pain was physical therapy. Of note, the patient did have a recent UTI earlier this month and on follow-up with her outpatient neurologist (Dr. Pisano) on 04/28, she complained of the leg pain and Dr. Pisano prescribed tramadol, prednisone, and acetaminophen combination. To this point, those pain medications/anti-inflammatories have not done much to help lessen her pain and so she subsequently decided to present to the ED. In the ED, the patient was significantly hypertensive with a zenith blood pressure of 242/110. A one-time 10 mg IV hydralazine was administered by the ED provider which did not improve blood pressure significantly. Of note, she was afebrile with a heart rate ranging between 60-110 and had a mild leukocytosis (WBC 10.6) without absolute neutrophilia. A left hip x-ray showed moderate to severe degenerative changes of the left hip joint. A lumbar spine x-ray showed dextroscoliosis of the L-spine with multilevel degenerative disc disease but no acute abnormality. In addition a CT head without contrast was ordered showing no acute intracranial abnormality and only chronic microvascular ischemic changes. Of significant note, roughly 3 hours after being admitted the hospitalist night team was contacted about sustained heart rates in the 140s to 180s with accompanying irregular rhythm on monitoring. A stat EKG was done which confirmed atrial fibrillation with rapid ventricular response. Speaking with the patient she has no known history of any prior arrhythmias and so this represents a new acute onset of atrial fib. Patient was administered a one-time oral 25 mg Lopressor dose as well as the 3 series of 5 mg IV Lopressor. Patient also was switched over to weight-based dosing Lovenox and an echocardiogram was done as was stat labs (cardiac enzymes, TSH, CBC, metabolic panel). PAST MEDICAL HISTORY: Hypertension; follows with a shear operator in [place], takes valsartan as outpatient Recurrent UTIs; most recent UTI confirmed on culture 04/22/2021 growing Klebsiella and was treated with 5 days of Macrobid Osteoarthritis PAST SURGICAL HISTORY: Hysterectomy SOCIAL HISTORY: Patient lives half the year here in [place] and the other half of the year in [place]. She has a significant other. She did have a son when she was 17 who unfortunately in a motor vehicle accident 1995. 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 She denies any current or former use of tobacco products, alcohol, or illicit/IV drugs. Of note, she is fully vaccinated against the novel coronavirus. FAMILY HISTORY: Father: ; lung cancer in the setting of a longtime smoker Mother: ; unknown reasons, possibly related to infection of her knee Sister: Living; CAD status post triple bypass within the last year Son: after a motor vehicle accident in 1995; prior to that he had no known significant medical issues. ALLERGIES: Please see below. REVIEW OF SYSTEMS: CONSTITUTIONAL: Denies fever, chills, night sweats, or recent unintentional change in weight HEENT: Denies any recent vision or hearing changes. CARDIOVASCULAR: Denies chest pain, chest pressure, or palpitations RESPIRATORY: Denies shortness of breath, pleuritic chest pain, or cough GASTROINTESTINAL: Denies abdominal pain, nausea, vomiting, diarrhea, or blood in stool GENITOURINARY: Denies dysuria or hematuria MUSCULOSKELETAL: Reports left lower extremity pain as extensively described in HPI NEUROLOGICAL: Reports having a headache when she presented to the ED which has resolved at the time of our evaluation. Denies any recent bowel or bladder incontinence; also denies any saddle anesthesia, gait instability or recent falls as well as denying any numbness or mwtz-wog-ybswezk sensation of the extremities. PSYCHIATRIC: Reports some anxiety regarding her current status HEMATOLOGIC: Denies any recent easy bleeding or bruising LYMPHATIC: Denies any new lumps or bumps HOME MEDICATIONS: Please see below. PHYSICAL EXAMINATION: VITAL SIGNS: Temperature 97.1, pulse 82, respiratory rate 20, blood pressure 215/100, pulse oximetry 95% on room air. GENERAL APPEARANCE: Very pleasant elderly female lying upright in ED bed. She at times appears to be in mild discomfort but does not appear to be in any acute distress. Alert and oriented x3. HEENT: Normocephalic, atraumatic. Noninjected, anicteric sclera. No significant conjunctival pallor. EOMI. PERRLA. Oral cavity: Mildly dry mucous membranes with no pharyngeal erythema or exudate appreciated. Some visible signs of upper dentition work. Neck: No lymphadenopathy appreciated. Trachea midline CARDIOVASCULAR: Regular rate, regular rhythm. Normal S1, S2. There is a 2/6 systolic murmur best described as a crescendo-decrescendo best heard at the right second intercostal space. 2+ radial and posterior tibial pulses bilaterally. Adequate capillary refill LUNGS: Clear to auscultation bilaterally with no appreciate adventitious breath sounds. Symmetric chest expansion with no visible signs of accessory muscle use. Breathing room air. No conversational dyspnea. ABDOMEN: Soft, nontender nondistended. Normoactive to hyperactive bowel sounds present. There is a well-healed vertical incision scar infraumbilically. No guarding or rigidity and no hepatosplenomegaly or palpable masses appreciated MUSCULOSKELETAL: 5/5 muscle strength of upper and lower extremities bilaterally. Provocation of pain with left hip extension; there was no pain elicited with left hip internal or external rotation nor on logroll test. EXTREMITIES: Bilateral lower extremities are free of pitting edema. The feet are cool to the touch. No signs of clubbing or cyanosis. NEUROLOGICAL: No gross focal neurologic deficits appreciated. Responding appropriately to all questions and commands. Alert and oriented x3. Sensation of bilateral lower extremities is intact to light touch. Negative Babinski reflex. Nondysarthric speech. PSYCHIATRIC: Very pleasant mood that at times is anxious. Appropriate appearing affect. LABORATORY DATA: Please see below. IMAGING: Left hip anterior posterior/lateral x-ray, 05/01/2021 FINDINGS: Bones/joints: Moderate to severe degenerative changes of the left hip joint. No acute fracture. No dislocation. Soft tissues: Unremarkable. IMPRESSION: Moderate to severe degenerative changes of the left hip joint. Lumbar spine x-ray, 05/01/2021 FINDINGS: Bones/joints: Scoliosis of the lumbar spine with convexity to the right. Multilevel degenerative disc disease. Vertebral heights are maintained. No spondylolisthesis. Soft tissues: Unremarkable. IMPRESSION: No acute abnormality. CT head without contrast, 05/01/2021 FINDINGS: Brain: There are mild periventricular and subcortical lucencies consistent with chronic microvascular ischemic changes. The chew-white differentiation is maintained. No hemorrhage. No edema. Cerebral ventricles: No ventriculomegaly. Paranasal sinuses: Visualized sinuses are unremarkable. No fluid levels. Mastoid air cells: Visualized mastoid air cells are well aerated. Bones/joints: Unremarkable. No acute fracture. Soft tissues: Unremarkable. IMPRESSION: No acute intracranial abnormality. Chronic microvascular ischemic changes. MICROBIOLOGY: Please see below. ASSESSMENT & PLAN: This is a 76yo female w/ notable h/o HTN, recurrent UTIs, and OA who presented to the ED on 05/01 complaining of five days of LLE pain that was not improved with outpt tramadol, acetaminophen, and prednisone. She had hypertensive urgency in the ED most likely secondary to pain and anxiety and subsequently d eveloped new onset atrial fibrillation soon after admission. #Hypertensive urgency i/s/o essential HTN - likely 2/2 acute pain and associated anxiety -Soon after presentation the ED, zenith blood pressure of 242/110; likely secondary left lower extremity pain and anxiety -ED administered one-time 10 mg IV hydralazine that did not have significant impact on the pressures; admitting team ordered one-time dose of Vasotec which helped somewhat -Upon admission, scheduled labetalol with holding parameters IV was ordered; home valsartan was continued; as needed hydroxyzine for anxiety -Treating pain from an anti-inflammatory standpoint as described below, which will hopefully improve pressures once pain is better controlled -Telemetry #Acute pain of left lower extremity - likely 2/2 osteoarthritis of left hip joint -Patient has had pain for the past 5 days (since 04/27) that has not been c ontrolled since being prescribed outpatient prednisone, tramadol, or acetaminophen -Symptoms are reminiscent of a period of time 3 years ago when she got some improvement with Solu-Medrol and Toradol shots in the ED but ultimately had complete resolution after physical therapy -Due to her symptoms as described in HPI, pain regimen devised based on anti- inflammatory approach: -Voltaren patch, lidocaine patch, as needed ice application; also prn k pad as this has given some benefit for concurrent back pain in past and prn IV morphine for moderate to severe pain -Patient would likely benefit once pain is acutely controlled with physical therapy and ultimately evaluation for orthopedics for possible need for left total hip arthroplasty #New acute onset atrial fibrillation with rapid ventricular response -This is most likely secondary to increased catecholamine release related to sig nificant left lower extremity pain and associated anxiety -patient is afebrile with no white count so infectious process is less likely -Had been in hypertensive urgency upon presentation which ultimately was controlled after IV labetalol dose; subsequently developed RVR and A. fib -EKG was obtained showing A. fib with RVR and patient was subsequently given a one-time oral dose of 25 Lopressor as well as a 5 mg IV Lopressor series of 3 administrations -After the oral dose and one 5 mg IV dose of Lopressor around 6 AM, patient's heart rate became consistently controlled around 90 bpm -Patient's anticoagulation was switched to weight-based Lovenox based on chads vasc score of 4; echocardiogram ordered along with TSH -Cardiac markers as well as lab work was ordered to assess for possible concurrent etiologies/pathologies #DVT prophylaxis: Weight-based Lovenox in the setting new acute onset A. fib with RVR and a chads vasc score of 4. CODE STATUS: Full code Disposition: Pending pain control and hemodynamic stability in the setting of A. fib with RVR and recent hypertensive urgency. Laboratory Data Labs 24H Laboratory Tests 2 05/01/21 22:28: Immature Granulocyte % (Auto) 0.5, Neutrophils (%) (Auto) 73.0H, Lymphocytes (%) (Auto) 18.8L, Monocytes (%) (Auto) 7.4, Eosinophils (%) (Auto) 0.1, Basophils (%) (Auto) 0.2, Neutrophils # (Auto) 7.8, Lymphocytes # (Auto) 2.0, Monocytes # (Auto) 0.8, Eosinophils # (Auto) 0.0, Basophils # (Auto) 0.0, Nucleated Red Blood Cells % (auto) 0.0, Anion Gap 5L, Glomerular Filtration Rate > 60.0, Calcium Level 9.4, Magnesium Level 2.1 05/01/21 23:33: Coronavirus (COVID-19)(PCR) NEGATIVE, Influenza Type A (RT-PCR) NEGATIVE, Influenza Type B (RT-PCR) NEGATIVE, Respiratory Syncytial Virus (PCR) NEGATIVE 05/01/21 23:52: POC Troponin I (Misc) 0.00 CBC/BMP Laboratory Tests 05/01/21 22:28 Home Medications Scheduled Tramadol HCl (Tramadol HCl) 50 Mg Tab, 50 MG PO BID Valsartan (Valsartan) 40 Mg Tablet, 40 MG PO BID Scheduled PRN Acetaminophen (Acetaminophen ER) 650 Mg Tablet.er, 1,000 MG PO for PAIN LEVEL 1- 4 Miscellaneous Medications [Med Rec Comment] PATIENT STATES SHE TAKES SOMETHING FOR HER STOMACH BUT CAN'T RECALL WHAT IT IS CALLED., NOTHING IN EXTERNAL FOR THIS Allergies Coded Allergies: No Known Allergies (Unverified , 06/01/17) GME ATTESTATION GME ATTESTATION My faculty preceptor for this patient encounter was physically present during the encounter and was fully available. All aspects of the patient interview, examination, medical decision making process, and medical care plan development were reviewed and approved by the faculty preceptor. The faculty preceptor is aware and concurs with the plan as stated in the body of this note and will attest to such by his/her cosignature. ATTENDING NOTE TIME OF SERVICE 230am Ms. Collado is a 76 yr old who presented w left hip pain and will be admitted for HTN Urgency. we will manage her HTN & ask the day time team to consult Ortho for inter-articular steroid injections rest per 's H&P MICHELLE ALLEN D.O. May 02, 2021 03:02 JENNIFER JENSEN MD May 02, 2021 05:07
[2021-05-02] MEDS ORDERED: LABETALOL 100MG/20ML VIAL IV SCH (04:00)
[2021-05-02] MEDS ORDERED: LABETALOL 100MG/20ML VIAL IV PRN (04:10)
[2021-05-02] MEDS ORDERED: METOPROLOL TART 25 MG TABLET PO ONE (05:20)
[2021-05-02] MEDS: METOPROLOL 5 MG/5 ML VIAL IV SCH ×3 (05:25→05:39)
[2021-05-02 06:31] LABS: BASO # 0.1 10^3/uL (0.0-0.2); BASO % 0.6 % (0.0-1.0); EOS # 0.1 10^3/uL (0.0-0.5); EOS % 0.7 % (0.0-3.0); HEMATOCRIT 37.1 % (36.0-47.0); HEMOGLOBIN 11.2 g/dl (12.0-15.5); LYMPH # 4.2 10^3/uL (1.5-5.0); MEAN CORPUSCULAR HEMOGLOBIN 22.8 pg (27.0-33.0); MEAN CORPUSCULAR HGB CONC 30.2 g/dl (32.0-36.5); MEAN CORPUSCULAR VOLUME 75.6 fl (80.0-96.0); MONO # 1.3 10^3/uL (0.0-0.8); MONO % 9.1 % (2.0-8.0); NEUTROPHILS # 8.7 10^3/uL (1.5-8.5); NEUTROPHILS % 60.3 % (36.0-66.0); PLATELET COUNT, AUTOMATED 444 10^3/uL (150-450); RED BLOOD COUNT 4.91 10^6/uL (4.00-5.40); WHITE BLOOD COUNT 14.4 10^3/uL (4.0-10.0)
[2021-05-02 06:33] LABS: HEMATOCRIT 38.2 % (36.0-47.0); HEMOGLOBIN 11.3 g/dl (12.0-15.5); MEAN CORPUSCULAR HEMOGLOBIN 22.6 pg (27.0-33.0); MEAN CORPUSCULAR HGB CONC 29.6 g/dl (32.0-36.5); MEAN CORPUSCULAR VOLUME 76.4 fl (80.0-96.0); PLATELET COUNT, AUTOMATED 457 10^3/uL (150-450); WHITE BLOOD COUNT 14.2 10^3/uL (4.0-10.0)
[2021-05-02 06:51] LABS: ALBUMIN 3.5 GM/DL (3.2-5.2); ALT/SGPT 54 U/L (12-78); BILIRUBIN,TOTAL 0.5 MG/DL (0.2-1.0); BLOOD UREA NITROGEN 23 MG/DL (7-18); CALCIUM LEVEL 9.8 MG/DL (8.8-10.2); CARBON DIOXIDE LEVEL 25 MEQ/L (21-32); CHLORIDE LEVEL 106 MEQ/L (98-107); CREATININE FOR GFR 0.82 MG/DL (0.55-1.30); GLOMERULAR FILTRATION RATE > 60.0 (>39); GLUCOSE, FASTING 110 MG/DL (70-100); POTASSIUM SERUM 3.5 MEQ/L (3.5-5.1); SODIUM LEVEL 140 MEQ/L (136-145); TOTAL PROTEIN 7.5 GM/DL (6.4-8.2)
[2021-05-02 06:55] LABS: ALBUMIN 3.6 GM/DL (3.2-5.2); ALT/SGPT 54 U/L (12-78); BILIRUBIN,TOTAL 0.4 MG/DL (0.2-1.0); BLOOD UREA NITROGEN 23 MG/DL (7-18); CALCIUM LEVEL 9.6 MG/DL (8.8-10.2); CARBON DIOXIDE LEVEL 25 MEQ/L (21-32); CHLORIDE LEVEL 108 MEQ/L (98-107); CK-MB VALUE MASS 1.9 NG/ML (<3.6); CPK CREATINE PHOSPHOKINASE 45 U/L (26-192); FREE T4 1.25 NG/DL (0.76-1.46); GLOMERULAR FILTRATION RATE > 60.0 (>39); GLUCOSE, FASTING 109 MG/DL (70-100); MB/CK RELATIVE INDEX 4.22 (< OR =4); POTASSIUM SERUM 3.5 MEQ/L (3.5-5.1); SODIUM LEVEL 141 MEQ/L (136-145); TOTAL PROTEIN 7.4 GM/DL (6.4-8.2); TROPONIN I 0.02 NG/ML (< 0.10)
[2021-05-02] MEDS ORDERED: ENOXAPARIN 40MG/0.4ML SYRINGE (J1650 PER 10MG) SC SCH ×2 (07:00→09:00)
[2021-05-02 07:28] LABS: ATYPICAL LYMPH 1 % (0-5); BASOPHILS 1 % (0-1); EOSINOPHILS 1 % (0-3); LYMPHOCYTES 34 % (16-44); MONOCYTES 4 % (0-5); NEUTROPHILS 59 % (28-66)
[2021-05-02 07:29] LABS: ANISOCYTOSIS 1+; MICROCYTOSIS 1+; PLATELET ESTIMATE INCREASED (NORMAL)
[2021-05-02 07:30] LABS: SCHISTOCYTES 1+; STOMATOCYTES 1+
[2021-05-02 07:31] LABS: OVALOCYTES 1+; POLYCHROMASIA 1+
--- NOTE | 2021-05-02 08:09 | ECGEPIP ---
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
[2021-05-02 08:28] LABS: FERRITIN 10 NG/ML (8-252); IRON (FE) 18 UG/DL (50-170); PERCENT SATURATION 3.7 % (13.2-45.0); TOTAL IRON BINDING CAPACITY 490 UG/DL (250-450)
[2021-05-02] MEDS: ENOXAPARIN 60MG/0.6ML SYRINGE (J1650 PER 10MG) SC SCH ×2 (09:00→18:10)
[2021-05-02] MEDS ORDERED: VALSARTAN 40MG TABLET (DIOVAN) PO SCH (09:00)
--- NOTE | 2021-05-02 14:50 | ECHO ---
ECHOCARDIOGRAM DATE OF PROCEDURE: 05/02/2021 Age: 76 Gender: Female Height: 63 inches Weight: 142 pounds Body Surface Area: 1.67 m2 PATIENT LOCATION: Inpatient, progressive care unit (PCU), room 3217. REFERRING PROVIDER: Odilia Ortiz M.D. INDICATION: New onset atrial fibrillation. Heart murmur. Hypertension. MEASUREMENTS: 2D Measurements: RV - 2.8 cm LV - 3.8 cm Septum 1.3 sm Posterior wall 1.3 sm Aortic root 3.1 cm Ascending aorta 3.8 cm LA - 4.3 cm LVEF 75% Doppler Measurements: AV - 2.55 m/sec LVOT - 1.1 m/sec LVOT diameter 2.0 cm Mean AV systolic gradient 14 mmHg Dimensionless index 0.44 MV-E 111 Early mitral deceleration time 230 msec E prime medial 7.3 E prime lateral 13.2 Average E/E ratio 10.8/PCWP - 15.3 mmHg PV 0.8 m/sec Pulmonary artery acceleration time 108 msec PAST 34 mmHg IVC - 1.5 cm COMMENTS: Underlying atrial fibrillation with controlled ventricular response. Somewhat technically challenging study in light of the patient's body habitus, but diagnostically useful information was still obtained. M-mode and 2-dimensional echocardiography was performed with pulse, continuous wave, color flow and tissue Doppler studies. Mild concentric left ventricular hypertrophy with hyperkinetic wall motion. Mildly dilated left atrium with current estimated mean left atrial pressure upper limits of normal. Normal right heart chamber sizes and motion with mild pulmonary hypertension. Normal inferior vena cava (IVC) size and collapse against an elevated central venous pressure. Normal aortic root size, but slightly dilated ascending aorta. Mild calcific aortic stenosis with trace insufficiency. Mild degenerative changes of the mitral valvular apparatus without inflow tract obstruction and only mild insufficiency. Normal appearing tricuspid valve with at least mild to moderate insufficiency. No visualized intracardiac mass or pericardial effusion.
--- NOTE | 2021-05-02 15:32 | IPNPDOC ---
Subjective Date Seen The patient was seen on 05/02/21. Subjective Chief Complaint/HPI Patient was seen and examined at bedside this morning. She continues to complain of her right thigh pain which started 04/27. She reported having similar complaints approximately 3 years ago and received Solu-Medrol injection for her arthritis which helped relieve the pain. This, she had no new complaints. She denies headaches, blurry vision, chest pain, shortness of breath, abdominal pain, nausea, vomiting, problems with urination and bowel movements. Objective Physical Examination Other physical findings General: Lying in bed, no acute distress Head/Neck/Throat: Trachea midline, mucous membranes moist Eyes: Sclera anicteric, PERRLA Thorax: Normal respiratory effort on room air, lungs clear to auscultation bilaterally, no wheezes/rales/rhonchi Cardiovascular: Normal rate, regular rhythm, normal S1, S2; no S3, S4, rubs/gallops/murmurs Abdomen: Bowel sounds present, soft/nontender/nondistended Genitourinary: No CVA tenderness, no Sterling in place Musculoskeletal: Right lower extremity pain reported from her groin region into the thigh Skin: Warm, dry Neurologic: AAOx3, speech fluent and goal-directed, no focal deficits, grossly intact Assessment /Plan Assessment 76-year-old female initially presented in hopes of getting a Solu-Medrol/Xyloca ine shot for her right leg arthritis. However, was noted to have hypertensive urgency as well as atrial fibrillation. #Hypertensive urgency -This has resolved. We will resume patient's ambulatory antihypertensive medications with holding parameters. #New onset atrial fibrillation with RVR -We will start patient on metoprolol. [id number] score 4, she will be started on apixaban 5 mg twice daily. #Osteoarthritis -She was prescribed prednisone, tramadol, and acetaminophen as outpatient but found minimal relief of her pain. We will touch base with orthopedic team to see if patient can get a do injection done while she is hospitalized, otherwise she will need to follow-up as outpatient. -Physical therapy during hospitalization -Tylenol for pain #Microcytic anemia -Iron panel is consistent with iron deficiency anemia. H&H remained stable, further work-up was encouraged as outpatient with her primary care physician. #Subclinical hypothyroidism -Repeat TSH in 4 to 6 weeks with primary care physician #Transaminitis -AST slightly elevated. Abdomen is benign. Patient was asked to follow-up with her primary care physician for further evaluation. #DVT prophylaxis -Offered the Niraliis. Plan/VTE VTE Prophylaxis Ordered?: Yes VS, I&O, 24H, Fishbone Vital Signs/I&O Vital Signs Date Time Temp Pulse Resp B/P (MAP) Pulse Ox O2 Delivery O2 Flow Rate FiO2 05/02/21 12:00 97.9 91 20 133/73 (93) 95 Room Air I&O- Last 24 Hours up to 6 AM 05/02/21 06:00 Intake Total 0 ml Output Total 0 ml Balance 0 ml Laboratory Data 24H LABS Laboratory Tests 2 05/01/21 22:28: Immature Granulocyte % (Auto) 0.5, Neutrophils (%) (Auto) 73.0H, Lymphocytes (%) (Auto) 18.8L, Monocytes (%) (Auto) 7.4, Eosinophils (%) (Auto) 0.1, Basophils (%) (Auto) 0.2, Neutrophils # (Auto) 7.8, Lymphocytes # (Auto) 2.0, Monocytes # (Auto) 0.8, Eosinophils # (Auto) 0.0, Basophils # (Auto) 0.0, Nucleated Red Blood Cells % (auto) 0.0, Anion Gap 5L, Glomerular Filtration Rate > 60.0, Calcium Level 9.4, Magnesium Level 2.1 05/01/21 23:33: Coronavirus (COVID-19)(PCR) NEGATIVE, Influenza Type A (RT-PCR) NEGATIVE, Influenza Type B (RT-PCR) NEGATIVE, Respiratory Syncytial Virus (PCR) NEGATIVE 05/01/21 23:52: POC Troponin I (Misc) 0.00 05/02/21 05:58: 05/02/21 06:01: Immature Granulocyte % (Auto) 0.3, Neutrophils (%) (Auto) 60.3, Lymphocytes (%) (Auto) 29.0, Monocytes (%) (Auto) 9.1H, Eosinophils (%) (Auto) 0.7, Basophils (%) (Auto) 0.6, Neutrophils # (Auto) 8.7H, Lymphocytes # (Auto) 4.2, Monocytes # (Auto) 1.3H, Eosinophils # (Auto) 0.1, Basophils # (Auto) 0.1, Nucleated Red Blood Cells % (auto) 0.0, Neutrophils 59, Lymphocytes (Manual) 34, Monocytes (Manual) 4, Eosinophils (Manual) 1, Basophils (Manual) 1, Atypical Lymphocytes 1, Polychromasia 1+, Anisocytosis 1+, Microcytosis 1+, Schistocytes 1+, Ovalocytes 1+, Stomatocytes 1+, Platelet Estimate INCREASED, Anion Gap 8, Glomerular Filtration Rate > 60.0, Calcium Level 9.6, Magnesium Level 2.0, Iron Level 18L, Total Iron Binding Capacity 490H, Transferrin % Saturation 3.7L, Ferritin 10, Total Bilirubin 0.4, Aspartate Amino Transf (AST/SGOT) 41H, Alanine Aminotransferase (ALT/SGPT) 54, Alkaline Phosphatase 59, Total Creatine Kinase 45, Creatine Kinase MB 1.9, Creatine Kinase MB Relative Index 4.22H, Troponin I 0.02, Total Protein 7.4, Albumin 3.6, Albumin/Globulin Ratio 0.9L, Thyroid Stimulating Hormone (TSH) 7.590H, Free Thyroxine 1.25 CBC/BMP Laboratory Tests 05/01/21 22:28 05/02/21 06:01 PAULA ABRAMS M.D. May 02, 2021 15:32
[2021-05-02] MEDS: METOPROLOL TART 25 MG TABLET PO SCH ×2 (15:34→21:15)
[2021-05-02] MEDS ORDERED: POTASSIUM CHLORIDE 10MEQ SR TABLET PO ONE (16:00)
[2021-05-02] MEDS: ACETAMINOPHEN TAB 650MG DOSE (2X325MG) PO SCH (16:02)
[2021-05-02] MEDS ORDERED: **NOTE PATIENT COMMENT** MISC XX SCH (17:00)
[2021-05-02] MEDS: hydrOXYzine 25 MG TAB PO PRN (21:14)
[2021-05-03] VITALS (11 sets, daily range): BP systolic 123–195; BP diastolic 60–93
[2021-05-03] MEDS: METOPROLOL TART 25 MG TABLET PO SCH ×2 (06:00→13:05)
[2021-05-03] MEDS: ENOXAPARIN 60MG/0.6ML SYRINGE (J1650 PER 10MG) SC SCH (07:26)
[2021-05-03] MEDS: ACETAMINOPHEN TAB 650MG DOSE (2X325MG) PO SCH ×3 (07:52→14:54)
[2021-05-03] MEDS ORDERED: amLODIPine 5 MG TAB PO SCH (09:00)
[2021-05-03] MEDS ORDERED: VALSARTAN 40MG TABLET (DIOVAN) PO SCH (09:00)
[2021-05-03] MEDS ORDERED: CHLORTHALIDONE 25 MG TAB PO SCH (09:00)
[2021-05-03] MEDS: LIDOCAINE 5% (LIDODERM) PATCH TD SCH (09:04)
--- NOTE | 2021-05-03 09:04 | ECGEPIP ---
[facility] Test Date: 2021-05-02 Pat Name: TOÑO CUMMINGS Department: Room: [place] [address] Gender: Female Title Curative Specialist: NICK : 1945 Requested By: MICHELLE ALLEN D.O. Order Number: [id number] Reading MD: Jose R Wilsno Measurements Intervals [place] Rate: 143 P: [place]: QRS: -31 QRSD: 88 T: 33 QT: 304 QTc: 469 Interpretive Statements Atrial fibrillation with rapid ventricular response Left axis deviation Nonspecific ST-T wave abnormalities previous tracing done on same date at 0:08 was sinus Electronically Signed on 05-03-2021 9:04:33 EDT by Jose R Wilson
[2021-05-03] MEDS ORDERED: VALSARTAN 40MG TABLET (DIOVAN) PO ONE (10:05)
--- NOTE | 2021-05-03 11:22 | CR.PDOC ---
General Date of Consultation: May 03, 2021 Attending Physician: LEONA CANAS MD Consultation History and Physical CHIEF COMPLAINT: Left lower extremity pain. Came to emerge for a " shot" admitted to medicine for work-up. HISTORY OF PRESENT ILLNESS: is a lesli 76yo female with notable PMHx of HTN, recurrent UTIs, and OA who presented to the [facility] ED on the evening of 05/01/21 with a chief complaint of left lower extremity pain. The patient's pain began on Tuesday, 04/27 and she describes the pain as a constant burning over the anterior left thigh that becomes a sharp 10/10 pain when she ambulates. Denies any back pain. Denies any paresthesias. Denies any knee pain. the pain is pain is just above the patella anteriorly. No posterior knee pain. Not exacerbated with range of motion of knee or hip. Pain is worse with weightbearing. Patient received an injection 3 years ago which relieved her pain. she received injections of Solu- Medrol and Toradol which helped somewhat, but the intervention that ultimately helped resolve the pain was physical therapy in [place]. Denies any red flag symptoms Patient admitted to medicine for hypertension and cardiac work-up. PAST MEDICAL HISTORY: Hypertension; follows with a municipal maintenance worker in [place], takes valsartan as outpatient Recurrent UTIs; most recent UTI confirmed on culture 04/22/2021 growing Klebsiella and was treated with 5 days of Macrobid Osteoarthritis PAST SURGICAL HISTORY: Hysterectomy SOCIAL HISTORY: Patient lives half the year here in [place] and the other half of the year in [place]. She has a significant other. She did have a son when she was 17 who unfortunately in a motor vehicle accident 1995. 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 She denies any current or former use of tobacco products, alcohol, or illicit/IV drugs. Of note, she is fully vaccinated against the novel coronavirus. FAMILY HISTORY: Father: ; lung cancer in the setting of a longtime smoker Mother: ; unknown reasons, possibly related to infection of her knee Sister: Living; CAD status post triple bypass within the last year Son: after a motor vehicle accident in 1995; prior to that he had no known significant medical issues. ALLERGIES: Please see below. REVIEW OF SYSTEMS: CONSTITUTIONAL: Denies fever, chills, night sweats, or recent unintentional change in weight HEENT: Denies any recent vision or hearing changes. CARDIOVASCULAR: Denies chest pain, chest pressure, or palpitations RESPIRATORY: Denies shortness of breath, pleuritic chest pain, or cough GASTROINTESTINAL: Denies abdominal pain, nausea, vomiting, diarrhea, or blood in stool GENITOURINARY: Denies dysuria or hematuria MUSCULOSKELETAL: Reports left lower extremity pain as extensively described in HPI NEUROLOGICAL: Reports having a headache when she presented to the ED which has resolved at the time of our evaluation. Denies any recent bowel or bladder incontinence; also denies any saddle anesthesia, gait instability or recent falls as well as denying any numbness or [id number] sensation of the extremities. PSYCHIATRIC: Reports some anxiety regarding her current status HEMATOLOGIC: Denies any recent easy bleeding or bruising LYMPHATIC: Denies any new lumps or bumps HOME MEDICATIONS: Please see below. PHYSICAL EXAMINATION: VITAL SIGNS: Stable GENERAL APPEARANCE: Very pleasant elderly female lying upright in ED bed. She at times appears to be in mild discomfort but does not appear to be in any acute distress. Alert and oriented x3. Was able to walk to the bathroom and back. She states she has a lot of pain when she walks. HEENT: Normocephalic, EOMI. PERRLA. Neck: Normal range of motion no pain CARDIOVASCULAR: No chest pain, vital signs stable ABDOMEN: Soft, nontender nondistended. MUSCULOSKELETAL: Focused lower extremity exam Denies any back pain. 5/5 muscle strength of upper and lower extremities bilaterally. Leg lengths seem symmetrical Range of motion causes no pain, flexion internal rotation does not exacerbate pain Range of motion of the knee does not exacerbate pain Pain is suprapatellar anteriorly No knee effusion No pain with palpation of patella Skin overlying the lower extremity is normal. No rashes or ecchymoses. Sensory intact to light touch, denies any paresthesias Capillary refill normal NEUROLOGICAL: Alert and oriented x3. Sensation of bilateral lower extremities is intact to light touch. PSYCHIATRIC: Very pleasant mood that at times is anxious. Appropriate appearing affect. LABORATORY DATA: Please see below. IMAGING: Left hip anterior posterior/lateral x-ray, 05/01/2021 FINDINGS: Bones/joints: Moderate to severe degenerative changes of the left hip joint. No acute fracture. No dislocation. Soft tissues: Unremarkable. IMPRESSION: Moderate to severe degenerative changes of the left hip joint. Lumbar spine x-ray, 05/01/2021 FINDINGS: Bones/joints: Scoliosis of the lumbar spine with convexity to the right. Multilevel degenerative disc disease. Vertebral heights are maintained. No spondylolisthesis. Soft tissues: Unremarkable. IMPRESSION: No acute abnormality. ASSESSMENT & PLAN: This is a 76yo female w/ notable h/o HTN, recurrent UTIs, and OA who presented to the ED on 05/01 complaining of five days of LLE pain that was not improved with outpt tramadol, acetaminophen, and prednisone. She had hypertensive urgency in the ED most likely secondary to pain and anxiety and subsequently developed new onset atrial fibrillation soon after admission. Possible source of her lower extremity pain could be hip osteoarthritis or lumbar radiculopathy. Cannot rule out pathology further distally in the femur not imaged by x-rays. Recommend further outpatient work-up by family physician. Plan: 1. Recommend x-ray left femur complete AP and lateral (patient declined further x-rays) 2. Follow-up with family practitioner and outpatient work-up for pain or referral. 3. Patient may have received a IM NSAID injection in the emergency department 3 years ago. I defer to medicine if she is medically able to receive. 4. Any intra-articular hip injection needs further work-up as outpatient. Suggest she follow-up with her family physician. Vital Signs/I&O Vital Signs Date Time Temp Pulse Resp B/P (MAP) Pulse Ox O2 Delivery O2 Flow Rate FiO2 05/03/21 10:28 175/84 05/03/21 08:45 62 05/03/21 07:44 97.9 18 96 Room Air I&O- Last 24 Hours up to 6 AM 05/03/21 06:00 Intake Total 490 ml Output Total 300 ml Balance 190 ml Allergies Coded Allergies: No Known Allergies (Unverified , 06/01/17) Home Medications Scheduled Tramadol HCl (Tramadol HCl) 50 Mg Tab, 50 MG PO BID, (Reported) Valsartan (Valsartan) 40 Mg Tablet, 40 MG PO BID, (Reported) Scheduled PRN Acetaminophen (Acetaminophen ER) 650 Mg Tablet.er, 1,000 MG PO for PAIN LEVEL 1- 4, (Reported) Miscellaneous Medications [Med Rec Comment] , (Reported) PATIENT STATES SHE TAKES SOMETHING FOR HER STOMACH BUT CAN'T RECALL WHAT IT IS CALLED., NOTHING IN EXTERNAL FOR THIS LEONA CANAS MD May 03, 2021 11:22
[2021-05-03] MEDS ORDERED: KETOROLAC 30 MG/ML 1ML VIAL IV ONE (14:30)
--- NOTE | 2021-05-03 14:38 | IPNPDOC ---
Subjective Date Seen The patient was seen on 05/03/21. Subjective Chief Complaint/HPI Patient was seen and examined at bedside this morning. She was complaining of her right chronic hip pain that she reportedly had an injection on 3 years ago and found much relief. She was explained her x-ray findings and would need outpatient follow-up for an evaluation of joint injections or even possible a hip replacement. However, she was persistent and getting evaluated by orthopedic team. Objective Physical Examination Other physical findings General: Lying in bed, no acute distress Head/Neck/Throat: Trachea midline, mucous membranes moist Eyes: Sclera anicteric, PERRLA Thorax: Normal respiratory effort on room air, lungs clear to auscultation bilaterally, no wheezes/rales/rhonchi Cardiovascular: Normal rate, regular rhythm, normal S1, S2; no S3, S4, rubs/gallops/murmurs Abdomen: Bowel sounds present, soft/nontender/nondistended Genitourinary: No CVA tenderness, no Sterling in place Musculoskeletal: Mild right lower extremity pain reported from her groin region into the thigh Skin: Warm, dry Neurologic: AAOx3, speech fluent and goal-directed, no focal deficits, grossly intact Assessment /Plan Assessment #Hypertensive urgency -This has resolved. #Hypertension -Continue with valsartan. For better blood pressure control amlodipine was added. #New onset atrial fibrillation with RVR -We will start patient on metoprolol. [id number] score 4, she will be started on apixaban 5 mg twice daily. #Osteoarthritis -She was advised to follow-up with her primary care physician or orthopedics as an outpatient as this was unlikely to be done during hospitalization. However, persistent that she will not leave without an orthopedic evaluation. -Physical therapy during hospitalization -Tylenol for pain #Microcytic anemia -Iron panel is consistent with iron deficiency anemia. H&H remained stable, further work-up was encouraged as outpatient with her primary care physician. #Subclinical hypothyroidism -Repeat TSH in 4 to 6 weeks with primary care physician #Transaminitis -AST slightly elevated. Abdomen is benign. Patient was asked to follow-up with her primary care physician for further evaluation. #DVT prophylaxis -Offered the Eliquis. Plan/VTE VTE Prophylaxis Ordered?: Yes VS, I&O, 24H, Fishbone Vital Signs/I&O Vital Signs Date Time Temp Pulse Resp B/P (MAP) Pulse Ox O2 Delivery O2 Flow Rate FiO2 05/03/21 13:05 68 162/80 05/03/21 12:00 98.4 18 96 Room Air I&O- Last 24 Hours up to 6 AM 05/03/21 06:00 Intake Total 490 ml Output Total 300 ml Balance 190 ml PAULA ABRAMS M.D. May 03, 2021 14:38
[2021-05-03] MEDS: FERROUS SULFATE 325MG TAB PO SCH (14:54)
[2021-05-03] MEDS ORDERED: amLODIPine 5 MG TAB PO ONE (17:00)
[2021-05-03] MEDS ORDERED: VALSARTAN 80 MG TAB (DIOVAN) PO ONE (19:45)
[2021-05-03] MEDS: APIXABAN 5 MG TAB (ELIQUIS) PO SCH (20:34)
[2021-05-03] MEDS: hydrOXYzine 25 MG TAB PO PRN (20:34)
[2021-05-03] MEDS: DICLOFENAC EPOLAMINE 1.3 % PATCH TOP SCH (20:37)
[2021-05-03] MEDS ORDERED: **NOTE PATIENT COMMENT** MISC XX SCH (21:00)
[2021-05-03] MEDS ORDERED: **hydrALAZINE HCL** 25 MG TAB PO SCH (22:05)
[2021-05-03] MEDS ORDERED: **hydrALAZINE HCL** 25 MG TAB PO ONE (22:15)
[2021-05-04] VITALS: BP 153/72
[2021-05-04] MEDS: ACETAMINOPHEN TAB 650MG DOSE (2X325MG) PO SCH ×2 (00:30→09:12)
[2021-05-04 05:07] VITALS: BP 142/73
[2021-05-04 05:55] LABS: HEMATOCRIT 36.6 % (36.0-47.0); HEMOGLOBIN 10.8 g/dl (12.0-15.5); MEAN CORPUSCULAR HEMOGLOBIN 22.5 pg (27.0-33.0); MEAN CORPUSCULAR HGB CONC 29.5 g/dl (32.0-36.5); MEAN CORPUSCULAR VOLUME 76.1 fl (80.0-96.0); PLATELET COUNT, AUTOMATED 353 10^3/uL (150-450); RED BLOOD COUNT 4.81 10^6/uL (4.00-5.40); WHITE BLOOD COUNT 7.6 10^3/uL (4.0-10.0)
[2021-05-04 06:20] LABS: MAGNESIUM LEVEL 1.8 MG/DL (1.8-2.4); PHOSPHORUS LEVEL 3.5 MG/DL (2.5-4.9)
[2021-05-04 08:00] VITALS: BP 162/83
[2021-05-04] MEDS ORDERED: CHLO25TA PO (08:21)
[2021-05-04] MEDS ORDERED: ELIQ5TAB PO (08:21)
[2021-05-04] MEDS ORDERED: VALS1TAB68 PO (08:21)
[2021-05-04] MEDS ORDERED: FERR1TAB8 PO (08:21)
[2021-05-04] MEDS ORDERED: ALDA25TA2 PO (08:21)
[2021-05-04] MEDS ORDERED: AMLO1TAB25 PO (08:21)
[2021-05-04] MEDS ORDERED: METO1TAB87 PO (08:21)
[2021-05-04] MEDS ORDERED: MM S100C PO (08:23)
[2021-05-04] MEDS ORDERED: SPIRONOLACTONE 12.5MG PER 1/2 TABLET PO SCH (09:00)
[2021-05-04] MEDS ORDERED: **hydrALAZINE** 50 MG TAB PO SCH (09:00)
[2021-05-04] MEDS ORDERED: CHLORTHALIDONE 25 MG TAB PO SCH (09:00)
[2021-05-04] MEDS ORDERED: VALSARTAN 80 MG TAB (DIOVAN) PO SCH ×3 (09:00)
[2021-05-04 09:12] VITALS: BP 162/83
[2021-05-04] MEDS: APIXABAN 5 MG TAB (ELIQUIS) PO SCH (09:12)
[2021-05-04] MEDS: FERROUS SULFATE 325MG TAB PO SCH (09:14)
[2021-05-04] MEDS: LIDOCAINE 5% (LIDODERM) PATCH TD SCH (09:15)
[2021-05-04] MEDS: DICLOFENAC EPOLAMINE 1.3 % PATCH TOP SCH (09:15)
[2021-05-04] MEDS ORDERED: BENG1CRE TOP (09:28)
--- NOTE | 2021-05-04 13:30 | DS.PDOC ---
Discharge Summary General Date of Admission May 02, 2021 at 00:36 Date of Discharge 05/04/21 Discharge Summary DISCHARGE DIAGNOSES: 1. HTN urgency 2. New onset A.fib 3. Osteoarthritis COMPLICATIONS/CHIEF COMPLAINT: Hypertensive Urgency, Paresthesia. HOSPITAL COURSE: Ms. Collado, 76-year-old female with a past medical history of hypertension, recurrent urinary tract infections, osteoarthritis presented to [facility] on the evening of 05/01/2021 with complaints of left lower extremity pain. X-rays of the left hip done showed moderate to severe osteoarthritis. She was evaluated by the orthopedic team and no acute interventions were deemed necessary. A x-ray of the left femur with complete AP/lateral views was recommended however patient refused. She was asked to follow-up with her primary care physician as well as orthopedics team as an outpatient. There is also suspicion for meralgia paresthetica as she endorsed wearing tight pants for her workplace. Therefore she was educated about this as well. At the time of admission, she was also noted to be in hypertensive urgency. She will be discharged home with a change in the dosage of her valsartan; and she will be started on chlorthalidone, spironolactone, and amlodipine. She was educated about having close follow with the primary care physician and explained that she has resistant hypertension that needs further work-up as an outpatient. In addition, she also had new onset atrial fibrillation with rapid ventricular response which is controlled with metoprolol 25 mg twice daily, and she was placed on Eliquis 5 mg twice daily. She accepted risks of these medications there were explained to her in length. She has iron deficiency anemia. She was started on iron supplementation and asked to follow-up with primary care physician for further work-up. At the time of hospitalization her hemoglobin remained stable as well as her hemodynamics. Patient encouraged to obtain all records including imaging for her records and appropriate follow-ups required. DISCHARGE MEDICATIONS: Please see below. ALLERGIES: Please see below. PHYSICAL EXAMINATION ON DISCHARGE: VITAL SIGNS: Please see below. General: Lying in bed, no acute distress Head/Neck/Throat: Trachea midline, mucous membranes moist Eyes: Sclera anicteric, no erythema or discharge appreciated bilaterally Thorax: Normal respiratory effort on room air, lungs clear to auscultation bilaterally, no wheezes/rales/rhonchi Cardiovascular: Normal rate, regular rhythm, normal S1, S2; peripheral pulses including radial, popliteal, tibial, and dorsalis pedis 2+ Abdomen: Bowel sounds present, soft/nontender/nondistended Genitourinary: No CVA tenderness, no Stelring in place Musculoskeletal: Left thigh is soft, nontender, sensation intact, normal temperature, no erythema appreciated Skin: Warm, dry Neurologic: AAOx3, speech fluent and goal-directed, no focal deficits, grossly intact LABORATORY DATA: Please see below. IMAGING: Hip, Ap,Lat LEFT Bones/joints: Moderate to severe degenerative changes of the left hip joint. No acute fracture. No dislocation. Soft tissues: Unremarkable. IMPRESSION: Moderate to severe degenerative changes of the left hip joint. Spine. Lumbosacral, complete FINDINGS: Bones/joints: Scoliosis of the lumbar spine with convexity to the right. Multilevel degenerative disc disease. Vertebral heights are maintained. No spondylolisthesis. Soft tissues: Unremarkable. IMPRESSION: No acute abnormality. CT Head without contrast FINDINGS: Brain: There are mild periventricular and subcortical lucencies consistent with chronic microvascular ischemic changes. The chew-white differentiation is maintained. No hemorrhage. No edema. Cerebral ventricles: No ventriculomegaly. Paranasal sinuses: Visualized sinuses are unremarkable. No fluid levels. Mastoid air cells: Visualized mastoid air cells are well aerated. Bones/joints: Unremarkable. No acute fracture. Soft tissues: Unremarkable. IMPRESSION: No acute intracranial abnormality. Chronic microvascular ischemic changes Echocardiogram was also done during this hospitalization please refer to results. PROGNOSIS: Good ACTIVITY: As tolerated DIET: Regular DISCHARGE INSTRUCTIONS: Patient is to follow-up with her primary care physician, orthopedics, and pain management clinic DISCHARGE CONDITION: Stable TIME SPENT ON DISCHARGE: 30 minutes. Vital Signs/I&Os Vital Signs Date Time Temp Pulse Resp B/P (MAP) Pulse Ox O2 Delivery O2 Flow Rate FiO2 05/04/21 05:07 97.4 77 20 142/73 (96) 95 Room Air l I&O- Last 24 Hours up to 6 AM 05/04/21 05:59 Intake Total 900 ml Output Total 700 ml Balance 200 ml Laboratory Data Labs 24H Laboratory Tests 2 05/04/21 05:23: Nucleated Red Blood Cells % (auto) 0.0, Phosphorus Level 3.5, Magnesium Level 1.8 CBC/BMP Laboratory Tests 05/04/21 05:23 Discharge Medications Scheduled Amlodipine Besylate (Amlodipine Besylate) 10 Mg Tablet, 10 MG PO DAILY Apixaban (Eliquis) 5 Mg Tablet, 5 MG PO BID Chlorthalidone (Chlorthalidone) 25 Mg Tablet, 50 MG PO DAILY Docusate Sodium (Stool Softener) 100 Mg Capsule, 100 MG PO DAILY Ferrous Sulfate (Ferrous Sulfate) 325 Mg Tablet, 325 MG PO DAILY Methyl Salicylate/Menth/Camph (Bengay Ultra Strength Cream) 57 Gm Cream..g., 1 APLCT TOP DAILY Apply to left hip for 5-7 days Metoprolol Tartrate (Metoprolol Tartrate) 25 Mg Tablet, 25 MG PO BID Tramadol HCl (Tramadol HCl) 50 Mg Tab, 50 MG PO BID, (Reported) Valsartan (Valsartan) 320 Mg Tablet, 320 MG PO DAILY Scheduled PRN Acetaminophen (Acetaminophen ER) 650 Mg Tablet.er, 1,000 MG PO for PAIN LEVEL 1- 4, (Reported) Allergies Coded Allergies: No Known Allergies (Unverified , 06/01/17) PAULA ABRAMS M.D. May 04, 2021 08:16
[2021-05-04] MEDS ORDERED: METOPROLOL TART 25 MG TABLET PO SCH (21:00)
== END 2021-05-04 10:40 | disposition home or self-care (01) | DRG 554 ==
LOC: M ED 17:20 → M ED INP 05-02 00:36 → M PCU 05-02 02:53
PROVIDERS: ADMIT Internal Medicine; ATTEND Internal Medicine
DX: M16.12 Unilateral primary osteoarthritis, left hip (principal); I16.0 Hypertensive urgency; I48.91 Unspecified atrial fibrillation; D50.9 Iron deficiency anemia, unspecified; R74.01 Elevation of levels of liver transaminase levels; F41.9 Anxiety disorder, unspecified; I10 Essential (primary) hypertension; E02 Subclinical iodine-deficiency hypothyroidism; Z87.440 Personal history of urinary (tract) infections; Z87.891 Personal history of nicotine dependence; Z20.822 Contact with and (suspected) exposure to COVID-19; Z79.891 Long term (current) use of opiate analgesic; Z79.899 Other long term (current) drug therapy

== ENCOUNTER → 2022-03-30 | Outpatient (REF) | payer MEDICARE, BC ==
[~2022-03-30] MED LIST changes: +ACE65ERTAB PO; +ALDA25TA2 PO; +AMLO1TAB25 PO; +BENG1CRE TOP; +CHLO25TA PO; +ELIQ5TAB PO; +FERR1TAB8 PO; +MED REC COMMENT; +METO1TAB87 PO; +MM S100C PO; +VALS1TAB68 PO; +VALS40TA9 PO
[2022-03-30 18:35] LABS: PERCENT SATURATION 16.7 % (13.2-45.0)
== END ==
LOC: M LAB REF 16:14
PROVIDERS: ATTEND Family Medicine
DX: D50.9 Iron deficiency anemia, unspecified (principal)

== ENCOUNTER → 2022-04-27 | Outpatient (REF) | payer MEDICARE, BC | LOC: M LAB REF 16:20 | PROVIDERS: ATTEND Family Medicine | DX: R35.0 Frequency of micturition (principal); R30.0 Dysuria ==

== ENCOUNTER → 2022-05-12 | Outpatient (CLI) | payer MEDICARE, BC | LOC: M PLAIMG 16:01 | PROVIDERS: ATTEND Family Medicine | DX: R06.02 Shortness of breath (principal) ==

== ENCOUNTER → 2023-02-10 | Outpatient (REF) | payer MEDICARE, BC | LOC: M LAB REF 16:35 | PROVIDERS: ATTEND Nurse Practitioner Family | DX: N39.0 Urinary tract infection, site not specified (principal) ==

== ENCOUNTER → 2023-02-24 | Outpatient (REF) | payer MEDICARE, BC ==
[2023-02-24 13:04] LABS: PERCENT SATURATION 13.2 % (13.2-45.0)
[2023-02-24 19:59] LABS: FERRITIN 25.2 NG/ML (7.3-270.7)
== END ==
LOC: M LAB REF 11:34
PROVIDERS: ATTEND Nurse Practitioner Adult Health
DX: D64.9 Anemia, unspecified (principal)

== ENCOUNTER → 2023-02-28 | Outpatient (REF) | payer MEDICARE, BC | LOC: M LAB REF 16:28 | PROVIDERS: ATTEND Nurse Practitioner Family | DX: N39.0 Urinary tract infection, site not specified (principal); R31.9 Hematuria, unspecified ==

== ENCOUNTER → 2023-04-21 | Outpatient (REF) | payer MEDICARE, BC ==
[~2023-04-21] MED LIST changes: -CELE1CAP7 PO; +CELE1CAP8 PO
== END ==
LOC: M LAB REF 12:17
PROVIDERS: ATTEND Nurse Practitioner Family
DX: R30.0 Dysuria (principal); R35.0 Frequency of micturition

== ENCOUNTER → 2023-12-06 | Outpatient (REF) | payer MEDICARE ==
[~2023-12-06] MED LIST changes: -CELE1CAP8 PO; +CELE1CAP99 PO
[2023-12-06 12:25] LABS: FOLATE 22.45 NG/ML (>5.4)
== END ==
LOC: M LAB REF 11:34
PROVIDERS: ATTEND Family Medicine
DX: E53.8 Deficiency of other specified B group vitamins (principal)

== ENCOUNTER → 2025-02-18 | Outpatient (REF) | payer MEDICARE, BC ==
[~2025-02-18] MED LIST changes: -ACE65ERTAB PO; +ACET-1593 PO
== END ==
LOC: M LAB REF 11:49
PROVIDERS: ATTEND Family Medicine
DX: R32 Unspecified urinary incontinence (principal); N39.0 Urinary tract infection, site not specified

== ENCOUNTER → 2025-02-21 | Outpatient (REF) | payer MEDICARE, BC | LOC: M LAB REF 17:21 | PROVIDERS: ATTEND Nurse Practitioner Adult Health | DX: R31.9 Hematuria, unspecified (principal) ==

== ENCOUNTER → 2025-02-26 | Outpatient (REF) | payer MEDICARE, BC | LOC: M LAB REF 17:21 | PROVIDERS: ATTEND Nurse Practitioner Adult Health | DX: N39.0 Urinary tract infection, site not specified (principal); R32 Unspecified urinary incontinence ==

== ENCOUNTER → 2025-04-22 | Outpatient (CLI) | payer MEDICARE, BC | LOC: M WUC 10:35 | DX: J06.9 Acute upper respiratory infection, unspecified (principal); R05.9 Cough, unspecified; K44.9 Diaphragmatic hernia without obstruction or gangrene; I51.7 Cardiomegaly ==

== ENCOUNTER → 2025-05-10 | Outpatient (REF) | payer MEDICARE, BC | LOC: M LAB REF 11:58 | PROVIDERS: ATTEND Family Medicine | DX: D51.9 Vitamin B12 deficiency anemia, unspecified (principal) ==